=== PATIENT | female | born 2000 | race Caucasian/White ===

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

== ENCOUNTER → 2019-09-28 | Outpatient (CLI) | payer OTHER, MEDICAID ==
[~2019-09-28] MED LIST changes: +OMEP1CAP73 PO; -OMEP20CA4 PO
[2019-09-28 09:51] LABS: BASO % 0.6 % (0.0-1.0); EOS # 0.1 10^3/uL (0.0-0.5); EOS % 1.9 % (0.0-3.0); HEMATOCRIT 41.9 % (36.0-47.0); HEMOGLOBIN 13.5 g/dl (12.0-15.5); LYMPH # 2.2 10^3/uL (1.5-5.0); LYMPH % 29.8 % (24.0-44.0); MEAN CORPUSCULAR HEMOGLOBIN 28.1 pg (27.0-33.0); MEAN CORPUSCULAR HGB CONC 32.2 g/dl (32.0-36.5); MEAN CORPUSCULAR VOLUME 87.1 fl (80.0-96.0); MONO # 0.5 10^3/uL (0.0-0.8); MONO % 6.4 % (0.0-5.0); NEUTROPHILS # 4.4 10^3/uL (1.5-8.5); PLATELET COUNT, AUTOMATED 322 10^3/uL (150-450); RED BLOOD COUNT 4.81 10^6/uL (4.00-5.40); WHITE BLOOD COUNT 7.2 10^3/uL (4.0-10.0)
[2019-09-28 10:16] LABS: ALBUMIN 3.5 GM/DL (3.2-5.2); ALT/SGPT 28 U/L (12-78); BILIRUBIN,TOTAL 0.3 MG/DL (0.2-1.0); BLOOD UREA NITROGEN 11 MG/DL (7-18); CALCIUM LEVEL 9.2 MG/DL (8.5-10.1); CARBON DIOXIDE LEVEL 23 MEQ/L (21-32); CHLORIDE LEVEL 106 MEQ/L (98-107); GLUCOSE, FASTING 89 MG/DL (70-100); POTASSIUM SERUM 4.5 MEQ/L (3.5-5.1); SODIUM LEVEL 140 MEQ/L (136-145)
== END ==
LOC: M WUC 08:09
PROVIDERS: ATTEND Nurse Practitioner Adult Health
DX: R10.31 Right lower quadrant pain (principal); K58.0 Irritable bowel syndrome with diarrhea; R10.11 Right upper quadrant pain

== ENCOUNTER → 2020-01-15 | Outpatient (REF) | payer OTHER, MEDICAID | LOC: M WUC 16:42 | PROVIDERS: ATTEND Nurse Practitioner Family | DX: J02.9 Acute pharyngitis, unspecified (principal) ==

== ENCOUNTER 2020-04-05 19:03 | Emergency (ER) | payer OTHER, MEDICAID ==
[~2020-04-05] VITALS: Ht 157.5 cm; Wt 56.6 kg
[2020-04-05] MEDS ORDERED: ENSK1TAB3 (19:14)
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
--- OUTSIDE RECORDS SUMMARY | 2020-04-05 19:14 | CCD | Continuity of Care Document ---
Author Author Vicky DUNHAM Organization Unknown Address [address] [facility] [address] [place] [address] Phone [phone] Care Team Providers Care Portable Feed Mill Operator Name Role Phone Montez Kelly MD AUTM [phone] Montez Kelly MD AUTM [phone] Victorina Cardenas MD AUTM [phone] Problems Description No Information Available Social History Type Date Description Comments Sex Unknown ETOH Use Denies alcohol use Tobacco Use Start: Unknown Denies Smoking Allergies, Adverse Reactions, Alerts Description No Known Drug Allergies Medications Active Medications SIG Qnty Indications Ordering Provide r Date Sprintec 28 0.25-35mg-mcg Tablets Unknown Omeprazole 20mg Capsules DR 1 by mouth every day Unknown Immunizations Description No Information Available Vital Signs Date Vital Result Comment 02/28/2020 9:13am Body Temperature 97.1 F Height 62 inches 5'2" Weight 125.00 lb BMI (Body Mass Index) 22.9 kg/m2 01/13/2018 10:24am Body Temperature 98.7 F Height 63 inches 5'3" Weight 117.12 lb BMI (Body Mass Index) 20.7 kg/m2 Results Description No Information Available Procedures Date Code Description Status 02/28/2020 02247 X-Ray Shoulder Complete Complete d Medical Devices Description No Information Available Encounters Type Date Location Provider Dx Diagnosis Office Visit 03/28/2020 1:30p [facility] Brenda Dunham PA-C S4 6.112D Strain of musc/fasc/tend long head of biceps, left arm, subs S46.012D Strain of musc/tend the rota tor cuff of left shoulder, subs Office Visit 02/28/2020 9:00a [facility] Brenda Dunham PA-C S4 6.112A Strain of musc/fasc/tend long head of biceps, left arm, init S46.012A Strain of musc/tend the rota tor cuff of left shoulder, init Assessments Date Code Description Provider 03/28/2020 S46.112D Strain of muscle, fa scia and tendon of long head of biceps, left arm, subsequent encounter Brenda Dunham PA-C 03/28/2020 S46.012D Strain of muscle(s) and tendon(s) of the rotator cuff of left shoulder, subsequent encounter Brenda Dunham PA-C 02/28/2020 S46.112A Strain of muscle, fa scia and tendon of long head of biceps, left arm, initial encounter Brenda Dunham PA-C 02/28/2020 S46.012A Strain of muscle(s) and tendon(s) of the rotator cuff of left shoulder, initial encounter Brenda Dunham PA-C Plan of Treatment 03/28/2020 - Brenda Dunham PA-C* S46.112D Strain of muscle, fascia and tendon of long head of biceps, left arm, subsequent encounter* New Xrays:* MRI Arthrogram LT Shoulder, Ordered: 03/28/20 * Follow up:* after lt shoulder mri arthrogram for results with bms * S46.012D Strain of muscle(s) and tendon(s) of the rotator cuff of left shoulder, subsequent encounter Functional Status Description No Information Available Mental Status Description No Information Available Referrals Refer to Reason for Referral Status Appt Date Pauline Quezada PA-C AUTHORIZATION FOR PHYSICAL T HERAPY EVAL 02679, 07449, 80303. PATIENT GOING TO [facility]. PASSED TO CHART. HW Created 00 [address] [facility] [address] [place] [address] [phone]
--- OUTSIDE RECORDS SUMMARY | 2020-04-05 19:14 | CCD | Continuity of Care Document ---
Author Author Vicky MARINO Organization Unknown Address [address] [place] [address] Phone [phone] Care Team Providers Care Cupola Repairer Name Role Phone [facility] AUTM [phone] Problems Description No Information Available Social History Type Date Description Comments Sex Unknown ETOH Use Denies alcohol use Tobacco Use Start: Unknown Patient has never smoked Smoking Status Reviewed: 01/14/20 Patient has never smoked Allergies, Adverse Reactions, Alerts Description No Known Drug Allergies Medications Active Medications SIG Qnty Indications Ordering Provide r Date Prednisone 20mg Tablets 1 tab twice a day for 4 days 8tabs J02.9 Jack Teague JR., M.D. R21 [place] Unknown Immunizations Description No Information Available Vital Signs Date Vital Result Comment 01/14/2020 7:18pm BP Systolic 118 mmHg BP Diastolic 79 mmHg Heart Rate 91 /min Respiratory Rate 14 /min O2 % BldC Oximetry 100 % Body Temperature 98.6 F Weight 125.00 lb Height 62 inches 5'2" BMI (Body Mass Index) 22.9 kg/m2 Pain Level 7 01/13/2020 7:04pm BP Systolic 135 mmHg BP Diastolic 82 mmHg Heart Rate 102 /min Respiratory Rate 16 /min O2 % BldC Oximetry 98 % Body Temperature 99.1 F Weight 125.00 lb Height 62 inches 5'2" BMI (Body Mass Index) 22.9 kg/m2 Pain Level 8 Results Test Acquired Date Facility Test Result H/L Range Note Throat Culture 01/15/2020 [facility] [address] [place] [address] [phone] Throat Culture FULL REPORT IN L <SEE NOTE> Normal 1 1 FULL REPORT IN LAB NOTES (eC W and [facility]). NORMAL POONAM PRESENT Procedures Description No Information Available Medical Devices Description No Information Available Encounters Type Date Location Provider Dx Diagnosis Office Visit 01/14/2020 7:10p Main Office Mei Marino NP J02. 9 Acute pharyngitis, unspecified R21 Rash and other nonspecific s kin eruption Assessments Date Code Description Provider 01/14/2020 J02.9 Acute pharyngitis, unspecified S basilio Marino NP 01/14/2020 R21 Rash and other nonspecific skin eruption Mei Marino NP Plan of Treatment No Information Available Functional Status Description No Information Available Mental Status Description No Information Available Referrals Description No Information Available
--- OUTSIDE RECORDS SUMMARY | 2020-04-05 19:14 | CCD | Continuity of Care Document ---
Author Author Vicky DUNHAM Organization Unknown Address [address] [address] Phone [phone] Care Team Providers Care Imaging Center Manager Name Role Phone Montez Kelly MD AUTM [phone] Montez Kelly MD AUTM [phone] Victorina Cardenas MD AUTM [phone] Problems Description No Information Available Social History [...] Available Procedures Date Code Description Status 02/28/2020 43895 X-Ray Shoulder Complete Complete d Medical Devices Description No Information Available Encounters Description No Information Available Assessments Date Code Description Provider 02/28/2020 S46.112A Strain of muscle, fa scia and tendon of long head of biceps, left arm, initial encounter Brenda Dunham PA-C Plan of Treatment 02/28/2020 - Brenda Dunham PA-C* S46.112A Strain of muscle, fascia and tendon of long head of biceps, left arm, initial encounter* Follow up:* 3 weeks with BMS for left shoulder recheck Functional Status Description No Information Available Mental Status Description No Information Available Referrals Description No Information Available
--- OUTSIDE RECORDS SUMMARY | 2020-04-05 19:14 | CCD | Continuity of Care Document ---
Author Author Vicky MARINO Organization Unknown Address [address] [place] [address] [place] [address] Phone [phone] Care Team Providers Care Clinic Supervisor Name Role Phone [facility] Problems Description No Information Available Social History [...] Result H/L Range Note Throat Culture 01/15/2020 [facility] [address] [place] [address] [phone] Throat Culture FULL REPORT IN L <SEE NOTE> Normal 1 Laboratory test finding 01/14/2020 [facility] [address] [place] [address] [phone] Throat Culture <pending> 1 FULL REPORT IN LAB NOTES ([facility] and [facility]). NORMAL POONAM PRESENT Procedures Description No Information [...]
--- OUTSIDE RECORDS SUMMARY | 2020-04-05 19:14 | CCD | Continuity of Care Document ---
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 TERMINAL ILEU <SEE NOTE> 1 Pathologic Diagnosis - ILEAL MUCOSA W <SEE NOTE> 2 Pathologic Diagnosis - NO SPRUE-LIKE <SEE NOTE> 3 Pathologic Diagnosis B. RANDOM COLON <SEE NOTE> 4 Pathologic Diagnosis -COLONIC MUCOSA <SEE NOTE> 5 Pathologic Diagnosis GRANULOMAS NOR D <SEE NOTE> 6 Pathologic Diagnosis CODE/S: 7 Pathologic Diagnosis 05146 X2 8 Pathologic Diagnosis -NO INTESTINAL M <SEE NOTE> 9 Pathologic Diagnosis <SEE NOTE> 10 Pathologic Diagnosis . 11 Pathologic Diagnosis -DUODENAL MUCOSA <SEE NOTE> 12 Pathologic Diagnosis LYMPHOCYTES Pathologic Diagnosis -NO SPRUE-LIKE F <SEE NOTE> 13 Pathologic Diagnosis CODE/S: Pathologic Diagnosis 66287 X4 Pathologic Diagnosis <SEE NOTE> 14 Pathologic [...] NOTE> 42 Laboratory test finding 11/23/2019 [facility] [id number] Not Detected Normal Not Detected 43 CBC With Differential 09/28/2019 [facility] White Blood Count 7.2 10 Normal 4.0-10.0 [...] 36.0-66.0 Lymph % 29.8 % Normal 24.0-44.0 Prairie % 6.4 % High 0.0-5.0 Eos % 1.9 % Normal 0.0-3.0 Baso % 0.6 % Normal 0.0-1.0 Immature Granulocyte % 0.3 % Normal 0-3.0 Nucleated Red Blood Cell % 0.0 % Normal 0-0 Neutrophils # 4.4 10 Normal 1.5-8.5 Lymph # 2.2 10 Normal 1.5-5.0 Prairie # 0.5 10 Normal 0.0-0.8 Eos # 0.1 10 Normal 0.0-0.5 Baso # 0.0 10 Normal 0.0-0.2 Comprehensive Metabolic Profil 09/28/2019 [facility] Glucose, Fasting 89 mg/dL Normal 70-100 Blood [...] developed and its perfomance characteristics determined by [employer]. Nucleic acid amplification tests include PCR and [...] (RADHA) Procedures Date Code Description Status 09/02/2019 47210 Admin Patient Focused Health Ris k Assessment Instrument Completed 09/02/2019 23653 Brief Emotional/Beha v Assessment W/ Scoring Doc [...] Da ARTEMIO Martinez, PNP 09/27/2019 Z79.899 Other senior care (current) drug t herapy ARTEMIO Frias, PNP 09/16/2019 K58.0 Irritable bowel syndrome with di arrhea ARTEMIO Frias, PNP 09/16/2019 G47.00 Insomnia, unspecified ARTEMIO Frias, PNP 09/16/2019 F41.9 Anxiety disorder, unspecified Da ARTEMIO Martinez, PNP 09/16/2019 F33.0 Major depressive disorder, recur rent, mild ARTEMIO Frias, PNP 09/16/2019 F43.12 Post-traumatic stress disorder, chronic ARTEMIO Frias, PNP 09/16/2019 Z79.899 Other senior care (current) drug t herapy ARTEMIO Frias, PNP 09/02/2019 Z00.01 Encounter for [facility] adult medical examination with abnormal findings ARTEMIO Frias, PNP 09/02/2019 G47.00 Insomnia, unspecified ARTEMIO Frias, PNP 09/02/2019 F41.9 Anxiety disorder, unspecified ARTEMIO Petit, PNP 09/02/2019 F33.0 Major depressive disorder, recur rent, mild ARTEMIO Frias, PNP 09/02/2019 F43.12 Post-traumatic stress disorder, chronic ARTEMIO Frias, PNP Plan of Treatment Future Appointment(s):* 03/03/2020 5:00 pm - Yaya Serrato LCSW at [facility] * 02/15/2020 1:20 pm - ARTEMIO Frias PNP at [facility] 01/25/2020 - ARTEMIO Frias PNP* F33.0 Major [...] to Reason for Referral Status Appt Date [facility] Dr Becerra, Please see this 19 yo female who has has senior care problems with anxiety, social phobia, agoraphobia. She has lost 2 jobs over the past month and has been home since. She is requesting referral to psychiatry for assessment and treatment Sent 03/03/[address] [place] [address] [phone] Please see this 19 yo female who [...]
--- OUTSIDE RECORDS SUMMARY | 2020-04-05 19:14 | CCD | Continuity of Care Document ---
Author Author Vicky MARINO Organization Unknown Address [address] [place] [address] [place] [address] Phone [phone] Care Team Providers Care Insurance Licensing Supervisor Name Role Phone [facility] Problems Description No Information Available Social History [...] Date Facility Test Result H/L Range Note Laboratory test finding 01/14/2020 [facility] [address] [place] [address] [id number] [phone] Throat Culture <pending> Procedures Description No Information Available Medical Devices Description No Information Available Encounters Type Date Location Provider Dx Diagnosis Office Visit 01/14/2020 7:10p Main Office Mei Marino NP J02. 9 Acute pharyngitis, unspecified R21 Rash and other nonspecific s kin eruption Assessments Date Code Description Provider 01/14/2020 J02.9 Acute pharyngitis, unspecified S basilio Marino NP 01/14/2020 R21 Rash and other nonspecific skin eruption Mie Marino NP Plan of Treatment No Information Available Functional Status Description No Information Available Mental Status Description No Information Available Referrals Description No Information Available
--- OUTSIDE RECORDS SUMMARY | 2020-04-05 19:14 | CCD | Continuity of Care Document ---
Author Author Vicky DUNHAM Organization Unknown Address [address] [address] Phone [phone] Care Team Providers Care Punch Operator Name Role Phone Montez Kelly MD AUTM [phone] Montez Kelly MD AUTM [phone] Victorina Cardenas MD AUTM [phone] Problems Description No Information Available Social History [...] Available Procedures Date Code Description Status 02/28/2020 47735 X-Ray Shoulder Complete Complete d Medical Devices Description No Information Available Encounters Type Date Location Provider Dx Diagnosis Office Visit 02/28/2020 9:[place]a [place] S4 6.112A Strain of musc/fasc/tend long head of biceps, left arm, init S46.012A Strain of musc/tend the rota tor cuff of left shoulder, init Assessments Date Code Description Provider 02/28/2020 S46.112A Strain of muscle, fa scia and tendon of long head of biceps, left arm, initial encounter Brenda Dunham PA-C 02/28/2020 S46.012A Strain of muscle(s) and tendon(s) of the rotator cuff of left shoulder, initial encounter Brenda Dunham PA-C Plan of Treatment Future Appointment(s):* 03/28/2020 1:30 pm - Brenda Dunham PA-C at [place] 02/28/2020 - Brenda Dunham PA-C* S46.112A Strain of muscle, fascia and tendon of long head of biceps, left arm, initial encounter* Follow up:* 3 weeks with BMS for left shoulder recheck * S46.012A Strain of muscle(s) and tendon(s) of the rotator cuff of left shoulder, initial encounter Functional Status Description No Information Available Mental Status Description No Information Available Referrals Refer to Dr Reason for Referral Status Appt Date Pauline Quezada PA-C AUTHORIZATION FOR PHYSICAL T HERAPY EVAL 60060, [address], [address]. PATIENT GOING TO [facility]. PASSED TO CHART. HW Created 00 [address] [facility] [address] [place] [address] [phone]
--- OUTSIDE RECORDS SUMMARY | 2020-04-05 19:15 | CCD ---
Author Author [facility] Organization [facility] Address Unknown Phone Unavailable Care Team Providers Care Crew Car Driver Name Role Phone Sandra FARAH MD Unavailable Unavailable Sandra FARAH MD Unavailable Unavailable Sandra FARAH MD Unavailable Unavailable Sandra FARAH MD Unavailable Unavailable Sandra FARAH MD Unavailable Unavailable Sandra FARAH MD Unavailable Unavailable Sandra FARAH MD Unavailable Unavailable Sandra FARAH MD Unavailable Unavailable Sandra FARAH MD Unavailable Unavailable Sandra FARAH MD Unavailable Unavailable Sandra FARAH MD Unavailable Unavailable Sandra FARAH MD Unavailable Unavailable Sandra FARAH MD Unavailable Unavailable Sandra FARAH MD Unavailable Unavailable Sandra FARAH MD Unavailable Unavailable BRYANT FERNÁNDEZ MD Unavailable Unavailable BRYANT FERNÁNDEZ MD Unavailable Unavailable BRYANT FERNÁNDEZ MD Unavailable Unavailable FERNÁNDEZBRYANT Jurado MD Unavailable Unavailable FERNÁNDEZBRYANT Jurado MD Unavailable Unavailable FERNÁNDEZBRYANT Jurado MD Unavailable Unavailable BRYANT FERNÁNDEZ MD Unavailable Unavailable FERNÁNDEZBRYANT Jurado MD Unavailable Unavailable FERNNÁDEZBRYANT Jurado MD Unavailable Unavailable FERNÁNDEZBRYANT Jurado MD Unavailable Unavailable FERNÁNDEZBRYANT Jurado MD Unavailable Unavailable FERNÁNDEZBRYANT Jurado MD Unavailable Unavailable FERNÁNDEZBRYANT Jurado MD Unavailable Unavailable FERNÁNDEZBRYANT Jurado MD Unavailable Unavailable FERNÁNDEZBRYANT Jurado MD Unavailable Unavailable FERNÁNDEZBRYANT Jurado MD Unavailable Unavailable FERNÁNDEZBRYANT Jurado MD Unavailable Unavailable FERNÁNDEZBRYANT Jurado MD Unavailable Unavailable FERNÁNDEZBRYANT Jurado MD Unavailable Unavailable FERNÁNDEZBRYANT Jurado MD Unavailable Unavailable FERNÁNDEZBRYANT Jurado MD Unavailable Unavailable FERNÁNDEZBRYANT Jurado MD Unavailable Unavailable FERNÁNDEZBRYANT Jurado MD Unavailable Unavailable FERNÁNDEZBRYANT Jurado MD Unavailable Unavailable FERNÁNDEZBRYANT Jurado MD Unavailable Unavailable FERNÁNDEZBRYANT Jurado MD Unavailable Unavailable BRYANT FERNÁNDEZ MD Unavailable Unavailable FERNÁNDEZBRYANT Jurado MD Unavailable Unavailable FERNÁNDEZBRYANT Jurado MD Unavailable Unavailable BRYANT FERNÁNDEZ MD Unavailable Unavailable BRYANT FERNÁNDEZ MD Unavailable Unavailable BRYANT FERNÁNDEZ MD Unavailable Unavailable BRYANT FERNÁNDEZ MD Unavailable Unavailable BRYANT FERNÁNDEZ MD Unavailable Unavailable BRYANT FERNÁNDEZ MD Unavailable Unavailable BRYANT FERNÁNDEZ MD Unavailable Unavailable BRYANT FERNÁNDEZ MD Unavailable Unavailable BRYANT FERNÁNDEZ MD Unavailable Unavailable BRYANT FERNÁNDEZ MD Unavailable Unavailable BRYANT FERNÁNDEZ MD Unavailable Unavailable BRYANT FERNÁNDEZ MD Unavailable Unavailable BRYANT FERNÁNDEZ MD Unavailable Unavailable BRYANT FERNÁNDEZ MD Unavailable Unavailable BRYANT FERNÁNDEZ MD Unavailable Unavailable FERNÁNDEZBRYANT Jurado MD Unavailable Unavailable OKHMAN, DIXIE SEMICONDUCTOR WAFERS ETCHER STRIPPER Unavailable Unavailable OKHMAN, DIXIE SEMICONDUCTOR WAFERS ETCHER STRIPPER Unavailable Unavailable OKHMAN, DIXIE SEMICONDUCTOR WAFERS ETCHER STRIPPER Unavailable Unavailable OKHMAN, DIXIE SEMICONDUCTOR WAFERS ETCHER STRIPPER Unavailable Unavailable OKHMAN, DIXIE SEMICONDUCTOR WAFERS ETCHER STRIPPER Unavailable Unavailable OKHMAN, DIXIE SEMICONDUCTOR WAFERS ETCHER STRIPPER Unavailable Unavailable OKHMAN, DIXIE SEMICONDUCTOR WAFERS ETCHER STRIPPER Unavailable Unavailable OKHMAN, DIXIE SEMICONDUCTOR WAFERS ETCHER STRIPPER Unavailable Unavailable OKHMAN, DIXIE SEMICONDUCTOR WAFERS ETCHER STRIPPER Unavailable Unavailable OKHMAN, DIXIE SEMICONDUCTOR WAFERS ETCHER STRIPPER Unavailable Unavailable OKHMAN, DIXIE SEMICONDUCTOR WAFERS ETCHER STRIPPER Unavailable Unavailable OKHMAN, DIXIE SEMICONDUCTOR WAFERS ETCHER STRIPPER Unavailable Unavailable OKHMAN, DIXIE SEMICONDUCTOR WAFERS ETCHER STRIPPER Unavailable Unavailable OKHMAN, DIXIE SEMICONDUCTOR WAFERS ETCHER STRIPPER Unavailable Unavailable OKHMAN, DIXIE SEMICONDUCTOR WAFERS ETCHER STRIPPER Unavailable Unavailable OKHMAN, DIXIE SEMICONDUCTOR WAFERS ETCHER STRIPPER Unavailable Unavailable OKHMAN, DIXIE SEMICONDUCTOR WAFERS ETCHER STRIPPER Unavailable Unavailable OKHMAN, DIXIE SEMICONDUCTOR WAFERS ETCHER STRIPPER Unavailable Unavailable OKHMAN, DIXIE SEMICONDUCTOR WAFERS ETCHER STRIPPER Unavailable Unavailable OKHMAN, DIXIE SEMICONDUCTOR WAFERS ETCHER STRIPPER Unavailable Unavailable OKHMAN, DIXIE SEMICONDUCTOR WAFERS ETCHER STRIPPER Unavailable Unavailable OKHMAN, DIXIE SEMICONDUCTOR WAFERS ETCHER STRIPPER Unavailable Unavailable OKHMAN, DIXIE SEMICONDUCTOR WAFERS ETCHER STRIPPER Unavailable Unavailable OKHMAN, DIXIE SEMICONDUCTOR WAFERS ETCHER STRIPPER Unavailable Unavailable OKHMAN, DIXIE SEMICONDUCTOR WAFERS ETCHER STRIPPER Unavailable Unavailable OKHMAN, DIXIE SEMICONDUCTOR WAFERS ETCHER STRIPPER Unavailable Unavailable OKHMAN, DIXIE SEMICONDUCTOR WAFERS ETCHER STRIPPER Unavailable Unavailable OKHMAN, DIXIE SEMICONDUCTOR WAFERS ETCHER STRIPPER Unavailable Unavailable OKHMAN, DIXIE SEMICONDUCTOR WAFERS ETCHER STRIPPER Unavailable Unavailable OKHMAN, DIXIE SEMICONDUCTOR WAFERS ETCHER STRIPPER Unavailable Unavailable OKHMAN, DIXIE SEMICONDUCTOR WAFERS ETCHER STRIPPER Unavailable Unavailable OKHMAN, DIXIE SEMICONDUCTOR WAFERS ETCHER STRIPPER Unavailable Unavailable OKHMAN, DIXIE SEMICONDUCTOR WAFERS ETCHER STRIPPER Unavailable Unavailable OKHMAN, DIXIE SEMICONDUCTOR WAFERS ETCHER STRIPPER Unavailable Unavailable OKHMAN, DIXIE SEMICONDUCTOR WAFERS ETCHER STRIPPER Unavailable Unavailable OKHMAN, DIXIE SEMICONDUCTOR WAFERS ETCHER STRIPPER Unavailable Unavailable Dunham, M Barratt PA Unavailable Unavailable Dunham, M Barratt PA Unavailable Unavailable Dunham, M Barratt PA Unavailable Unavailable Dunham, M Barratt PA Unavailable Unavailable Dunham, M Barratt PA Unavailable Unavailable Dunham, M Barratt PA Unavailable Unavailable Dunham, M Barratt PA Unavailable Unavailable Dunham, M Barratt PA Unavailable Unavailable Dunham, M Barratt PA Unavailable Unavailable Dunham, M Barratt PA Unavailable Unavailable Dunham, M Barratt PA Unavailable Unavailable Dunham, M Barratt PA Unavailable Unavailable Dunham, M Barratt PA Unavailable Unavailable Dunham, M Barratt PA Unavailable Unavailable Dunham, M Barratt PA Unavailable Unavailable Dunham, M Barratt PA Unavailable Unavailable Dunham, M Barratt PA Unavailable Unavailable Dunham, M Barratt PA Unavailable Unavailable Dunham, M Barratt PA Unavailable Unavailable Dunham, M Barratt PA Unavailable Unavailable Dunham, M Barratt PA Unavailable Unavailable Dunham, M Barratt PA Unavailable Unavailable Dunham, M Barratt PA Unavailable Unavailable Dunham, M Barratt PA Unavailable Unavailable Dunham, M Barratt PA Unavailable Unavailable Dunham, M Barratt PA Unavailable Unavailable ANDREIA, JAYLA PA Unavailable Unavailable ANDREIA, JAYLA PA Unavailable Unavailable ANDREIA, JAYLA PA Unavailable Unavailable ANDREIA, JAYLA PA Unavailable Unavailable ANDREIA, JAYLA PA Unavailable Unavailable ANDREIA, JAYLA PA Unavailable Unavailable ANDREIA, JAYLA PA Unavailable Unavailable ANDREIA, JAYLA PA Unavailable Unavailable ANDREIA, JAYLA PA Unavailable Unavailable ANDREIA, JAYLA PA Unavailable Unavailable ANDREIA, JAYLA PA Unavailable Unavailable ANDREIA, JAYLA PA Unavailable Unavailable ANDREIA, JAYLA PA Unavailable Unavailable ANDREIA, JAYLA PA Unavailable Unavailable ANDREIA, JAYLA PA Unavailable Unavailable ANDREIA, JAYLA PA Unavailable Unavailable ANDREIA, JAYLA PA Unavailable Unavailable ANDREIA, JAYLA PA Unavailable Unavailable ANDREIA, JAYLA PA Unavailable Unavailable ANDREIA, JAYLA PA Unavailable Unavailable ANDREIA, JAYLA PA Unavailable Unavailable ANDREIA, JAYLA PA Unavailable Unavailable ANDREIA, JAYLA PA Unavailable Unavailable ANDREIA, JAYLA PA Unavailable Unavailable ANDREIA, JAYLA PA Unavailable Unavailable ANDREIA, JAYLA PA Unavailable Unavailable ANDREIA, JAYLA PA Unavailable Unavailable ANDREIA, JAYLA PA Unavailable Unavailable ANDREIA, JAYLA PA Unavailable Unavailable ANDREIA, JAYLA PA Unavailable Unavailable ANDREIA, JAYLA PA Unavailable Unavailable ANDREIA, JAYLA PA Unavailable Unavailable ANDREIA, JAYLA PA Unavailable Unavailable ANDREIA, JAYLA PA Unavailable Unavailable ANDREIA, JAYLA PA Unavailable Unavailable ANDREIA, JAYLA PA Unavailable Unavailable ANDREIA, JAYLA PA Unavailable Unavailable ANDREIA, JAYLA PA Unavailable Unavailable Dille, E Citlaly DDS Unavailable Unavailable Dille, E Citlaly DDS Unavailable Unavailable Dille, E Citlaly DDS Unavailable Unavailable Dille, E Citlaly DDS Unavailable Unavailable BRYANT FERNÁNDEZ MD Unavailable Unavailable BRYANT FERNÁNDEZ MD Unavailable Unavailable BRYANT FERNÁNDEZ MD Unavailable Unavailable BRYANT FERNÁNDEZ MD Unavailable Unavailable BRYANT FERNÁNDEZ MD Unavailable Unavailable BRYANT FERNÁNDEZ MD Unavailable Unavailable BRYANT FERNÁNDEZ MD Unavailable Unavailable BRYANT FERNÁNDEZ MD Unavailable Unavailable BRYANT FERNÁNDEZ MD Unavailable Unavailable BRYANT FERNÁNDEZ MD Unavailable Unavailable BRYANT FERNÁNDEZ MD Unavailable Unavailable BRYANT FERNÁNDEZ MD Unavailable Unavailable BRYANT FERNÁNDEZ MD Unavailable Unavailable BRYANT FERNÁNDEZ MD Unavailable Unavailable BRYANT FERNÁNDEZ MD Unavailable Unavailable BRYANT FERNÁNDEZ MD Unavailable Unavailable BRYANT FERNÁNDEZ MD Unavailable Unavailable BRYANT FERNÁNDEZ MD Unavailable Unavailable BRYANT FERNÁNDEZ MD Unavailable Unavailable BRYANT FERNÁNDEZ MD Unavailable Unavailable BRYANT FERNÁNDEZ MD Unavailable Unavailable BRYANT FERNÁNDEZ MD Unavailable Unavailable BRYANT FERNÁNDEZ MD Unavailable Unavailable BRYANT FERNÁNDEZ MD Unavailable Unavailable BRYANT FERNÁNDEZ MD Unavailable Unavailable BRYANT FERNÁNDEZ MD Unavailable Unavailable BRYANT FERNÁNDEZ MD Unavailable Unavailable BRYANT FERNÁNDEZ MD Unavailable Unavailable BRYANT FERNÁNDEZ MD Unavailable Unavailable BRYANT FERNÁNDEZ MD Unavailable Unavailable BRYANT FERNÁNDEZ MD Unavailable Unavailable BRYANT FERNÁNDEZ MD Unavailable Unavailable BRYANT FERNÁNDEZ MD Unavailable Unavailable BRYANT FERNÁNDEZ MD Unavailable Unavailable BRYANT FERNÁNDEZ MD Unavailable Unavailable BRYANT FERNÁNDEZ MD Unavailable Unavailable BRYANT FERNÁNDEZ MD Unavailable Unavailable BRYANT FERNÁNDEZ MD Unavailable Unavailable BRYANT FERNÁNDEZ MD Unavailable Unavailable BRYANT FERNÁNDEZ MD Unavailable Unavailable BRYANT FERNÁNDEZ MD Unavailable Unavailable BRYANT FERNÁNDEZ MD Unavailable Unavailable BRYANT FERNÁNDEZ MD Unavailable Unavailable BRYANT FERNÁNDEZ MD Unavailable Unavailable BRYANT FERNÁNDEZ MD Unavailable Unavailable Mandi, Katarina Kallie ANP-BC Unavailable Unavailable Mandi, Katarina Kallie ANP-BC Unavailable Unavailable Mandi, Katarina Kallie ANP-BC Unavailable Unavailable Mandi, Katarina Kallie ANP-BC Unavailable Unavailable Mandi, Katarina Kallie ANP-BC Unavailable Unavailable Mandi, Katarina Kallie ANP-BC Unavailable Unavailable Mandi, Katarina Kallie ANP-BC Unavailable Unavailable Mandi, Katarina Kallie ANP-BC Unavailable Unavailable Mandi, Katarina Kallie ANP-BC Unavailable Unavailable Mandi, Katarina Kallie ANP-BC Unavailable Unavailable Mandi, Katarina Kallie ANP-BC Unavailable Unavailable Mandi, Katarina Kallie ANP-BC Unavailable Unavailable Mandi, Katarina Kallie ANP-BC Unavailable Unavailable Mandi, Katarina Kallie ANP-BC Unavailable Unavailable Mandi, Katarina Kallie ANP-BC Unavailable Unavailable Mandi, Katarina Kallie ANP-BC Unavailable Unavailable Mandi, Katarina Kallie ANP-BC Unavailable Unavailable Mandi, Katarina Kallie ANP-BC Unavailable Unavailable Mandi, Katarina Kallie ANP-BC Unavailable Unavailable Mandi, Katarina Kallie ANP-BC Unavailable Unavailable Mandi, Katarina Kallie ANP-BC Unavailable Unavailable Mandi, Katarina Kallie ANP-BC Unavailable Unavailable Mandi, Katarina Kallie ANP-BC Unavailable Unavailable Mandi, Katarina Kallie ANP-BC Unavailable Unavailable Mandi, Katarina Kallie ANP-BC Unavailable Unavailable Mandi, Katarina Kallie ANP-BC Unavailable Unavailable Mandi, Katarina Kallie ANP-BC Unavailable Unavailable Mandi, Katarina Kallie ANP-BC Unavailable Unavailable Mandi, Katarina Kallie ANP-BC Unavailable Unavailable Mandi, Katarina Kallie ANP-BC Unavailable Unavailable Mandi, Katarina Kallie ANP-BC Unavailable Unavailable Mandi, Katarina Kallie ANP-BC Unavailable Unavailable Mandi, Katarina Kallie ANP-BC Unavailable Unavailable Mandi, Katarina Kallie ANP-BC Unavailable Unavailable Mandi, Katarina Kallie ANP-BC Unavailable Unavailable Mandi, Katarina Kallie ANP-BC Unavailable Unavailable Mandi, Katarina Kallie ANP-BC Unavailable Unavailable Mandi, Katarina Kallie ANP-BC Unavailable Unavailable Mandi, Katarina Kallie ANP-BC Unavailable Unavailable Mandi, Katarina Kallie ANP-BC Unavailable Unavailable Mandi, Katarina Kallie ANP-BC Unavailable Unavailable Mandi, Katarina Kallie ANP-BC Unavailable Unavailable Mandi, Katarina Kallie ANP-BC Unavailable Unavailable Mandi, Katarina Kallie ANP-BC Unavailable Unavailable Mandi, Katarina Kallie ANP-BC Unavailable Unavailable Mandi, Katarina Kallie ANP-BC Unavailable Unavailable Mandi, Katarina Kallie ANP-BC Unavailable Unavailable Mandi, Katarina Kallie ANP-BC Unavailable Unavailable Mandi, Katarina Kallie ANP-BC Unavailable Unavailable Mandi, Katarina Kallie ANP-BC Unavailable Unavailable Mandi, Katarina Kallie ANP-BC Unavailable Unavailable Mandi, Katarina Kallie ANP-BC Unavailable Unavailable Mandi, Katarina Kallie ANP-BC Unavailable Unavailable Mandi, Katarina Kallie ANP-BC Unavailable Unavailable Mandi, Katarina Kallie ANP-BC Unavailable Unavailable Mandi, Katarina Kallie ANP-BC Unavailable Unavailable Mandi, Katarina Kallie ANP-BC Unavailable Unavailable Mandi, Katarina Kallie ANP-BC Unavailable Unavailable Mandi, Katarina Kallie ANP-BC Unavailable Unavailable Mandi, Katarina Kallie ANP-BC Unavailable Unavailable Mandi, Katarina Kallie ANP-BC Unavailable Unavailable Mandi, Katarina Kallie ANP-BC Unavailable Unavailable Mandi, Katarina Kallie ANP-BC Unavailable Unavailable Mandi, Katarina Kallie ANP-BC Unavailable Unavailable Gore, Mei SEMICONDUCTOR WAFERS ETCHER STRIPPER Unavailable Unavailable Gore, Mei SEMICONDUCTOR WAFERS ETCHER STRIPPER Unavailable Unavailable Gore, Mei SEMICONDUCTOR WAFERS ETCHER STRIPPER Unavailable Unavailable Gore, Mei SEMICONDUCTOR WAFERS ETCHER STRIPPER Unavailable Unavailable Gore, Mei SEMICONDUCTOR WAFERS ETCHER STRIPPER Unavailable Unavailable Gore, Mei SEMICONDUCTOR WAFERS ETCHER STRIPPER Unavailable Unavailable Gore, Mei SEMICONDUCTOR WAFERS ETCHER STRIPPER Unavailable Unavailable Gore, Mei SEMICONDUCTOR WAFERS ETCHER STRIPPER Unavailable Unavailable Gore, Mei SEMICONDUCTOR WAFERS ETCHER STRIPPER Unavailable Unavailable Gore, Mei SEMICONDUCTOR WAFERS ETCHER STRIPPER Unavailable Unavailable Gore, Mei SEMICONDUCTOR WAFERS ETCHER STRIPPER Unavailable Unavailable Mandi, Katarina Kallie ANP-BC Unavailable Unavailable Mandi, Katarina Kallie ANP-BC Unavailable Unavailable Mandi, Katarina Kallie ANP-BC Unavailable Unavailable Mandi, Katarina Kallie ANP-BC Unavailable Unavailable Mandi, Katarina Kallie ANP-BC Unavailable Unavailable Mandi, Katarina Kallie ANP-BC Unavailable Unavailable Mandi, Katarina Kallie ANP-BC Unavailable Unavailable Mandi, Katarina Kallie ANP-BC Unavailable Unavailable Mandi, Katarina Kallie ANP-BC Unavailable Unavailable Mandi, Katarina Kallie ANP-BC Unavailable Unavailable Mandi, Katarina Kallie ANP-BC Unavailable Unavailable Mandi, Katarina Kallie ANP-BC Unavailable Unavailable Mandi, Katarina Kallie ANP-BC Unavailable Unavailable Mandi, Katarina Kallie ANP-BC Unavailable Unavailable Mandi, Katarina Kallie ANP-BC Unavailable Unavailable Mandi, Katarina Kallie ANP-BC Unavailable Unavailable Mandi, Katarina Kallie ANP-BC Unavailable Unavailable Mandi, Katarina Kallie ANP-BC Unavailable Unavailable Mandi, Katarina Kallie ANP-BC Unavailable Unavailable Mandi, Katarina Kallie ANP-BC Unavailable Unavailable Mandi, Katarina Kallie ANP-BC Unavailable Unavailable Mandi, Katarina Kallie ANP-BC Unavailable Unavailable Mandi, Katarina Kallie ANP-BC Unavailable Unavailable Mandi, Katarina Kallie ANP-BC Unavailable Unavailable Mandi, Katarina Kallie ANP-BC Unavailable Unavailable Mandi, Katarina Kallie ANP-BC Unavailable Unavailable Mandi, Katarina Kallie ANP-BC Unavailable Unavailable Mandi, Katarina Kallie ANP-BC Unavailable Unavailable Mandi, Katarina Kallie ANP-BC Unavailable Unavailable Mandi, Katarina Kallie ANP-BC Unavailable Unavailable Mandi, Katarina Kallie ANP-BC Unavailable Unavailable Mandi, Katarina Kallie ANP-BC Unavailable Unavailable Mandi, Katarina Kallie ANP-BC Unavailable Unavailable Mandi, Katarina Kallie ANP-BC Unavailable Unavailable Mandi, Katarina Kallie ANP-BC Unavailable Unavailable Mandi, Katarina Kallie ANP-BC Unavailable Unavailable Mandi, Katarina Kallie ANP-BC Unavailable Unavailable Mandi, Katarina Kallie ANP-BC Unavailable Unavailable Mandi, Katarina Kallie ANP-BC Unavailable Unavailable Mandi, Katarina Kallie ANP-BC Unavailable Unavailable Mandi, Katarina Kallie ANP-BC Unavailable Unavailable Mandi, Katarina Kallie ANP-BC Unavailable Unavailable Mandi, Katarina Kallie ANP-BC Unavailable Unavailable Mandi, Katarina Kallie ANP-BC Unavailable Unavailable Mandi, Katarina Kallie ANP-BC Unavailable Unavailable Mandi, Katarina Kallie ANP-BC Unavailable Unavailable Mandi, Katarina Kallie ANP-BC Unavailable Unavailable Mandi, Katarina Kallie ANP-BC Unavailable Unavailable Mandi, Katarina Kallie ANP-BC Unavailable Unavailable Mandi, Katarina Kallie ANP-BC Unavailable Unavailable Mandi, Katarina Kallie ANP-BC Unavailable Unavailable Mandi, Katarina Kallie ANP-BC Unavailable Unavailable Mandi, Katarina Kallie ANP-BC Unavailable Unavailable Mandi, Katarina Kallie ANP-BC Unavailable Unavailable Mandi, Katarina Kallie ANP-BC Unavailable Unavailable Mandi, Katarina Kallie ANP-BC Unavailable Unavailable Mandi, Katarina Kallie ANP-BC Unavailable Unavailable Mandi, Katarina Kallie ANP-BC Unavailable Unavailable Mandi, Katarina Kallie ANP-BC Unavailable Unavailable Mandi, Katarina Kallie ANP-BC Unavailable Unavailable Mandi, Katarina Kallie ANP-BC Unavailable Unavailable Mandi, Katarina Kallie ANP-BC Unavailable Unavailable Mandi, Katarina Kallie ANP-BC Unavailable Unavailable Mandi, Katarina Kallie ANP-BC Unavailable Unavailable Re-disclosure Warning The records that you are about to access may contain information from federally-assisted alcohol or drug abuse programs. If such information is present, then the following federally mandated warning applies: This information has been disclosed to you from records protected by federal confidentiality rules (42 CFR part 2). The federal rules prohibit you from making any further disclosure of this information unless further disclosure is expressly permitted by the written consent of the person to whom it pertains or as otherwise permitted by 42 CFR part 2. A general authorization for the release of medical or other information is NOT sufficient for this purpose. The Federal rules restrict any use of the information to criminally investigate or prosecute any alcohol or drug abuse patient.The records that you are about to access may contain highly sensitive health information, the redisclosure of which is protected by Article 27-F of the [facility] Public Health law. If you continue you may have access to information: Regarding HIV / AIDS; Provided by facilities licensed or operated by the [facility] Office of Mental Health; or Provided by the [facility] Office for People With Developmental Disabilities. If such information is present, then the following [facility] mandated warning applies: This information has been disclosed to you from confidential records which are protected by state law. State law prohibits you from making any further disclosure of this information without the specific written consent of the person to whom it pertains, or as otherwise permitted by law. Any unauthorized further disclosure in violation of state law may result in a fine or senior care sentence or both. A general authorization for the release of medical or other information is NOT sufficient authorization for further disc losure. Allergies and Adverse Reactions Type Description Substance Reaction Status Data Source(s ) Drug allergy No Known Drug Allergies No Known Drug Allergies [facility] Drug allergy No Known Allergies No Known Allergies [facility] Drug Class NO KNOWN ALLERGIES NO KNOWN ALLERGIES [facility] Family History Family Member Name Family Member Gender Family Member Status Date o f Status Description Data Source(s) Unknown Male Problem [facility] ([facility]) Unknown Unknown Problem [facility] [place] [place] Unknown Problem [facility] Unknown Female Problem [facility] ([facility]) Encounters Encounter Providers Location Date Indications Data Source(s ) Outpatient Attender: Kallie OVALLEBCConsultant: BRYANT FERNÁNDEZ MD 03/31/2020 02:08:35 PM [facility] Outpatient Attender: Brenda [facility] 12:30:00 PM EST [facility] ([facility]) Outpatient Attender: Brenda [facility] 08:00:00 AM EST [facility] ([facility]) Outpatient Attender: Kallie WILLISonsultant: BRYANT FERNÁNDEZ MD 01/25/2020 03:16:00 PM EST - 01/25/2020 03:16:00 PM [facility] Outpatient Attender: Mei agudelo 01/14/2020 07:10:00 PM EDT [facility] ([facility] [address] [id number] 12/06/2019 12:00:00 AM EDT eCW1 ([facility]) Outpatient Attender: LEIDY FARAH MD ER-ASUR 11/26/2019 09:36:00 AM EDT [facility] Admission cancelled. Disregard status an d admitted date. Outpatient Attender: LEIDY FARAH MD [facility] 11/23/2019 07:08:00 AM EDT [facility] Outpatient Attender: Kallie OVALLEBCConsultant: BRYANT FERNÁNDEZ MD 09/30/2019 08:08:00 AM EDT - 09/30/2019 09:08:00 AM EDT [facility] Patient discharged. Outpatient Attender: [facility] 08/2019 02:20:00 PM EDT [facility] Attender: Kallie OVALLEBCConsultant: BRYANT FERNÁNDEZ MD 09/27/2019 02:16:00 PM EDT - 09/27/2019 02:16:00 PM EDT [facility] Outpatient Attender: [facility]ie [facility] 08/22 08:20:00 AM EDT [facility] ([facility]) Outpatient Attender: Kallie OVALLEBCConsultant: BRYANT FERNÁNDEZ MD 09/02/2019 08:18:00 AM EDT - 09/02/2019 08:18:00 AM EDT [facility] Outpatient Attender: Citlaly BLACK 08/31/2019 07:26:19 P M EDT [facility] Outpatient Attender: DIXIE BAGLEY NPReferrer: BRYANT FERNÁNDEZ MD 08/09/2019 12:00:00 AM [facility] Outpatient Attender: Citlaly BLACK 06/03/2019 09:01:00 P M EDT [facility] Outpatient Attender: JAYLA burns 03/09/2019 04:10:00 PM EST [facility] ([facility]) Medications Medication Brand Name Start Date Product Form Dose Route Admi nistrative Instructions Pharmacy Instructions Status Indications Reaction Description Data Source(s) Paroxetine HCL Paroxetine HCL 01/25/2020 12:00:00 AM EST ORAL active MED[facility] ([facility]) Prednisone 20 MG Oral Tablet Prednisone 01/15/2020 12:00:00 AM EDT completed [facility] ([facility]) Prednisone 20 MG Oral Tablet Prednisone 01/14/2020 12:00:00 AM EDT active [facility] ([facility]) Metronidazole 500 MG Oral Tablet Metronidazole 12/01/2019 12:00:00 AM EDT completed [facility] ([facility]) Mirtazapine 7.5 MG Oral Tablet Mirtazapine 09/02/2019 12:00:00 AM EDT ORAL completed [facility] ([facility]) Amoxicillin 875 MG Oral Tablet Amoxicillin 03/09/2019 12:00:00 AM EST ORAL active MED[facility] ([facility]) Naproxen 375 MG Oral Tablet Naproxen 10/07/2018 12:00:00 AM EDT ORAL completed MED[facility] ([facility]) Insurance Providers Payer name Policy type / Coverage type Policy ID Covered democrat ID Covered democrat's relationship to mcbride Policy Mcbride Plan Information [facility] COMMUNITY PLAN [facility] [id number] EMEDNY [id number] SP [id number] MEDICAID -RECURRING [id number] [facility] COMMUNTY PLAN [id number] 18 [id number] [facility] [id number] S [id number] [facility] COMMUNITY PLAN [facility] [id number] [facility] AMERICHOICE XIX [facility] [place] [id number] 18 [id number] FORMERLY [facility] COMMUNITY PLAN XIX [id number] 18 [id number] Managed Care - MVP P UNAVAILABLE S UNAVAILABLE Medicaid S UNAVAILABLE [place]LE [place] B [id number] Self [id number] [facility] I [id number] Self [id number] MVP H [id number] Self [id number] [facility] Health Maintenance Organization (HMO) [id number] Self [id number] [facility] Communty Plan Medicaid [id number] Self [id number] ANSI-Medicaid [id number] [facility] COMMUNTY PLAN [id number] 18 [id number] [facility] Health Maintenance Organization (HMO) [id number] Self [id number] [facility] Communty Plan Medicaid [id number] Self [id number] [facility]LY [facility] COMMUNITY PLAN XIX [id number] 18 [id number] [facility] Communty Plan Medicaid [id number] Self [id number] [facility] [id number] ANSI-Medicaid [id number] MVP MCDHMO [id number] SP [id number] MVP MCDHMO [id number] SP [id number] MVP MCDHMO [id number] SP [id number] [facility] HEALTH CARE O [id number] S [id number] MVP/Hmo Health Maintenance Organization (HMO) [id number] Self [id number] P/Hmo Health Maintenance Organization (HMO) [id number] Self [id number] [facility] Community Plan Medigap Part B [id number] Self [id number] Guard Ins (WC) Workers Compensation TAW [id number] Self [id number] Pupil Benefits (pr) Commercial [id number] Family Dependent [id number] [place] Medig[place] Part B [id number] Family Dependent [id number] Medicaid-Pcap Medicaid [id number] Family Dependent [id number] Hmo Blue Option Health Maintenance Organization (HMO) [id number] Family Dependent [id number] Medicaid-Pcap Medicaid [id number] Self [id number] [facility] Managed Care Health Maintenance Organization (HMO) [id number] Self [id number] MVP Chip Health Maintenance Organization (HMO) [id number] Self [id number] [facility] Community Plan Health Maintenance Organization (HMO) [id number] Self [id number] ANSI-Not a Secondary Insurance [id number] [facility] Community Plan Medigap Part B [id number] Self [id number] Guard Ins (WC) Workers Compensation TAW [id number] Self [id number] MVP MCDHMO [id number] SP [id number] MVP/Hmo Health Maintenance Organization (HMO) [id number] Self [id number] MVP I [id number] Self [id number] MVP HEALTHCARE [place] [id number] S [id number] NORGU[employer] INSURANCE [id number] S [id number] [facility] [id number] S [id number] ANSI-Not a Secondary Insurance [id number] ANSI-Not a Secondary Insurance [id number] Medicaid-Pcap Medicaid [id number] Family Dependent [id number] Hmo Blue Option Health Maintenance Organization (HMO) [id number] Family Dependent [id number] Medicaid-Pcap Medicaid [id number] Self [id number] [facility] Managed Care Health Maintenance Organization (HMO) [id number] Self [id number] Medicaid-Pcap Medicaid [id number] Family Dependent [id number] Hmo Blue Option Health Maintenance Organization (HMO) [id number] Family Dependent [id number] Medicaid-Pcap Medicaid [id number] Self [id number] MVP Managed Care Health Maintenance Organization (HMO) [id number] Self [id number] MVP HEALTH CARE O [id number] S [id number] Self Pay P [id number] S [id number] MVP H [id number] Self [id number] [facility] I [id number] Self [id number] MVP MEDICAID HMO -O/P [id number] 18 [id number] Medicaid-Pcap Medicaid [id number] Family Dependent [id number] Blue Option Health Maintenance Organization (HMO) [id number] Family Dependent [id number] Medicaid-Pcap Medicaid [id number] Self [id number] MVP Managed Care Health Maintenance Organization (HMO) [id number] Self [id number] [facility] Community Plan Health Maintenance Organization (HMO) [id number] Self [id number] MEDICAID [place] [id number] S [id number] [facility] [place] O [id number] S [id number] Medicaid-Pcap Medicaid [id number] Family Dependent [id number] Blue Option Health Maintenance Organization (HMO) [id number] Family Dependent [id number] Medicaid-Pcap Medicaid [id number] Self [id number] MVP Managed Care Health Maintenance Organization (HMO) [id number] Self [id number] MVP MCDO [id number] SP [id number] Medicaid-Pcap Medicaid [id number] Family Dependent [id number] Hmo Blue Option Health Maintenance Organization (HMO) [id number] Family Dependent [id number] Medicaid-Pcap Medicaid [id number] Self [id number] MEDICAID M [id number] S [id number] Medicaid-Pcap Medicaid [id number] Family Dependent [id number] Hmo Blue Option Health Maintenance Organization (HMO) [id number] Family Dependent [id number] Medicaid-Pcap Medicaid [id number] Self [id number] MEDICAID [id number] SP [id number] MEDICAID [id number] SP [id number] [facility] [place] O [id number] S [id number] [facility] [place] O [id number] S [id number] [facility] [place] O [id number] S [id number] [facility] [place] O [id number] S [id number] [facility] [place] O [id number] S [id number] [id number] SP [id number] Medicaid-Pcap Medicaid Family Dependent Hmo Blue Option Health Maintenance Organization (HMO) Family Dependent [facility] Community [facility] Health Maintenance Organization (HMO) Family Dependent [facility] Community Plan Medigap Part B [id number] Family Dependen t [id number] Pupil Benefits (pr) [place] Self UHC I [id number] Self [id number] [facility](MCAID) O [id number] S [id number] D Managed Care [facility] O [id number] S [id number] Medicaid Dental S [id number] S [id number] Managed Care [facility] P [id number] S [id number] HMO BLUE [id number] SP [id number] Problems, Conditions, and Diagnoses Code Display Name Description Problem Type Effective Dates Data Source(s) 56884020 Diarrhea Diarrhea Problem 09/27/2019 12:00:00 AM ED T MEDENT ([facility]) [id number] Right lower quadrant pain Right lower quadrant pain Pr oblem 09/27/2019 12:00:00 AM EDT MED[facility] ([facility]) [id number] Irritable bowel syndrome with diarrhea I rritable bowel syndrome with diarrhea Problem 09/02/2019 12:00:00 AM EDT MED[facility] ([facility]) [id number] Posttraumatic stress disorder Posttraumatic stress dis order Problem 09/02/2019 12:00:00 AM EDT MED[facility] ([facility]) [id number] Mild recurrent major depression Mild recurrent m ajor depression Problem 09/02/2019 12:00:00 AM EDT MED[facility] ([facility]) [id number] Anxiety state Anxiety state Problem 09/02/2019 12:00:00 AM EDT MED[facility] ([facility]) 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 01/25/2020 03:16:00 PM [facility] F419 Anxiety disorder, unspecified Anxiety disorder, unspec ified Diagnosis 01/25/2020 03:16:00 PM [facility] F330 Major depressive disorder, recurrent, mi ld Major depressive disorder, recurrent, mild Diagnosis 01/25/2020 03:16:00 PM [facility] K20.9 Esophagitis, unspecified ESOPHAGITIS, UNSPECIFIED Diag nosis [facility]ED IRRITABLE BOWEL SYNDROME MIXED IRRITABLE BOWEL S YNDROME Diagnosis 11/26/2019 09:36:00 AM [facility] Z32.00 Encounter for test, result unk nown ENCOUNTER FOR TEST, RESULT UNK Diagnosis 11/26/2019 09:36:00 AM EDT [facility] R10.9 Unspecified abdominal pain UNSPECIFIED ABDOMINAL PAIN Diagnosis [facility] Right lower quadrant pain RIGHT LOWER QUADRANT PAIN Di agnosis 11/26/2019 09:36:00 AM [facility] Z20.828 Contact with and (suspected) exposure to other viral communicable diseases CONTACT W AND EXPOSURE TO OTH VIRAL COMMUNICABLE D Diagnosis 11/23/2019 07:08:00 AM [facility] Z01.812 Encounter for preprocedural laboratory e xamination ENCOUNTER FOR PREPROCEDURAL LABORATORY EXAMINATION Diagnosis 11/23/2019 07:08:00 AM [facility] R102 Pelvic and perineal pain Pelvic and perineal pain Diag nosis 09/30/2019 08:08:00 AM [facility] R1031 Right lower quadrant pain Right lower quadrant pain Di agnosis 09/30/2019 08:08:00 AM [facility] K580 Irritable bowel syndrome with diarrhea I rritable bowel syndrome with diarrhea Diagnosis 09/27/2019 02:16:00 PM [facility] F4312 Post-traumatic stress disorder, chronic Post-traumatic stress disorder, chronic Diagnosis 09/02/2019 08:18:00 AM [facility] G4700 Insomnia, unspecified Insomnia, unspecified Diagnosis 09/02/2019 08:18:00 AM [facility] Z0001 Encounter for general adult medical exam ination with abnormal findings Encounter for general adult medical examination with abnormal findings Diagnosis 09/02/2019 08:18:00 AM [facility] Surgeries/Procedures Procedure Description Date Indications Data Source(s) RADEX SHOULDER COMPLETE MINIMUM 2 VIEWS 02/28/2020 12: 00:00 AM EST MEDENT ([facility] ) Brief Emotional/Behav Assessment W/ Scoring Doc Per Standard Inst 09/02/2019 12:00:00 AM EDT MEDENT ([facility]) Admin Patient Focused Health Risk Assessment Instrument 09/02/2019 12:00:00 AM EDT MED[facility] ([facility]) Results ID Date Data Source [id number] 01/15/2020 04:43:00 PM EDT MED[facility] ([facility]) Name Value Range Interpretation Code Description Data Melina rce(s) Supporting Document(s) Throat Culture Laboratory test result MED[facility] ([facility]) FULL REPORT IN LAB NOTES (eCW and Medent ). NORMAL POONAM PRESENT ID Date Data Source [id number] 01/14/2020 07:31:00 PM EDT [facility] ([facility]) Name Value Range Interpretation Code Description Data Melina rce(s) Supporting Document(s) Bacteria identified in Throat by Culture Laboratory test result [facility] ([facility]) ID Date Data Source [id number] 11/26/2019 11:00:00 AM EDT MED[facility] ([facility]) Name Value Range Interpretation Code Description Data Melina rce(s) Supporting Document(s) Laboratory test finding (navigational concept) Laboratory test result MED[facility] ([facility]) A. TERMINAL ILEUM, BIOPSY: Laboratory test finding (navigational concept) Laboratory test result [facility] ([facility]) - NO SPRUE-LIKE FEATURES PRESENT Laboratory test finding (navigational concept) Laboratory test result [facility] ([facility]) - ILEAL MUCOSA WITH ADEQUATE VILLOUS ARC HITECTURE AND NO INFLAMMATION Laboratory test finding (navigational concept) Laboratory test result [facility] ([facility]) B. RANDOM COLON BIOPSIES: Laboratory test finding (navigational concept) Laboratory test result [facility] ([facility]) GRANULOMAS NOR DYSPLASIA Laboratory test finding (navigational concept) Laboratory test result [facility] ([facility]) -COLONIC MUCOSA WITH NO LYMPHOCYTIC/AYESHA AGENOUS COLITIS, ACUTE INFLAMMATORY ACTIVITY, Laboratory test finding (navigational concept) Laboratory test result [facility] ([facility]) C. BIOPSY OF DISTAL ESOPHAGUS: Laboratory test finding (navigational concept) Laboratory test result [facility] ([facility]) -SQUAMOUS MUCOSA AND GASTRIC MUCOSA OF C ARDIAC TYPE WITH MILD CHRONIC GASTRITIS Laboratory test finding (navigational concept) Laboratory test result [facility] ([facility]) D. DUODENAL BIOPSY: Laboratory test finding (navigational concept) Laboratory test result [facility] ([facility]) Laboratory test finding (navigational concept) Laboratory test result [facility] ([facility]) -NO INTESTINAL METAPLASIA NOR DYSPLASIA IS SEEN Laboratory test finding (navigational concept) Laboratory test result [facility] ([facility]) -NO SPRUE-LIKE FEATURES PRESENT Laboratory test finding (navigational concept) Laboratory test result [facility] ([facility]) -DUODENAL MUCOSA WITH ADEQUATE VILLOUS A RCHITECTURE AND NO INCREASED INTRAEPITHELIAL Laboratory test finding (navigational concept) Laboratory test result [facility] ([facility]) Laboratory test finding (navigational concept) Laboratory test result [facility] ([facility]) Laboratory test finding (navigational concept) Laboratory test result [facility] ([facility]) Laboratory test finding (navigational concept) Laboratory test result [facility] ([facility]) Laboratory test finding (navigational concept) Laboratory test result [facility] ([facility]) Laboratory test finding (navigational concept) Laboratory test result [facility] ([facility]) is the following biopsy specimen: Laboratory test finding (navigational concept) Laboratory test result [facility] ([facility]) A. Received in formalin, labeled with p marcus patient identification and biopsy antrum Laboratory test finding (navigational concept) Laboratory test result [facility] ([facility]) Number of pieces/color/size: 1, pedroza, 0.5 cm Laboratory test finding (navigational concept) Laboratory test result [facility] ([facility]) All processed in one cassette. Laboratory test finding (navigational concept) Laboratory test result [facility] ([facility]) is the following biopsy specimen: Laboratory test finding (navigational concept) Laboratory test result [facility] ([facility]) B. Received in formalin, labeled with p marcus patient identification and biopsy body Laboratory test finding (navigational concept) Laboratory test result [facility] ([facility]) Number of pieces/color/size: 1, pedroza, 0.6 cm Laboratory test finding (navigational concept) Laboratory test result [facility] ([facility]) esophagus is the following biopsy speci men: Laboratory test finding (navigational concept) Laboratory test result [facility] ([facility]) C. Received in formalin, labeled with p marcus patient identification and biopsy distal Laboratory test finding (navigational concept) Laboratory test result [facility] ([facility]) All processed in one cassette. Laboratory test finding (navigational concept) Laboratory test result [facility] ([facility]) All processed in one cassette. Laboratory test finding (navigational concept) Laboratory test result [facility] ([facility]) D. Received in formalin, labeled with p marcus patient identification and biopsy duodenum Laboratory test finding (navigational concept) Laboratory test result [facility] ([facility]) Number of pieces/color/size: 1, pedroza, 0.2 cm Laboratory test finding (navigational concept) Laboratory test result [facility] ([facility]) All processed in one cassette. Laboratory test finding (navigational concept) Laboratory test result [facility] ([facility]) is the following biopsy specimen: Laboratory test finding (navigational concept) Laboratory test result [facility] ([facility]) <content>Number of pieces/color/size: 2, pedroza, 0.4cm & 0.5cm</content>
<content></content> Laboratory test finding (navigational concept) Laboratory test result [facility] ([facility]) Laboratory test finding (navigational concept) Laboratory test result [facility] ([facility]) REPORT SIGNED: Pauline Neville 11/10 Laboratory test finding (navigational concept) Laboratory test result [facility] ([facility]) Slides reviewed. Diagnosis supported by microscopic examination. Laboratory test finding (navigational concept) Laboratory test result [facility] ([facility]) A. Received in formalin, labeled with pr oper patient identification and biopsy terminal Laboratory test finding (navigational concept) Laboratory test result [facility] ([facility]) ileum is the following biopsy specimen: Laboratory test finding (navigational concept) Laboratory test result [facility] ([facility]) Number of pieces/color/size: 4, pedroza, 0.1 -0.9cm Laboratory test finding (navigational concept) Laboratory test result [facility] ([facility]) All processed in one cassette. Laboratory test finding (navigational concept) Laboratory test result [facility] ([facility]) B. Received in formalin, labeled with pr oper patient identification and random colon Laboratory test finding (navigational concept) Laboratory test result [facility] ([facility]) Number of pieces/color/size: multiple, t an, 0.1-0.4cm Laboratory test finding (navigational concept) Laboratory test result [facility] ([facility]) All processed in one cassette. Laboratory test finding (navigational concept) Laboratory test result [facility] ([facility]) biopsies is the following biopsy specim en: Laboratory test finding (navigational concept) Laboratory test result [facility] ([facility]) REPORT SIGNED: KelinPauline 11/22 Laboratory test finding (navigational concept) Laboratory test result [facility] ([facility]) Laboratory test finding (navigational concept) Laboratory test result [facility] ([facility]) Slides reviewed. Diagnosis supported by microscopic examination. ID Date Data Source [id number] 12/02/2019 12:38:00 PM EDT [facility]c: Kallie Arana () A. TERMINAL ILEUM, BIOPSY: - ILEAL MUCOSA WITH ADEQUATE VILLOUS ARCHITECTURE AND NO INFLAMMATION - NO SPRUE-LIKE FEATURES PRESENT B. RANDOM COLON BIOPSIES: -COLONIC MUCOSA WITH NO LYMPHOCYTIC/COLLAGENOUS COLITIS, ACUTE INFLAMMATORY ACTIVITY,GRANULOMAS NOR DYSPLASIA CODE/S:97962 X2 .A. Received in formalin, labeled with proper patient identification and "biopsy terminalileum" is the following biopsy specimen:Number of pieces/color/size: 4, pedroza, 0.1-0.9cmAll processed in one cassette. B. Received in formalin, labeled with proper patient identification and "random colonbiopsies" is the following biopsy specimen:Number of pieces/color/size: multiple, pedroza, 0.1-0.4cmAll processed in one cassette. Abdominal pain. Slides reviewed. Diagnosis supported by microscopic examination. REPORT SIGNED: Pauline Neville DO 12/02/19 Name Value Range Interpretation Code Description Data Melina rce(s) Supporting Document(s) ID Date Data Source [id number] 11/30/2019 04:11:00 PM EDT [facility]: Kallie Arana () A. BIOPSY OF ANTRUM: - ANTRAL MUCOSA WITH NO SIGNIFICANT PATHOLOGIC ABNORMALITIES - NO H. PYLORI SEEN ON H & E STAIN B. BIOPSY OF FUNDUS/BODY: - FUNDIC MUCOSA WITH NO SIGNIFICANT PATHOLOGIC ABNORMALITIES - NO H. PYLORI SEEN ON H & E STAIN C. BIOPSY OF DISTAL ESOPHAGUS: -SQUAMOUS MUCOSA AND GASTRIC MUCOSA OF CARDIAC TYPE WITH MILD CHRONIC GASTRITIS -NO INTESTINAL METAPLASIA NOR DYSPLASIA IS SEEN D. DUODENAL BIOPSY: -DUODENAL MUCOSA WITH ADEQUATE VILLOUS ARCHITECTURE AND NO INCREASED INTRAEPITHELIALLYMPHOCYTES -NO SPRUE-LIKE FEATURES PRESENT CODE/S:35443 X4 .A. Received in formalin, labeled with proper patient identification and "biopsy antrum"is the following biopsy specimen:Number of pieces/color/size: 1, pedroza, 0.5cmAll processed in one cassette. B. Received in formalin, labeled with proper patient identification and "biopsy body"is the following biopsy specimen:Number of pieces/color/size: 1, pedroza, 0.6cmAll processed in one cassette. C. Received in formalin, labeled with proper patient identification and "biopsy distalesophagus" is the following biopsy specimen:Number of pieces/color/size: 1, pedroza, 0.2cmAll processed in one cassette. D. Received in formalin, labeled with proper patient identification and "biopsy duodenum"is the following biopsy specimen:Number of pieces/color/size: 2, pedroza, 0.4cm & 0.5cmAll processed in one cassette. Abdominal pain. Slides reviewed. Diagnosis supported by microscopic examination. REPORT SIGNED: Pauline Neville DO 11/30/19 Name Value Range Interpretation Code Description Data Melina rce(s) Supporting Document(s) ID Date Data Source [id number] 11/26/2019 09:59:00 AM EDT [facility] Name Value Range Interpretation Code Description Data Melina rce(s) Supporting Document(s) HCG QUAL URINE Negative Negative N [facility] ID Date Data Source [id number] 11/23/2019 07:00:00 AM EDT [facility] ([facility]) Name Value Range Interpretation Code Description Data Melina rce(s) Supporting Document(s) Laboratory test finding (navigational concept) Laboratory test r esult Normal (applies to non-numeric results) [facility] This nucleic acid amplification test was developed and its perfomance characteristics determined by [employer]. Nucleic acid amplification tests include PCR and [...] this assay. Methodology: Nucleic Acid Amplification (RADHA) ID Date Data Source [id number] 11/23/2019 07:00:00 AM EDT [facility] Name Value Range Interpretation Code Description Data Melina rce(s) Supporting Document(s) SARS coronavirus 2 RNA [facility] This lab was ordered by [facility] and reported by [facility]. ID Date Data Source [id number] 11/24/2019 03:10:00 PM EDT [facility]ney Performed at: - [facility] [place] [id number] Director: Savannah Meneses MD, Phone: [phone] Name Value Range Interpretation Code Description Data Melina rce(s) Supporting Document(s) SARS-CoV-2, RADHA Not Detected Not Detected N [facility] This nucleic acid amplification test was developed and itsperfomance characteristics [facility] by [facility]. Nucleic acid amplification tests include PCRand TMA. This test has not been FDA cleared or approved.This test has been authorized by FDA under an Emergency UseAuthorization (EUA). This test is only authorized forthe duration of time the declaration that circumstancesexist justifying the authorization of the emergency use ofin vitro diagnostic tests for detection of SARS-CoV-2 virusand/or diagnosis of COVID-19 infection under sitgrfd058(b)(1) of the Act, 21 U.S.C. 360bbb-3(b) (1), unless theauthorization is terminated or revoked sooner.When diagnostic testing is negative, the possibility of afalse negative result should be considered in the contextof a patient's recent exposures and the presence ofclinical signs and symptoms consistent with COVID-19. Anindividual without symptoms of COVID-19 and who is notshedding SARS-CoV-2 virus would expect to have a negative(not detected) result in this assay.Methodology: Nucleic Acid Amplification (RADHA) ID Date Data Source [id number] 10/01/2019 10:06:00 AM EDT [facility] [address] [place] [address] PHONE: [phone] FAX: [phone] Name .................. : [place] Acct Number.................. : [id number] ROOM. ................. : Number ................... : [id number] Stay type ............. : O/P Discharge Date......... ... : 09/30/19 Admit Date ....... .. : 09/30/19 Admit Phys .................... : MANDI REEVES Date of ....... : 2000 Family Phys ................... : PRADEEP CHAMBERS Phone .................. : [phone] Age ................................ : 19 Film# .................. .:[id number] Sex ................................. : F Unsigned transcriptions are preliminary reports and do not represent a medical or legal document [facility] [id number] COMPLETE:09/30/19 09:25 [facility] [id number] (REASON FOR PELVIS: RLQ PAIN, PELVIC AND PERINEAL PAIN TRANSABDOMINAL PELVIC ULTRASOUND: INDICATION: Right lower quadrant pain and pelvic and perineal pain. FINDINGS: The uterus measures 4.5 x 7.7 x 3.1 cm on this examination. The endometrial stripe measures 4 mm in thickness on this examination. The right ovary is sonographically normal. The left ovary is not visualized. IMPRESSION: The left ovary is not visualized. Please see separate transvaginal pelvic ultrasound for further evaluation. This examination is otherwise normal. Electronically Reviewed and Signed By Chad Garvin M.D. , 10/01/19 10:06, JOS[facility]UEL Transcribe Initials: LUC , Transcribe Date: 10/01/19 01:46, Dictation Date: Copy for: [address] [place] [address] Page 1 of 1 Name Value Range Interpretation Code Description Data Melina rce(s) Supporting Document(s) ID Date Data Source [id number] 10/01/2019 10:05:00 [place] [address] PHONE: [phone] FAX: [phone] Name .................. : LOUIS Jurado Acct Number.................. : [id number] ROOM. ................. : MR Number ................... : [id number] Stay type ............. : O/P Discharge Date......... ... : 09/30/19 Admit Date ....... .. : 09/30/19 Admit Phys .................... : MANDI REEVES Date of ....... : 2000 Family Phys ................... : PRADEEP CHAMBERS Phone .................. : [phone] Age ................................ : 19 Film# .................. .:[id number] Sex ................................. : F Unsigned transcriptions are preliminary reports and do not represent a medical or legal document [facility](NON OB) [id number] COMPLETE:09/30/19 09:25 [facility] [id number] (REASON FOR OBS: Pelvic pain TRANSVAGINAL PELVIC ULTRASOUND: INDICATION: Pelvic pain. FINDINGS: The uterus measures 6.0 x 2.2 x 3.5 cm. The endometrial stripe measures 2 mm in thickness. The bilateral ovaries are sonographically normal. IMPRESSION: Normal transvaginal pelvic ultrasound. Electronically Reviewed and Signed By Chad Garvin M.D. , 10/01/19 10:05, [facility] Transcribe In itials: DZ , Transcribe Date: 10/01/19 01:44, Dictation Date: Copy for: [address] [place] [address] REC Page 1 of 1 Name Value Range Interpretation Code Description Data Melina rce(s) Supporting Document(s) ID Date Data Source [id number] 10/01/2019 10:05:00 AM EDT [facility] [address] [place] [address] PHONE: [phone] FAX: [phone] Name .................. : LOUIS Jurado Acct Number.................. : [id number] ROOM. ................. : Number ................... : [id number] Stay type ............. : O/P Discharge Date......... ... : 09/30/19 Admit Date ....... .. : 09/30/19 Admit Phys .................... : MANDI REEVES Date of ....... : 2000 Family Phys ................... : PRADEEP STEP Phone .................. : [phone] Age ................................ : 19 Film# .................. .:[id number] Sex ................................. : F Unsigned transcriptions are preliminary reports and do not represent a medical or legal document [facility] ABD COMPLETE [id number] COMPLETE:09/30/19 09:25 [place] [id number] (REASON FOR ABDOMEN: Abdominal pain,R/O appendicitis, GB COMPLETE ABDOMINAL ULTRASOUND: INDICATION: Abdominal pain. Rule out appendicitis rule out gallbladder. FINDINGS: There is normal sonographic evidence of the liver, spleen, pancreas and bilateral kidneys. No gallbladder wall thickening or gallstones. The common bile duct measures 3 mm in diameter. The appendix is not visualized and this examination should be considered nondiagnostic for the evaluation of appendicitis. The aorta is normal in caliber. IMPRESSION: Normal complete abdominal ultrasound. This examination is nondiagnostic for the evaluation of appendicitis. Electronically Reviewed and Signed By Chad Garvin M.D. , 10/01/19 10:05, JOS[facility] MAN[facility]EL Transcribe Initials: LUC , Transcribe Date: 10/01/19 01:33, Dictation Date: Copy for: 710 MED REC Page 1 of 1 Name Value Range Interpretation Code Description Data Melina rce(s) Supporting Document(s) ID Date Data Source [id number] 09/28/2019 08:11:00 AM EDT [facility] ([facility]) Name Value Range Interpretation Code Description Data Melina rce(s) Supporting Document(s) Blood Urea Nitrogen 11 mg/dL 7-18 Normal (applies to non-nume arben results) [facility] ([facility]) Glucose, Fasting 89 mg/dL 70-100 Normal (applies to non-numeric results) [facility] ([facility]) Sodium Level 140 meq/L 136-145 Normal (applies to non-numeric res ults) [facility] ([facility]) Potassium Serum 4.5 meq/L 3.5-5.1 Normal (applies to non-numeric results) [facility] ([facility]) Creatinine For GFR 0.80 mg/dL 0.55-1.30 Normal (applies to non -numeric results) [facility] ([facility]) Chloride Level 106 meq/L 98-107 Normal (applies to non-numeric r esults) [facility] ([facility]) Carbon Dioxide Level 23 meq/L 21-32 Normal (applies to non-num tawanda results) [facility] ([facility]) Anion Gap 11 meq/L 8-16 Normal (applies to non-numeric resul ts) [facility] ([facility]) Calcium Level 9.2 mg/dL 8.5-10.1 Normal (applies to non-numeric re sults) [facility] ([facility]) Alt/SGPT 28 U/L 12-78 Normal (applies to non-numeric resul ts) [facility] ([facility]) Ast/Sgot 17 U/L 7-37 Normal (applies to non-numeric resul ts) [facility] Total Protein 7.0 GM/DL 6.4-8.2 Normal (applies to non-numeric re sults) [facility] ([facility]) Bilirubin,Total 0.3 mg/dL 0.2-1.0 Normal (applies to non-numeric results) [facility] ([facility]) Alkaline Phosphatase 67 U/L 45-117 Normal (applies to non-num tawanda results) [facility] ([facility]) Albumin 3.5 GM/DL 3.2-5.2 Normal (applies to non-numeric resul ts) [facility] ([facility]) Albumin/Globulin Ratio 1.0 1.2-2.2 Below low normal [facility] ([facility]) ID Date Data Source [id number] 09/28/2019 08:11:00 AM EDT [facility] ([facility]) Name Value Range Interpretation Code Description Data Melina rce(s) Supporting Document(s) Red Blood Count 4.81 10 4.00-5.40 Normal (applies to non-numeric results) [facility] ([facility]) White Blood Count 7.2 10 4.0-10.0 Normal (applies to non-numeri c results) [facility] ([facility]) Hematocrit 41.9 % 36.0-47.0 Normal (applies to non-numeric resul ts) [facility] ([facility]) Hemoglobin 13.5 g/dL 12.0-15.5 Normal (applies to non-numeric resul ts) [facility] Mean Corpuscular Volume 87.1 fl 80.0-96.0 Normal ( applies to non-numeric results) [facility] ([facility]) Mean Corpuscular Hemoglobin 28.1 pg 27.0-33.0 Norm al (applies to non-numeric results) [facility] ([facility]) Mean Corpuscular HGB Conc 32.2 g/dL 32.0-36.5 Normal (applies to non-numeric results) [facility] ([facility]) Red Cell Distribution Width 12.7 % 11.5-14.5 Norm al (applies to non-numeric results) [facility] ([facility]) Neutrophils % 61.0 % 36.0-66.0 Normal (applies to non-numeric re sults) [facility] ([facility]) Lymph % 29.8 % 24.0-44.0 Normal (applies to non-numeric resul ts) [facility] ([facility]) Platelet Count, Automated 322 10 150-450 Normal (applies to non-numeric results) [facility] ([facility]) Baso % 0.6 % 0.0-1.0 Normal (applies to non-numeric resul ts) [facility] ([facility]) Eos % 1.9 % 0.0-3.0 Normal (applies to non-numeric resul ts) [facility] ([facility]) [place] % 6.4 % 0.0-5.0 Above high normal [facility] ([facility]) Neutrophils # 4.4 10 1.5-8.5 Normal (applies to non-numeric re sults) [facility] ([facility]) Nucleated Red Blood Cell % 0.0 % 0-0 Normal (applies to n on-numeric results) [facility] ([facility]) Immature Granulocyte % 0.3 % 0-3.0 Normal (applies to non-n umeric results) [facility] ([facility]) Lymph # 2.2 10 1.5-5.0 Normal (applies to non-numeric resul ts) [facility] ([facility]) Eos # 0.1 10 0.0-0.5 Normal (applies to non-numeric resul ts) [facility] ([facility]) [place] # 0.5 10 0.0-0.8 Normal (applies to non-numeric resul ts) [facility] ([facility]) Baso # 0.0 10 0.0-0.2 Normal (applies to non-numeric resul ts) [facility] ([facility]) ID Date Data Source [id number] 09/27/2019 02:49:00 PM EDT [facility] ([facility]) Name Value Range Interpretation Code Description Data Melina rce(s) Supporting Document(s) Laboratory test finding (navigational concept) Laboratory test result [facility] ([facility]) US Abd Complete Laboratory test result [facility] ([facility]) US Gallbladder Laboratory test result [facility] ([facility]) Procedure Social History Code Duration Value Status Description Data Source(s ) Smoking 01/14/2020 12:00:00 AM EDT Patient has never smoked co mpleted Patient has never smoked [facility] Vital Signs ID Date Data Source UNK Name Value Range Interpretation Code Description Data Source(s) Body mass index (BMI) [Ratio] 22.9 kg/m2 22.9 k g/m2 [facility] ([facility] ) Body weight 125.00 [lb_av] 125.00 [lb_av] [facility] ([facility] ) Body height 62 [in_i] 62 [in_i] [facility] ([facility] ) 5'2" Body temperature 97.1 [degF] 97.1 [degF] [facility] ([facility]) Body surface area Derived from formula 1.56 m2 1.56 m2 [facility] ([facility]) Body mass index (BMI) [Ratio] 22.6 kg/m2 22.6 k g/m2 [facility] ([facility]) Body height 62 [in_i] 62 [in_i] [facility] ([facility]) 5'2" Body weight 55.963 kg 55.963 kg [facility] ([facility]) Body weight 123.38 [lb_av] 123.38 [lb_av] [facility] ([facility]) Oxygen saturation in Arterial blood by Pulse oximetry 97 % 97 % [facility] ([facility]) Respiratory rate 16 /min 16 /min [facility] ( [facility]) Body temperature 98.0 [degF] 98.0 [degF] [facility] ([facility]) Heart rate 86 /min 86 /min [facility] ([facility]) Diastolic blood pressure 68 mm[Hg] 68 mm[Hg] [facility] ([facility]) Systolic blood pressure 104 mm[Hg] 104 mm[Hg] M [facility] ([facility]) Body mass index (BMI) [Ratio] 22.9 kg/m2 22.9 k g/m2 [facility] ([facility]) Body height 62 [in_i] 62 [in_i] [facility] ([facility]) 5'2" Body weight 125.00 [lb_av] 125.00 [lb_av] [facility] ([facility], [facility]) Body temperature 98.6 [degF] 98.6 [degF] [facility] ([facility], [facility]) Oxygen saturation in Arterial blood by Pulse oximetry 100 % 100 % [facility] ([facility], [facility]) Respiratory rate 14 /min 14 /min [facility] ( [facility], [facility]) Heart rate 91 /min 91 /min [facility] ([facility], [facility]) Diastolic blood pressure 79 mm[Hg] 79 mm[Hg] [facility] ([facility], [facility]) Systolic blood pressure 118 mm[Hg] 118 mm[Hg] M [facility] ([facility], [facility]) Systolic blood pressure 135 mm[Hg] 135 mm[Hg] M [facility] ([facility], [facility]) Body mass index (BMI) [Ratio] 22.9 kg/m2 22.9 k g/m2 [facility] ([facility], [facility]) Body height 62 [in_i] 62 [in_i] [facility] ([facility], [facility]) 5'2" Body weight 125.00 [lb_av] 125.00 [lb_av] [facility] T ([facility], [facility]) Body temperature 99.1 [degF] 99.1 [degF] [facility] ([facility], [facility]) Oxygen saturation in Arterial blood by Pulse oximetry 98 % 98 % [facility] ([facility], [facility]) Respiratory rate 16 /min 16 /min [facility] ( [facility], [facility]) Heart rate 102 /min 102 /min [facility] ([facility], [facility]) Diastolic blood pressure 82 mm[Hg] 82 mm[Hg] [facility] ([facility], [facility]) Body surface area Derived from formula 1.60 m2 1.60 m2 [facility] ([facility]) Body mass index (BMI) [Ratio] 24.1 kg/m2 24.1 k g/m2 [facility] ([facility]) Body height 62 [in_i] 62 [in_i] [facility] ([facility]) 5'2" Body weight 59.875 kg 59.875 kg [facility] ([facility]) Body weight 132.00 [lb_av] 132.00 [lb_av] [facility] ([facility]) Oxygen saturation in Arterial blood by Pulse oximetry 99 % 99 % [facility] ([facility]) Respiratory rate 18 /min 18 /min [facility] ( [facility]) Body surface area 1.60 m2 1.60 m2 [facility] ([facility]) Body temperature 98.4 [degF] 98.4 [degF] [facility] ([facility]) Heart rate 90 /min 90 /min [facility] ([facility]) Diastolic blood pressure 82 mm[Hg] 82 mm[Hg] [facility] ([facility]) Systolic blood pressure 128 mm[Hg] 128 mm[Hg] M [facility] ([facility]) Body surface area Derived from formula 1.60 m2 1.60 m2 [facility] ([facility]) Body mass index (BMI) [Ratio] 24.1 kg/m2 24.1 k g/m2 [facility] ([facility]) Body height 62 [in_i] 62 [in_i] [facility] ([facility]) 5'2" Body weight 59.875 kg 59.875 kg [facility] ([facility]) Body weight 132.00 [lb_av] 132.00 [lb_av] [facility] ([facility]) Oxygen saturation in Arterial blood by Pulse oximetry 98 % 98 % [facility] ([facility]) Respiratory rate 18 /min 18 /min [facility] ( [facility]) Body temperature 98.2 [degF] 98.2 [degF] [facility] ([facility]) Heart rate 90 /min 90 /min [facility] ([facility]) Diastolic blood pressure 70 mm[Hg] 70 mm[Hg] [facility] ([facility]) Systolic blood pressure 126 mm[Hg] 126 mm[Hg] M [facility] ([facility]) Body surface area 1.60 m2 1.60 m2 [facility] ([facility]) Body mass index (BMI) [Ratio] 21.0 kg/m2 21.0 k g/m2 [facility] ([facility], [facility]) Body height 62 [in_i] 62 [in_i] [facility] ([facility], [facility]) 5'2" Body weight 115.00 [lb_av] 115.00 [lb_av] [facility] ([facility], [facility]) Body temperature 97.8 [degF] 97.8 [degF] [facility] ([facility], [facility]) Oxygen saturation in Arterial blood by Pulse oximetry 100 % 100 % [facility] ([facility], [facility]) Respiratory rate 16 /min 16 /min [facility] ( [facility], [facility]) Heart rate 89 /min 89 /min [facility] ([facility]) Diastolic blood pressure 72 mm[Hg] 72 mm[Hg] [facility] ([facility], [facility]) Systolic blood pressure 111 mm[Hg] 111 mm[Hg] [facility] ([facility], [facility])
--- OUTSIDE RECORDS SUMMARY | 2020-04-05 21:08 | CCD ---
Author Author [facility] Organization [facility] Address Unknown Phone Unavailable Care Team Providers Care Computer Systems Administrator Name Role Phone Sandra FARAH MD Unavailable [...] Unavailable Unavailable Sandra FARAH MD Unavailable Unavailable Sandar FARAH MD Unavailable Unavailable Sandra FARAH MD Unavailable Unavailable BRAYNT FERNÁNDEZ MD Unavailable Unavailable BRYANT FERNÁNDEZ MD [...] FERNÁNDEZBRYANT Jurado MD Unavailable Unavailable OKHMAN, DIXIE [employer] Unavailable Unavailable OKHMAN, DIXIE [employer] Unavailable Unavailable OKHMAN, DIXIE [employer] Unavailable Unavailable OKHMAN, DIXIE [employer] Unavailable Unavailable OKHMAN, DIXIE [employer] Unavailable Unavailable OKHMAN, DIXIE [employer] Unavailable Unavailable OKHMAN, DIXIE [employer] Unavailable Unavailable OKHMAN, DIXIE [employer] Unavailable Unavailable OKHMAN, DIXIE [employer] Unavailable Unavailable OKHMAN, DIXIE [employer] Unavailable Unavailable OKHMAN, DIXIE [employer] Unavailable Unavailable OKHMAN, DIXIE [employer] Unavailable Unavailable OKHMAN, DIXIE [employer] Unavailable Unavailable OKHMAN, DIXIE [employer] Unavailable Unavailable OKHMAN, DIXIE [employer] Unavailable Unavailable OKHMAN, DIXIE [employer] Unavailable Unavailable OKHMAN, DIXIE [employer] Unavailable Unavailable OKHMAN, DIXIE [employer] Unavailable Unavailable OKHMAN, DIXIE [employer] Unavailable Unavailable OKHMAN, DIXIE [employer] Unavailable Unavailable OKHMAN, DIXIE [employer] Unavailable Unavailable OKHMAN, DIXIE [employer] Unavailable Unavailable OKHMAN, DIXIE [employer] Unavailable Unavailable OKHMAN, DIXIE [employer] Unavailable Unavailable OKHMAN, DIXIE [employer] Unavailable Unavailable OKHMAN, DIXIE [employer] Unavailable Unavailable OKHMAN, DIXIE [employer] Unavailable Unavailable OKHMAN, DIXIE [employer] Unavailable Unavailable OKHMAN, DIXIE [employer] Unavailable Unavailable OKHMAN, DIXIE [employer] Unavailable Unavailable OKHMAN, DIXIE [employer] Unavailable Unavailable OKHMAN, DIXIE [employer] Unavailable Unavailable OKHMAN, DIXIE [employer] Unavailable Unavailable OKHMAN, DIXIE [employer] Unavailable Unavailable OKHMAN, D[employer] Unavailable Unavailable OKHMAN, [employer] Unavailable Unavailable Dunham, M Barratt PA Unavailable [...] Unavailable Mandi, Katarina Kallie ANP-BC Unavailable Unavailable Manid, Katarina Kallie ANP-BC Unavailable Unavailable Mandi, Katarina Kallie ANP-BC Unavailable Unavailable Mandi, Katarina Kallie ANP-BC Unavailable Unavailable Mandi, Katarina Kallie ANP-BC Unavailable Unavailable Mandi, Katarina Kallie ANP-BC Unavailable Unavailable Mandi, Katarina Kallie ANP-BC Unavailable Unavailable Mandi, Katarina Kallie ANP-BC Unavailable Unavailable Mandi, Katarina Klalie ANP-BC Unavailable Unavailable Mandi, Katarina Kallie ANP-BC [...] Katarina Kallie ANP-BC Unavailable Unavailable Gore, Mei [employer] Unavailable Unavailable Gore, Mei [employer] Unavailable Unavailable Gore, Mei [employer] Unavailable Unavailable Gore, Mei [employer] Unavailable Unavailable Gore, Mei [employer] Unavailable Unavailable Gore, Mei [employer] Unavailable Unavailable Gore, Mei [employer] Unavailable Unavailable Gore, Mei [employer] Unavailable Unavailable Gore, Mei [employer] Unavailable Unavailable Gore, Mei [employer] Unavailable Unavailable Gore, Mei [employer] Unavailable Unavailable Mandi, Katarina Kallie ANP-BC Unavailable [...] is protected by Article 27-F of the [facility] Public Health law. If you continue you may have access to information: Regarding HIV / AIDS; Provided by facilities licensed or operated by the [facility] Office of Mental Health; or Provided by the [facility] Office for People With Developmental Disabilities. If such information is present, then the following [facility] mandated warning applies: This information has [...] law may result in a fine or fdc sentence or both. A general authorization for the release of medical or other information is NOT sufficient authorization for further disc losure. Allergies and Adverse Reactions Type Description Substance Reaction Status Data Source(s ) Drug allergy No Known Drug Allergies No Known Drug Allergies [facility] Drug allergy No Known Allergies No Known Allergies [facility] Drug Class NO KNOWN ALLERGIES NO KNOWN ALLERGIES [facility] Family History Family Member Name Family Member Gender Family Member Status Date o f Status Description Data Source(s) Unknown Male Problem [facility] ([facility]) Unknown Unknown Problem [facility] ([facility] Unknown Unknown Problem [facility] ([facility] Unknown Female Problem [facility] ([facility]) Encounters Encounter Providers Location Date Indications Data Source(s ) Outpatient Attender: Kallie OVALLEBCConsultant: BRYANT FERNÁNDEZ MD 03/31/2020 02:08:35 PM [facility] Outpatient Attender: Brenda NEGRETE Physical Therapy 12:30:00 PM EST MED[facility] ([facility]) Outpatient Attender: Brenda NEGRETE [facility] 08:00:00 AM EST [facility] ([facility]) Outpatient Attender: Kallie WILLISonsultant: BRYANT FERNÁNDEZ MD 01/25/2020 03:16:00 PM EST - 01/25/2020 03:16:00 PM [facility] Outpatient Attender: Mei aguedlo 01/14/2020 07:10:00 PM EDT [facility] ([facility] [address] [address] 12/06/2019 12:00:00 AM EDT eCW1 ([facility]) Outpatient Attender: LEIDY FARAH MD ER-ASUR 11/26/2019 09:36:00 AM EDT [facility] Admission cancelled. Disregard status an d admitted date. Outpatient Attender: LEIDY FARAH MD ER-LAB 11/23/2019 07:08:00 AM EDT [facility] Outpatient Attender: Kallie OVALLEBCConsultant: BRYANT FERNÁNDEZ MD 09/30/2019 08:08:00 AM EDT - 09/30/2019 09:08:00 AM EDT [facility] Patient discharged. Outpatient Attender: Kallie ULLOA [facility] 08/2019 02:20:00 PM EDT [facility] Outpatient Attender: Kallie OVALLEBCConsultant: BRYANT FERNÁNDEZ MD 09/27/2019 02:16:00 PM EDT - 09/27/2019 02:16:00 PM EDT [facility] Outpatient Attender: Kallie [facility] 08/22 08:20:00 AM EDT [facility] ([facility]) Outpatient Attender: Kallie OVALLEBCConsultant: BRYANT FERNÁNDEZ MD 09/02/2019 08:18:00 AM EDT - 09/02/2019 08:18:00 AM EDT [facility] Outpatient Attender: Citlaly BLACK 08/31/2019 07:26:19 P M EDT [facility] Outpatient Attender: DIXIE BAGLEY NPReferrer: BRYANT FERNÁNDEZ MD 08/09/2019 12:00:00 AM [facility] Outpatient Attender: Citlaly BLACK 06/03/2019 09:01:00 P M EDT [facility] Outpatient Attender: JAYLA burns 03/09/2019 04:10:00 PM EST MED[facility] ([facility]) Medications Medication Brand Name Start Date Product Form Dose Route Admi nistrative Instructions Pharmacy Instructions Status Indications Reaction Description Data Source(s) Paroxetine HCL Paroxetine HCL 01/25/2020 12:00:00 AM EST ORAL active MED[facility] ([facility]) Prednisone 20 MG Oral Tablet Prednisone 01/15/2020 12:00:00 AM EDT completed [facility] ([facility]) Prednisone 20 MG Oral Tablet Prednisone 01/14/2020 12:00:00 AM EDT active [facility] ([facility]) Metronidazole 500 MG Oral Tablet Metronidazole 12/01/2019 12:00:00 AM EDT completed [facility] ([facility]) Mirtazapine 7.5 MG Oral Tablet Mirtazapine 09/02/2019 12:00:00 AM EDT ORAL completed [facility] ([facility]) Amoxicillin 875 MG Oral Tablet Amoxicillin 03/09/2019 12:00:00 AM EST ORAL active [facility] ([facility]) Naproxen 375 MG Oral Tablet Naproxen 10/07/2018 12:00:00 AM EDT ORAL completed [facility] ([facility] Insurance Providers Payer name Policy type / Coverage type Policy ID Covered libertarian ID Covered libertarian's relationship to mcbride Policy Mcbride Plan Information EMEDNY [id number] SP [id number] [facility]AN [facility] [id number] SP [id number] [facility] COMMUNITY PLAN [facility] [id number] SP [id number] MEDICAID -RECURRING [id number] [facility] COMMUNTY PLAN [id number] 18 [id number] [facility] [id number] S [id number] [facility] COMMUNITY [facility] [id number] SP [id number] [facility] AMERICHOICE XIX -[facility] [id number] 18 [id number] [facility] COMMUNITY PLAN XIX [id number] 18 [id number] Managed Care - MVP P UNAVAILABLE S UNAVAILABLE Medicaid S UNAVAILABLE [place] BLE [place] B [id number] Self [id number] [facility] I [id number] Self [id number] MVP H [id number] Self [id number] [facility] Health Maintenance Organization (HMO) [id number] Self [id number] [facility] Communty Plan Medicaid [id number] Self [id number] ANSI-Medicaid [id number] [facility] COMMUNTY PLAN [id number] 18 [id number] [facility] Health Maintenance Organization (HMO) [id number] Self [id number] [facility] Communty Plan Medicaid [id number] Self [id number] [facility] COMMUNITY PLAN XIX [id number] 18 [id number] [facility] Communty Plan Medicaid [id number] Self [id number] ANSI-Medicaid [id number] ANSI-Medicaid [id number] MVP MCDHMO [id number] SP [id number] MVP MCDHMO [id number] SP [id number] MVP MCDHMO [id number] SP [id number] [facility] O [id number] S [id number] MVP/Hmo Health Maintenance Organization (HMO) [id number] Self [id number] MVP/Hmo Health Maintenance Organization (HMO) [id number] Self [id number] [facility] Community Plan Medigap Part B [id number] Self [id number] Guard Ins (WC) Workers Compensation W [id number] Self [id number] Pupil Benefits (pr) Commercial [id number] Family Dependent [id number] Medicaid [place] Medigap Part B [id number] Family Dependent [id number] Medicaid-Pcap Medicaid [id number] Family Dependent [id number] Hmo Blue Option Health Maintenance Organization (HMO) [id number] Family Dependent [id number] Medicaid-Pcap Medicaid [id number] Self [id number]aged [employer] Health Maintenance Organization (HMO) [id number] Self [id number] [employer] Health Maintenance Organization (HMO) [id number] Self [id number] [facility] Community Plan Health Maintenance Organization (HMO) [id number] Self [id number] ANSI-Not a Secondary Insurance [id number] [facility] Plan Medigap Part B [id number] Self [id number] Guard Ins (WC) Workers Compensation TAW [id number] Self [id number] MVP MCDHMO [id number] SP [id number] MVP/Hmo Health Maintenance Organization (HMO) [id number] Self [id number] MVP I [id number] Self [id number] [facility] HEALTHCARE [place] [id number] S [id number] [employer]ARD INSURANCE [id number] S [id number] [facility] [id number] S [id number] ANSI-Not a Secondary Insurance [id number] ANSI-Not a Secondary Insurance [id number] Medicaid-Pcap Medicaid [id number] Family Dependent [id number] H[employer] Option Health Maintenance Organization (HMO) [id number] Family Dependent [id number] Medicaid-Pcap Medicaid [id number] Self [id number] [employer]aged [employer] Health Maintenance Organization (HMO) [id number] Self [id number] Medicaid-Pcap Medicaid [id number] Family Dependent [id number] Hmo Blue Option Health Maintenance Organization (HMO) [id number] Family Dependent [id number] Medicaid-Pcap Medicaid [id number] Self [id number] MVP Managed Care Health Maintenance Organization (HMO) [id number] Self [id number] [facility] HEALTH CARE O [id number] S [id number] Self Pay P [id number] S [id number] MVP H [id number] Self [id number] [facility] I [id number] Self [id number] MVP MEDICAID HMO -O/P [id number] 18 [id number] Medicaid-Pcap Medicaid [id number] Family Dependent [id number] Hmo Blue Option Health Maintenance Organization (HMO) [id number] Family Dependent [id number] Medicaid-Pcap Medicaid [id number] Self [id number] Managed Care Health Maintenance Organization (HMO) [id number] Self [id number] [facility] Community Plan Health Maintenance Organization (HMO) [id number] Self [id number] MEDICAID [place] [id number] S [id number] [facility] O [id number] S [id number] Medicaid-Pcap Medicaid [id number] Family Dependent [id number] Hmo Blue Option Health Maintenance Organization (HMO) [id number] Family Dependent [id number] Medicaid-Pcap Medicaid [id number] Self [id number] [employer]aged [employer] Health Maintenance Organization (HMO) [id number] Self [id number] MVP [id number] [id number] SP [id number] Medicaid-Pcap Medicaid [id number] Family Dependent [id number] H[employer] Health Maintenance Organization (HMO) [id number] Family Dependent [id number] Medicaid-Pcap Medicaid [id number] Self [id number] MEDICAID M [id number] S [id number] Medicaid-Pcap Medicaid [id number] Family Dependent [id number] H[employer] Option Health Maintenance Organization (HMO) [id number] Family Dependent [id number] Medicaid-Pcap Medicaid [id number] Self [id number] MEDICAID [id number] SP [id number] MEDICAID [id number] SP [id number] [facility] O [id number] S [id number] [facility] O [id number] S [id number] [facility] O [id number] S [id number] [facility] O [id number] S [id number] [facility] O [id number] S [id number] Medicaid-Pcap Medicaid Family Dependent Hmo Blue Option Health Maintenance Organization (HMO) Family Dependent [facility] Health Maintenance Organization (HMO) Family Dependent [facility] Community Plan Medigap Part B [id number] Family Dependen t [id number] Pupil Benefits (pr) [place] Self [place] Self UHC I [id number] Self [id number] [facility](MCAID) O [id number] S [id number] D Managed Care [facility] O [id number] S [id number] Medicaid Dental S [id number] S [id number] Managed Care [facility] P [id number] S [id number] HMO BLUE [id number] SP [id number] Problems, Conditions, and Diagnoses Code Display Name Description Problem Type Effective Dates Data Source(s) 15686640 Diarrhea Diarrhea Problem 09/27/2019 12:00:00 AM ED T MEDENT ([facility]) [id number] Right lower quadrant pain Right lower quadrant pain Pr oblem 09/27/2019 12:00:00 AM EDT MED[facility] ([facility]) [id number] Irritable bowel syndrome with diarrhea I rritable bowel syndrome with diarrhea Problem 09/02/2019 12:00:00 AM EDT MED[facility] ([facility]) [id number] Posttraumatic stress disorder Posttraumatic stress dis order Problem 09/02/2019 12:00:00 AM EDT MED[facility] ([facility]) [id number] Mild recurrent major depression Mild recurrent m ajor depression Problem 09/02/2019 12:00:00 AM EDT [facility] ([facility]) [id number] Anxiety state Anxiety state Problem 09/02/2019 12:00:00 AM EDT MED[facility] ([facility]) 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 01/25/2020 03:16:00 PM [facility] F419 Anxiety disorder, unspecified Anxiety disorder, unspec ified Diagnosis 01/25/2020 03:16:00 PM [facility] F330 Major depressive disorder, recurrent, mi ld Major depressive disorder, recurrent, mild Diagnosis 01/25/2020 03:16:00 PM [facility] K20.9 Esophagitis, unspecified ESOPHAGITIS, UNSPECIFIED Diag nosis [facility] MIXED IRRITABLE BOWEL SYNDROME MIXED IRRITABLE BOWEL S YNDROME Diagnosis 11/26/2019 09:36:00 AM [facility] Z32.00 Encounter for test, result unk nown ENCOUNTER FOR TEST, RESULT UNK Diagnosis 11/26/2019 09[facility] Unspecified abdominal pain UNSPECIFIED ABDOMINAL PAIN Diagnosis [facility] R[facility].31 Right lower quadrant pain RIGHT LOWER QUADRANT PAIN Di agnosis 11/26/2019 09:36:00 AM [facility] Z20.828 Contact with and (suspected) exposure to other viral communicable diseases CONTACT W AND EXPOSURE TO OTH VIRAL COMMUNICABLE D Diagnosis 11/23/2019 07:08:00 AM [facility] Z01.812 Encounter for preprocedural laboratory e xamination ENCOUNTER FOR PREPROCEDURAL LABORATORY EXAMINATION Diagnosis 11/23/2019 07:08:00 AM [facility] R102 Pelvic and perineal pain Pelvic and perineal pain Diag nosis 09/30/2019 08:08:[address] [facility] R1031 Right lower quadrant pain Right lower quadrant pain Di agnosis 09/30/2019 08:08:[address] [facility] K580 Irritable bowel syndrome with diarrhea I rritable bowel syndrome with diarrhea Diagnosis 09/27/2019 02:16:[address] [facility] F4312 Post-traumatic stress disorder, chronic Post-traumatic stress disorder, chronic Diagnosis 09/02/2019 08:18:[address] [facility] G4700 Insomnia, unspecified Insomnia, unspecified Diagnosis 09/02/2019 08:18:[address] [facility] Z0001 Encounter for general adult medical exam ination with abnormal findings Encounter for general adult medical examination with abnormal findings Diagnosis 09/02/2019 08:18:[address] [facility] Surgeries/Procedures Procedure Description Date Indications Data Source(s) RADEX SHOULDER COMPLETE MINIMUM 2 VIEWS 02/28/2020 12: 00:00 AM EST MED[facility] ([facility] ) Brief Emotional/Behav Assessment W/ Scoring Doc Per Standard Inst 09/02/2019 12:00:00 AM EDT MED[facility] ([facility]) Admin Patient Focused Health Risk Assessment Instrument 09/02/2019 12:00:00 AM EDT [facility] ([facility]) Results ID Date Data Source [id number] 01/15/2020 04:43:00 PM EDT [facility] ([facility]) Name Value Range Interpretation Code Description Data Melina rce(s) Supporting Document(s) Throat Culture Laboratory test result MED[facility] ([facility]) FULL REPORT IN LAB NOTES (eCW and Medent ). NORMAL POONAM PRESENT ID Date Data Source [id number] 01/14/2020 07:31:00 PM EDT [facility] ([facility]) Name Value Range Interpretation Code Description Data Melina rce(s) Supporting Document(s) Bacteria identified in Throat by Culture Laboratory test result [facility] ([facility]) ID Date Data Source [id number] 11/26/2019 11:00:00 AM EDT [facility] ([facility]) Name Value Range Interpretation Code Description Data Melina rce(s) Supporting Document(s) Laboratory test finding (navigational concept) Laboratory test result [facility] ([facility]) A. TERMINAL ILEUM, BIOPSY: Laboratory test finding (navigational concept) Laboratory test result [facility] ([facility]) - NO SPRUE-LIKE FEATURES PRESENT Laboratory test finding (navigational concept) Laboratory test result [facility] ([facility]) - ILEAL MUCOSA WITH ADEQUATE VILLOUS ARC HITECTURE AND NO INFLAMMATION Laboratory test finding (navigational concept) Laboratory test result [facility] ([facility]) B. RANDOM COLON BIOPSIES: Laboratory test finding (navigational concept) Laboratory test result [facility] ([facility]) GRANULOMAS NOR DYSPLASIA Laboratory test finding (navigational concept) Laboratory test result [facility] ([facility]) -COLONIC MUCOSA WITH NO LYMPHOCYTIC/AYESHA AGENOUS COLITIS, ACUTE INFLAMMATORY ACTIVITY, Laboratory test finding (navigational concept) Laboratory test result [facility] ([facility]) C. BIOPSY OF DISTAL ESOPHAGUS: Laboratory test finding (navigational concept) Laboratory test result [facility] ([facility]) -SQUAMOUS MUCOSA AND GASTRIC MUCOSA OF C ARDIAC TYPE WITH MILD CHRONIC GASTRITIS Laboratory test finding (navigational concept) Laboratory test result [facility] ([facility]) D. DUODENAL BIOPSY: Laboratory test finding (navigational concept) Laboratory test result [facility] ([facility]) Laboratory test finding (navigational concept) Laboratory test result [facility] ([facility]) -NO INTESTINAL METAPLASIA NOR DYSPLASIA IS SEEN Laboratory test finding (navigational concept) Laboratory test result [facility] ([facility]) -NO SPRUE-LIKE FEATURES PRESENT Laboratory test finding (navigational concept) Laboratory test result [facility] ([facility]) -DUODENAL MUCOSA WITH ADEQUATE VILLOUS A RCHITECTURE AND NO INCREASED INTRAEPITHELIAL Laboratory test finding (navigational concept) Laboratory test result [facility] ([facility]) Laboratory test finding (navigational concept) Laboratory test result [facility] ([facility]) Laboratory test finding (navigational concept) Laboratory test result [facility] ([facility]) Laboratory test finding (navigational concept) Laboratory test result [facility] ([facility]) Laboratory test finding (navigational concept) Laboratory test result [facility] ([facility]) Laboratory test finding (navigational concept) Laboratory test result [facility] ([facility]) is the following biopsy specimen: Laboratory test finding (navigational concept) Laboratory test result [facility] ([facility]) A. Received in formalin, labeled with p marcus patient identification and biopsy antrum Laboratory test finding (navigational concept) Laboratory test result [facility] ([facility]) Number of pieces/color/size: 1, pedroza, 0.5 cm Laboratory test finding (navigational concept) Laboratory test result [facility] ([facility]) All processed in one cassette. Laboratory test finding (navigational concept) Laboratory test result [facility] ([facility]) is the following biopsy specimen: Laboratory test finding (navigational concept) Laboratory test result [facility] ([facility]) B. Received in formalin, labeled with p marcus patient identification and biopsy body Laboratory test finding (navigational concept) Laboratory test result [facility] ([facility]) Number of pieces/color/size: 1, pedroza, 0.6 cm Laboratory test finding (navigational concept) Laboratory test result [facility] ([facility]) esophagus is the following biopsy speci men: Laboratory test finding (navigational concept) Laboratory test result [facility] ([facility]) C. Received in formalin, labeled with p marcus patient identification and biopsy distal Laboratory test finding (navigational concept) Laboratory test result [facility] ([facility] [facility]) All processed in one cassette. Laboratory test finding (navigational concept) Laboratory test result [facility] ([facility]) All processed in one cassette. Laboratory test finding (navigational concept) Laboratory test result [facility] ([facility]) D. Received in formalin, labeled with p marcus patient identification and biopsy duodenum Laboratory test finding (navigational concept) Laboratory test result [facility] ([facility]) Number of pieces/color/size: 1, pedroza, 0.2 cm Laboratory test finding (navigational concept) Laboratory test result [facility] ([facility]) All processed in one cassette. Laboratory test finding (navigational concept) Laboratory test result [facility] ([facility]) is the following biopsy specimen: Laboratory test finding (navigational concept) Laboratory test result [facility] ([facility]) <content>Number of pieces/color/size: 2, pedroza, 0.4cm & 0.5cm</content>
<content></content> Laboratory test finding (navigational concept) Laboratory test result [facility] ([facility]) Laboratory test finding (navigational concept) Laboratory test result [facility] ([facility]) REPORT SIGNED: Pauline Neville 11/10 Laboratory test finding (navigational concept) Laboratory test result [facility] ([facility]) Slides reviewed. Diagnosis supported by microscopic examination. Laboratory test finding (navigational concept) Laboratory test result [facility] ([facility]) A. Received in formalin, labeled with pr oper patient identification and biopsy terminal Laboratory test finding (navigational concept) Laboratory test result [facility] ([facility]) ileum is the following biopsy specimen: Laboratory test finding (navigational concept) Laboratory test result [facility] ([facility]) Number of pieces/color/size: 4, pedroza, 0.1 -0.9cm Laboratory test finding (navigational concept) Laboratory test result [facility] ([facility]) All processed in one cassette. Laboratory test finding (navigational concept) Laboratory test result [facility] ([facility]) B. Received in formalin, labeled with pr oper patient identification and random colon Laboratory test finding (navigational concept) Laboratory test result [facility] ([facility]) Number of pieces/color/size: multiple, t an, 0.1-0.4cm Laboratory test finding (navigational concept) Laboratory test result [facility] ([facility]) All processed in one cassette. Laboratory test finding (navigational concept) Laboratory test result [facility] ([facility]) biopsies is the following biopsy specim en: Laboratory test finding (navigational concept) Laboratory test result [facility] ([facility]) REPORT SIGNED: KelinPauline 11/22 Laboratory test finding (navigational concept) Laboratory test result [facility] ([facility]) Laboratory test finding (navigational concept) Laboratory test result [facility] ([facility]) Slides reviewed. Diagnosis supported by microscopic examination. ID Date Data Source [id number] 12/02/2019 12:38:00 PM EDT [facility] Cc: Kallie Arana () A. TERMINAL ILEUM, BIOPSY: - ILEAL MUCOSA WITH ADEQUATE VILLOUS ARCHITECTURE AND NO INFLAMMATION - NO SPRUE-LIKE FEATURES PRESENT B. RANDOM COLON BIOPSIES: -COLONIC MUCOSA WITH NO LYMPHOCYTIC/COLLAGENOUS COLITIS, ACUTE INFLAMMATORY ACTIVITY,GRANULOMAS NOR DYSPLASIA CODE/S:37032 X2 .A. Received in formalin, labeled with [...] rce(s) Supporting Document(s) ID Date Data Source [id number] 11/30/2019 04:11:00 PM EDT [facility] barr Cc: [...] NO INCREASED INTRAEPITHELIALLYMPHOCYTES -NO SPRUE-LIKE FEATURES PRESENT CODE/S:99147 X4 .A. Received in formalin, labeled with [...] rce(s) Supporting Document(s) ID Date Data Source [id number] 11/26/2019 09:59:00 AM EDT [facility] Name Value Range Interpretation Code Description Data Melina rce(s) Supporting Document(s) HCG QUAL URINE Negative Negative [facility] ID Date Data Source [id number] 11/23/2019 07:00:00 AM EDT [facility] ([facility]) Name Value Range Interpretation Code Description Data Melina rce(s) Supporting Document(s) Laboratory test finding (navigational concept) Laboratory test r esult Normal (applies to non-numeric results) [facility] ([facility]) This nucleic acid amplification test was developed and its perfomance characteristics determined by [facility]. Nucleic acid amplification tests include PCR and [...] Acid Amplification (RADHA) ID Date Data Source [id number] 11/23/2019 07:00:00 AM EDT [facility] Name Value Range Interpretation Code Description Data Melina rce(s) Supporting Document(s) SARS coronavirus 2 RNA [facility] This lab was ordered by [facility] and reported by [facility]. ID Date Data Source [id number] 11/24/2019 03:10:00 PM EDT [facility] Performed at: - [facility] [place] [id number] Director: Savannah Meneses MD, Phone: [phone] Name Value Range Interpretation Code Description Data Melina rce(s) Supporting Document(s) SARS-CoV-2, RADHA Not Detected Not Detected N [facility] This nucleic acid amplification test was [...] SARS-CoV-2 virusand/or diagnosis of COVID-19 infection under [id number](b)(1) of the Act, 21 U.S.C. 360bbb-3(b) (1), [...] Acid Amplification (RADHA) ID Date Data Source [id number] 10/01/2019 10:06:00 AM EDT [facility] [address] [place] [address] PHONE: [phone] FAX: [phone] Name .................. : LOUIS Jurado Acct Number.................. : [id number] ROOM. ................. : Number ................... : [id number] Stay type ............. : O/P Discharge Date......... ... : 09/30/19 Admit Date ....... .. : 09/30/19 Admit Phys .................... : MANDI REEVES Date of ....... : 2000 Family Phys ................... : PRADEEP CHAMBERS Phone .................. : [phone] Age ................................ : 19 Film# .................. .:[id number] Sex ................................. : F Unsigned transcriptions are preliminary reports and do not represent a medical or legal document [facility] [id number] COMPLETE:09/30/19 09:25 [facility] [address] (REASON FOR PELVIS: RLQ PAIN, PELVIC AND [...] Date: 10/01/19 01:46, Dictation Date: Copy for: [address] [place] [address] Page 1 of 1 Name Value Range Interpretation Code Description Data Melina rce(s) Supporting Document(s) ID Date Data Source [id number] 10/01/2019 10:05:00 [place] [address] PHONE: [phone] FAX: [phone] Name .................. : LOUIS Jurado Acct Number.................. : [id number] ROOM. ................. : MR Number ................... : [id number] Stay type ............. : O/P Discharge Date......... ... : 09/30/19 Admit Date ....... .. : 09/30/19 Admit Phys .................... : MANDI REEVES Date of ....... : 2000 Family Phys ................... : PRADEEP CHAMBERS Phone .................. : [phone] Age ................................ : 19 Film# .................. .:[id number] Sex ................................. : F Unsigned transcriptions are preliminary reports and do not represent a medical or legal document TRANSVAGINAL(NON OB) [id number] COMPLETE:09/30/19 09:25 [facility] 29472 (REASON FOR OBS: Pelvic pain TRANSVAGINAL PELVIC ULTRASOUND: INDICATION: Pelvic pain. FINDINGS: The uterus measures 6.0 x 2.2 x 3.5 cm. The endometrial stripe measures 2 mm in thickness. The bilateral ovaries are sonographically normal. IMPRESSION: Normal transvaginal pelvic ultrasound. Electronically Reviewed and Signed By Chad Garvin M.D. , 10/01/19 10:05, [facility] Transcribe In itials: DZ , Transcribe Date: 10/01/19 01:44, Dictation Date: Copy for: [address] [place] [address] REC Page 1 of 1 Name Value Range Interpretation Code Description Data Melina rce(s) Supporting Document(s) ID Date Data Source [id number] 10/01/2019 10:05:00 AM EDT [facility] [address] [place] [address] PHONE: [phone] FAX: [phone] Name .................. : LOUIS Jurado Acct Number.................. : [id number] ROOM. ................. : Number ................... : [id number] Stay type ............. : O/P Discharge Date......... ... : 09/30/19 Admit Date ....... .. : 09/30/19 Admit Phys .................... : MANDI REEVES Date of ....... : 2000 Family Phys ................... : PRADEEP STEP Phone .................. : [phone] Age ................................ : 19 Film# .................. .:[id number] Sex ................................. : F Unsigned transcriptions are preliminary reports and do not represent a medical or legal document US ABD COMPLETE [id number] COMPLETE:09/30/19 09:25 [place] [id number] (REASON FOR ABDOMEN: Abdominal pain,R/O appendicitis, GB [...] rce(s) Supporting Document(s) ID Date Data Source [id number] 09/28/2019 08:11:00 AM EDT [facility] ([facility]) Name Value Range Interpretation Code Description Data Melina rce(s) Supporting Document(s) Blood Urea Nitrogen 11 mg/dL 7-18 Normal (applies to non-nume arben results) [facility] ([facility]) Glucose, Fasting 89 mg/dL 70-100 Normal (applies to non-numeric results) [facility] ([facility]) Sodium Level 140 meq/L 136-145 Normal (applies to non-numeric res ults) [facility] ([facility]) Potassium Serum 4.5 meq/L 3.5-5.1 Normal (applies to non-numeric results) [facility] ([facility]) Creatinine For GFR 0.80 mg/dL 0.55-1.30 Normal (applies to non -numeric results) [facility] ([facility]) Chloride Level 106 meq/L 98-107 Normal (applies to non-numeric r esults) [facility] ([facility]) Carbon Dioxide Level 23 meq/L 21-32 Normal (applies to non-num tawanda results) [facility] ([facility]) Anion Gap 11 meq/L 8-16 Normal (applies to non-numeric resul ts) [facility] ([facility]) Calcium Level 9.2 mg/dL 8.5-10.1 Normal (applies to non-numeric re sults) [facility] ([facility]) Alt/SGPT 28 U/L 12-78 Normal (applies to non-numeric resul ts) [facility] ([facility]) Ast/Sgot 17 U/L 7-37 Normal (applies to non-numeric resul ts) [facility] Total Protein 7.0 GM/DL 6.4-8.2 Normal (applies to non-numeric re sults) [facility] ([facility]) Bilirubin,Total 0.3 mg/dL 0.2-1.0 Normal (applies to non-numeric results) [facility] ([facility]) Alkaline Phosphatase 67 U/L 45-117 Normal (applies to non-num tawanda results) [facility] ([facility]) Albumin 3.5 GM/DL 3.2-5.2 Normal (applies to non-numeric resul ts) [facility] ([facility]) Albumin/Globulin Ratio 1.0 1.2-2.2 Below low normal [facility] ([facility]) ID Date Data Source [id number] 09/28/2019 08:11:00 AM EDT [facility] ([facility]) Name Value Range Interpretation Code Description Data Melina rce(s) Supporting Document(s) Red Blood Count 4.81 10 4.00-5.40 Normal (applies to non-numeric results) [facility] ([facility]) White Blood Count 7.2 10 4.0-10.0 Normal (applies to non-numeri c results) [facility] ([facility]) Hematocrit 41.9 % 36.0-47.0 Normal (applies to non-numeric resul ts) [facility] ([facility]) Hemoglobin 13.5 g/dL 12.0-15.5 Normal (applies to non-numeric resul ts) [facility] Mean Corpuscular Volume 87.1 fl 80.0-96.0 Normal ( applies to non-numeric results) [facility] ([facility]) Mean Corpuscular Hemoglobin 28.1 pg 27.0-33.0 Norm al (applies to non-numeric results) [facility] ([facility]) Mean Corpuscular HGB Conc 32.2 g/dL 32.0-36.5 Normal (applies to non-numeric results) [facility] ([facility]) Red Cell Distribution Width 12.7 % 11.5-14.5 Norm al (applies to non-numeric results) [facility] ([facility]) Neutrophils % 61.0 % 36.0-66.0 Normal (applies to non-numeric re sults) [facility] ([facility]) Lymph % 29.8 % 24.0-44.0 Normal (applies to non-numeric resul ts) [facility] ([facility]) Platelet Count, Automated 322 10 150-450 Normal (applies to non-numeric results) [facility] ([facility]) Baso % 0.6 % 0.0-1.0 Normal (applies to non-numeric resul ts) [facility] ([facility]) Eos % 1.9 % 0.0-3.0 Normal (applies to non-numeric resul ts) [facility] ([facility]) [place] % 6.4 % 0.0-5.0 Above high normal [facility] ([facility]) Neutrophils # 4.4 10 1.5-8.5 Normal (applies to non-numeric re sults) [facility] ([facility]) Nucleated Red Blood Cell % 0.0 % 0-0 Normal (applies to n on-numeric results) [facility] ([facility]) Immature Granulocyte % 0.3 % 0-3.0 Normal (applies to non-n umeric results) [facility] ([facility]) Lymph # 2.2 10 1.5-5.0 Normal (applies to non-numeric resul ts) [facility] ([facility]) Eos # 0.1 10 0.0-0.5 Normal (applies to non-numeric resul ts) [facility] ([facility]) [place] # 0.5 10 0.0-0.8 Normal (applies to non-numeric resul ts) [facility] ([facility]) Baso # 0.0 10 0.0-0.2 Normal (applies to non-numeric resul ts) [facility] ([facility]) ID Date Data Source [id number] 09/27/2019 02:49:00 PM EDT [facility] ([facility]) Name Value Range Interpretation Code Description Data Melina rce(s) Supporting Document(s) Laboratory test finding (navigational concept) Laboratory test result [facility] ([facility]) US Abd Complete Laboratory test result [facility] ([facility]) US Gallbladder Laboratory test result [facility] ([facility]) Procedure Social History Code Duration Value Status Description Data Source(s ) Smoking 01/14/2020 12:00:00 AM EDT Patient has never smoked co mpleted Patient has never smoked [facility] Vital Signs ID Date Data Source UNK Name Value Range Interpretation Code Description Data Source(s) Body mass index (BMI) [Ratio] 22.9 kg/m2 22.9 k g/m2 [facility] ([facility] ) Body weight 125.00 [lb_av] 125.00 [lb_av] [facility] T ([facility] ) Body height 62 [in_i] 62 [in_i] [facility] ([facility] ) 5'2" Body temperature 97.1 [degF] 97.1 [degF] [facility] ([facility]) Body surface area Derived from formula 1.56 m2 1.56 m2 [facility] ([facility]) Body mass index (BMI) [Ratio] 22.6 kg/m2 22.6 k g/m2 [facility] ([facility]) Body height 62 [in_i] 62 [in_i] [facility] ([facility]) 5'2" Body weight 55.963 kg 55.963 kg [facility] ([facility]) Body weight 123.38 [lb_av] 123.38 [lb_av] [facility] T ([facility]) Oxygen saturation in Arterial blood by Pulse oximetry 97 % 97 % [facility] ([facility]) Respiratory rate 16 /min 16 /min [facility] ( [facility]) Body temperature 98.0 [degF] 98.0 [degF] [facility] ([facility]) Heart rate 86 /min 86 /min [facility] ([facility]) Diastolic blood pressure 68 mm[Hg] 68 mm[Hg] [facility] ([facility]) Systolic blood pressure 104 mm[Hg] 104 mm[Hg] M [facility] ([facility]) Body mass index (BMI) [Ratio] 22.9 kg/m2 22.9 k g/m2 [facility] ([facility]) Body height 62 [in_i] 62 [in_i] [facility] ([facility]) 5'2" Body weight 125.00 [lb_av] 125.00 [lb_av] [facility] T ([facility]) Body temperature 98.6 [degF] 98.6 [degF] [facility] ([facility]) Oxygen saturation in Arterial blood by Pulse oximetry 100 % 100 % [facility] ([facility]) Respiratory rate 14 /min 14 /min [facility] ( [facility]) Heart rate 91 /min 91 /min [facility] ([facility]) Diastolic blood pressure 79 mm[Hg] 79 mm[Hg] [facility] ([facility]) Systolic blood pressure 118 mm[Hg] 118 mm[Hg] M [facility] ([facility]) Systolic blood pressure 135 mm[Hg] 135 mm[Hg] M [facility] ([facility]) Body mass index (BMI) [Ratio] 22.9 kg/m2 22.9 k g/m2 [facility] ([facility]) Body height 62 [in_i] 62 [in_i] [facility] ([facility]) 5'2" Body weight 125.00 [lb_av] 125.00 [lb_av] [facility] T ([facility]) Body temperature 99.1 [degF] 99.1 [degF] [facility] ([facility]) Oxygen saturation in Arterial blood by Pulse oximetry 98 % 98 % [facility] ([facility]) Respiratory rate 16 /min 16 /min [facility] ( [facility]) Heart rate 102 /min 102 /min [facility] ([facility]) Diastolic blood pressure 82 mm[Hg] 82 mm[Hg] [facility] ([facility]) Body surface area Derived from formula 1.60 m2 1.60 m2 [facility] ([facility]) Body mass index (BMI) [Ratio] 24.1 kg/m2 24.1 k g/m2 [facility] ([facility]) Body height 62 [in_i] 62 [in_i] [facility] ([facility]) 5'2" Body weight 59.875 kg 59.875 kg [facility] ([facility]) Body weight 132.00 [lb_av] 132.00 [lb_av] [facility] T ([facility]) Oxygen saturation in Arterial blood by Pulse oximetry 99 % 99 % [facility] ([facility]) Respiratory rate 18 /min 18 /min [facility] ( [facility]) Body surface area 1.60 m2 1.60 m2 [facility] ([facility]) Body temperature 98.4 [degF] 98.4 [degF] [facility] ([facility]) Heart rate 90 /min 90 /min [facility] ([facility]) Diastolic blood pressure 82 mm[Hg] 82 mm[Hg] [facility] ([facility]) Systolic blood pressure 128 mm[Hg] 128 mm[Hg] M [facility] ([facility]) Body surface area Derived from formula 1.60 m2 1.60 m2 [facility] ([facility]) Body mass index (BMI) [Ratio] 24.1 kg/m2 24.1 k g/m2 [facility] ([facility]) Body height 62 [in_i] 62 [in_i] [facility] ([facility]) 5'2" Body weight 59.875 kg 59.875 kg [facility] ([facility]) Body weight 132.00 [lb_av] 132.00 [lb_av] [facility] T ([facility]) Oxygen saturation in Arterial blood by Pulse oximetry 98 % 98 % [facility] ([facility]) Respiratory rate 18 /min 18 /min [facility] ( [facility]) Body temperature 98.2 [degF] 98.2 [degF] [facility] ([facility]) Heart rate 90 /min 90 /min [facility] ([facility]) Diastolic blood pressure 70 mm[Hg] 70 mm[Hg] [facility] ([facility]) Systolic blood pressure 126 mm[Hg] 126 mm[Hg] M [facility] ([facility]) Body surface area 1.60 m2 1.60 m2 [facility] ([facility]) Body mass index (BMI) [Ratio] 21.0 kg/m2 21.0 k g/m2 [facility] ([facility]) Body height 62 [in_i] 62 [in_i] [facility] ([facility]) 5'2" Body weight 115.00 [lb_av] 115.00 [lb_av] [facility] T ([facility]) Body temperature 97.8 [degF] 97.8 [degF] [facility] ([facility]) Oxygen saturation in Arterial blood by Pulse oximetry 100 % 100 % [facility] ([facility]) Respiratory rate 16 /min 16 /min [facility] ( [facility]) Heart rate 89 /min 89 /min [facility] ([facility]) Diastolic blood pressure 72 mm[Hg] 72 mm[Hg] [facility] ([facility]) Systolic blood pressure 111 mm[Hg] 111 mm[Hg] [facility] ([facility])
[2020-04-05] MEDS ORDERED: NS 1,000 ML IV ONE (21:15)
[2020-04-05] MEDS ORDERED: ASPIRIN 81 MG CHEW TABLET PO ONE (21:15)
[2020-04-05 21:51] LABS: BASO # 0.1 10^3/uL (0.0-0.2); BASO % 0.9 % (0.0-1.0); EOS # 0.1 10^3/uL (0.0-0.5); EOS % 1.2 % (0.0-3.0); HEMATOCRIT 45.4 % (36.0-47.0); HEMOGLOBIN 14.7 g/dl (12.0-15.5); LYMPH # 2.7 10^3/uL (1.5-5.0); MEAN CORPUSCULAR HEMOGLOBIN 28.3 pg (27.0-33.0); MEAN CORPUSCULAR HGB CONC 32.4 g/dl (32.0-36.5); MEAN CORPUSCULAR VOLUME 87.3 fl (80.0-96.0); MONO # 0.4 10^3/uL (0.0-0.8); MONO % 6.6 % (0.0-5.0); NEUTROPHILS # 3.3 10^3/uL (1.5-8.5); NEUTROPHILS % 50.1 % (36.0-66.0); PLATELET COUNT, AUTOMATED 384 10^3/uL (150-450); WHITE BLOOD COUNT 6.5 10^3/uL (4.0-10.0)
--- NOTE | 2020-04-05 22:04 | REPVR ---
PROCEDURE INFORMATION: Exam: XR Chest, 2 Views Exam date and time: 04/05/2020 9:33 PM Age: 19 years old Clinical indication: Other: Chest pain TECHNIQUE: Imaging protocol: XR of the chest Views: 2 views. COMPARISON: CR Abdomen,Flat Upright,PA CHEST 01/13/2017 4:36 PM FINDINGS: Lungs: Unremarkable. No consolidation. Pleural space: Unremarkable. No pleural effusion. No pneumothorax. Heart/Mediastinum: Unremarkable. No cardiomegaly. Bones/joints: Unremarkable. IMPRESSION: No acute findings. Electronically signed by: Jaime Jack On 04/05/2020 22:04:08 PM
[2020-04-05 22:19] LABS: BLOOD UREA NITROGEN 10 MG/DL (7-18); CALCIUM LEVEL 9.6 MG/DL (8.5-10.1); CARBON DIOXIDE LEVEL 25 MEQ/L (21-32); CHLORIDE LEVEL 104 MEQ/L (98-107); CK-MB VALUE MASS < 1.0 NG/ML (<3.6); CPK CREATINE PHOSPHOKINASE 80 U/L (26-192); FREE T4 0.95 NG/DL (0.78-1.33); GLUCOSE, FASTING 92 MG/DL (70-100); MB/CK RELATIVE INDEX 1.25 (< OR =4); SODIUM LEVEL 138 MEQ/L (136-145); TROPONIN I < 0.02 NG/ML (< 0.10)
[2020-04-05 22:32] VITALS: BP 138/93
--- NOTE | 2020-04-06 00:52 | ECGEPIP ---
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
== END 2020-04-05 22:44 | disposition home or self-care (01) ==
LOC: M ED 19:03
DX: R07.9 Chest pain, unspecified (principal); K58.9 Irritable bowel syndrome, unspecified; K55.1 Chronic vascular disorders of intestine; Z79.3 Long term (current) use of hormonal contraceptives

== ENCOUNTER → 2020-06-26 | Outpatient (CLI) | payer OTHER ==
[~2020-06-26] MED LIST changes: +ENSK1TAB3
== END ==
LOC: M LABSMTC 14:04
PROVIDERS: ATTEND Pediatrics
DX: Z20.822 Contact with and (suspected) exposure to COVID-19 (principal)

== ENCOUNTER → 2020-07-10 | Outpatient (CLI) | payer OTHER | LOC: M LABSMTC 14:01 | PROVIDERS: ATTEND Pediatrics | DX: Z11.52 Encounter for screening for COVID-19 (principal) ==

== ENCOUNTER 2020-08-03 12:42 | Emergency (ER) | payer OTHER ==
[~2020-08-03] VITALS: Ht 157.5 cm; Wt 54.5 kg
--- NOTE | 2020-08-03 13:17 | REP ---
INDICATION: TRAUMA COMPARISON: None. TECHNIQUE: AP, lateral, bilateral oblique views left hand. FINDINGS: The osseous structures and joint spaces are intact and normal. There is no evidence for acute fracture or dislocation. Surrounding soft tissues are unremarkable. No subcutaneous emphysema or radiodense foreign body. IMPRESSION: . No acute fracture or dislocation. <Electronically signed by Mark Caputo > 08/03/20 [id number]
--- NOTE | 2020-08-03 13:18 | REP ---
INDICATION: TRAUMA COMPARISON: None. TECHNIQUE: AP, and lateral views of the left forearm. FINDINGS: The osseous structures and joint spaces are intact and normal. There is no evidence for acute fracture or dislocation. Surrounding soft tissues are unremarkable. No subcutaneous emphysema or radiodense foreign body. IMPRESSION: . No acute fracture or dislocation. <Electronically signed by Mark Caputo > 08/03/20 [id number]
[2020-08-03 14:15] VITALS: BP 118/59
== END 2020-08-03 14:34 | disposition home or self-care (01) ==
LOC: M ED 12:42
DX: S67.32XA Crushing injury of left wrist, initial encounter (principal); W23.0XXA Caught, crushed, jammed, or pinched between moving objects, initial encounter; Y92.89 Other specified places as the place of occurrence of the external cause; Y99.0 Civilian activity done for income or pay

== ENCOUNTER 2020-12-13 09:19 | Emergency (ER) | payer OTHER ==
[~2020-12-13] VITALS: Ht 157.5 cm; Wt 58.2 kg
[2020-12-13 09:19] VITALS: BP 136/79
[2020-12-13] MEDS ORDERED: BENZ-18 (09:26)
[2020-12-13] MEDS ORDERED: PRED20TA (09:26)
[2020-12-13] MEDS ORDERED: AZIT500T5 (09:26)
== END 2020-12-13 12:04 | disposition left against medical advice (07) ==
LOC: M ED 09:19
DX: Z53.29 Procedure and treatment not carried out because of patient's decision for other reasons (principal)

== ENCOUNTER 2021-02-26 07:17 | Emergency (ER) | payer OTHER ==
[~2021-02-26] VITALS: Ht 157.5 cm; Wt 59.7 kg
[~2021-02-26 07:17] MED LIST changes: +AZIT500T5; +BENZ-18; +PRED20TA
--- OUTSIDE RECORDS SUMMARY | 2021-02-26 07:23 | CCD | Continuity of Care Document ---
Author Author [facility] Organization [facility] Address [address] [place] [address] Phone Care Team Providers Care Flotation Tender Helper Name Role Phone Cindy Srinivasan Unavailable Unavailable Allergies, Adverse Reactions, Alerts Substance Reaction Status Criticality No Known Allergies Active No Information Medications Medication Instructions Dosage Effective Dates (start - stop) Sta tus Comments Sprintec (28) 0.25 mg-35 mcg tablet take 1 tablet by oral ro [place] every day 1.00 tablet - Active Problems Condition Effective Dates (start - stop) Clinical Status C omments Other sex counseling Human immunodeficiency virus [HIV] counseling Encounter for oth general cnsl and advice on contraception Pelvic and perineal pain Encounter for test, result negative Encntr screen for infections w sexl mode of transmiss Encounter for screening for malignant neoplasm of cervix Acute vaginitis Atypical squamous cells of undetermined significance on cervical Papanicolaou smear - Active Procedures Procedure Date No Information Results Test Name Date and Time Measure Units Reference Range Abnormal Flag St atus Comments No Information Advance Directives Directive Yes / No Effective Date File Name No Information Encounters Encounter Description Practice Location Reason(s) For Visit Diagnose s Date Provider Providers Copied on Encounter [facility], [address] [place] [address], [id number], [place] tel:[phone] KHANH Lewis No Information Clive White. [address] [place] [address], [id number], [place]. tel:[phone] [facility], [address] [place], [place], [id number], tel:[phone] PPNCMELVIN Lewis Other sex counselin Dasia immunodeficiency virus [HIV] counselingEncounter for oth general cnsl and advice on contraceptionPelvic and perineal painEncounter for test, result negativeEncntr screen for infections w sexl mode of transmissEncounter for screening for malignant neoplasm of cervixAcute vaginitis Nikki White. [address] [place] [address], [id number], . tel:[phone] Referring Provider: Cindy Jordan, [address] [place] [address], [id number]. tel:[phone] Family History Family Member Diagnosis Age At Onset No Information Immunizations Vaccine Date Status Comments No Information Payers Payer name Insurance type Covered alliance party ID Authorization(s ) [facility] CI [id number] Social History Type Description Quantity Date Captured Comments Alcohol Use Details Unknown Caffeine Use Details Unknown Tobacco Use Status No Information Smoking Status Never smoker Sex Female Vital Signs Date / Time: Height Weight BMI Pulse Rate Blood Pressure Temperatu re Respiratory Rate Body Surface Area Head Circumference BMI percentile Pulse Ox In haled Ox No Information Chief Complaint And Reason For Visit No Information Reason For Referral Reason For Referral No Information Plan Of Treatment Date Type Action Status No Information History Of Present Illness Encounter Date Complaint History Of Present I llness No Information Functional Status Date Functional Assessment No Information Medications Administered Medication Instructions Dosage Effective Dates (start - stop) Sta tus Comments No Information Instructions Date Instruction Additional Informati on No Information Assessments Type Assessment Date No Information Goals Health Concern Goal Type Priority Status Date No Information Medical Equipment Description Device Tate Device Identifier Effective Mihai es (start - stop) Status No Information Mental Status Date Cognitive Assessment No Information Health Concerns Observation Date No Information Concern Status Date No Information Physical Examination Exam Findings Details No Information
--- OUTSIDE RECORDS SUMMARY | 2021-02-26 07:23 | CCD | Continuity of Care Document ---
Author Vicky Foster PA-C Organization Unknown Address [address] [place] [address] [address] [place] [address] Phone [phone] Care Team Providers Care Demurrage Clerk Name Role Phone Kallie Arana SEA FOAM KISS MAKER AUTM [phone] Problems Description No Information Available Social History Type Date Description Comments Sex Unknown ETOH Use Occasionally consumes alcohol Tobacco Use Start: Unknown Denies Smoking Allergies and adverse reactions Description No Known Drug Allergies Medications Active Medications SIG Qnty Indications Ordering Provide r Date Sprintec 28 0.25-35mg-mcg Tablets Unknown Aleve 220mg Tablets 1 by mouth twice a day w/ food as needed Unknown Immunizations Description No Information Available Vital Signs Date Vital Result Comment 08/04/2020 2:44pm Body Temperature 97.1 F Height 62.5 inches 5'2.50" Weight 119.25 lb BMI (Body Mass Index) 21.5 kg/m2 02/28/2020 9:13am Body Temperature 97.1 F Height 62 inches 5'2" Weight 125.00 lb BMI (Body Mass Index) 22.9 kg/m2 Results Description No Information Available Procedures Date Code Description Status 01/15/2021 60101 Office/Outpatient Established Mo d MDM 30-39 Min Completed 01/04/2021 70308 Consultation Outpatient Level 4 Completed 01/04/2021 29879 Nerve Conduction 9-10 Studies Co mpleted 01/04/2021 20752 Needle Electromyography,Complete Five Or More Muscles Studied Completed 11/23/2020 61182 Office/Outpatient Established Mo d MDM 30-39 Min Completed 10/19/2020 03985 Office/Outpatient Established Lo w MDM 20-29 Min Completed 09/28/2020 14058 MRI Upper Extremity Any Joint Co mpleted 09/05/2020 75273 Office/Outpatient Established Mo d MDM 30-39 Min Completed 08/04/2020 49785 Office/Outpatient Established Mo d MDM 30-39 Min Completed Medical Devices Description No Information Available Encounters Type Date Location Provider Dx Diagnosis Office Visit 01/15/2021 1:15p Graham Dunham PA-C R2 0.2 Paresthesia of skin M54.2 Cervicalgia M79.642 Pain in left hand Office Visit 01/04/2021 2:30p [place] MD R20.2 Paresthesia of skin M54.2 Cervicalgia M79.642 Pain in left hand Office Visit 11/23/2020 8:45a [place] PA-C S6 6.812D Strain of musc/fasc/tend at s/hnd lv, left hand, subs Office Visit 10/19/2020 9:15a Graham Dunham PA-C S6 6.812D Strain of musc/fasc/tend at s/hnd lv, left hand, subs Office Visit 09/05/2020 8:45a [place] PA-C S6 7.42xD Crushing injury of left wrist and hand, subsequent encounter S56.512D [facility], subs Office Visit 08/04/2020 2:00p Graham Dunham PA-C S6 7.42xA Crushing injury of left wrist and hand, initial encounter S56.512A [facility], init Assessments Date Code Description Provider 01/15/2021 R20.2 Paresthesia of skin Brenda coleman PA-C 01/15/2021 M54.2 Cervicalgia Brenda horta PA-C 01/15/2021 M79.642 Pain in left hand Brenda hill PA-C 01/04/2021 R20.2 Paresthesia of skin Darek monaco MD 01/04/2021 M54.2 Cervicalgia Darek Gomez MD 01/04/2021 M79.642 Pain in left hand Darek guzman MD 11/23/2020 S66.812D Strain of other spec ified muscles, fascia and tendons at wrist and hand level, left hand, subsequent encounter Brenda Dunham PA-C 10/19/2020 S66.812D Strain of other spec ified muscles, fascia and tendons at wrist and hand level, left hand, subsequent encounter Brenda Dunham PA-C 09/28/2020 S67.42xD Crushing injury of l eft wrist and hand, subsequent encounter Brenda Dunham PA-C 09/28/2020 S67.42xD Crushing injury of l eft wrist and hand, subsequent encounter MRI 09/28/2020 S66.812D Strain of other spec ified muscles, fascia and tendons at wrist and hand level, left hand, subsequent encounter Brenda Dunham PA-C 09/28/2020 S66.812D Strain of other spec ified muscles, fascia and tendons at wrist and hand level, left hand, subsequent encounter MRI 09/05/2020 S67.42xD Crushing injury of l eft wrist and hand, subsequent encounter Brenda Dunham PA-C 09/05/2020 S56.512D Strain of other exte nsor muscle, fascia and tendon at forearm level, left arm, subsequent encounter Brenda Dunham PA-C 08/04/2020 S67.42xA Crushing injury of left wrist an d hand, initial encounter Brenda Dunham PA-C 08/04/2020 S67.42xA Crushing injury of left wrist an d hand, initial encounter Brenda Dunham PA-C 08/04/2020 S56.512A Strain of other exte nsor muscle, fascia and tendon at forearm level, left arm, initial encounter Brenda Dunham PA-C 08/04/2020 S56.512A Strain of other exte nsor muscle, fascia and tendon at forearm level, left arm, initial encounter Brenda Dunham PA-C Plan of Treatment Future Appointment(s):* 02/13/2021 3:45 pm - Brenda Dunham PA-C at [place] 01/15/2021 - Brenda Dunham PA-C* R20.2 Paresthesia of skin * M54.2 Cervicalgia* Follow up:* after cervical spine MRI results with BMS * M79.642 Pain in left hand Functional Status Description No Information Available Mental Status Description No Information Available Referrals Refer to Dr Reason for Referral Status Appt Date Brenda Dunham PA-C MRI PER [facility] APPROVAL FOR MRI OF C-SPINE TO BE DONE AT [place] [facility] NT Created [address] [facility] [place] [address] [phone] Meron Nelson MD EMG LUE EMG OK TO QUOC HERE P ER VICKY VS ONECALL PASSED TO [place]. LS Created [address] [phone] Judah Quezada MD MRI LT WRIST WRITTEN AUTH PASSED TO XRAY. LS Created [facility] [address] [id number] [phone] Judah Quezada MD PT LT WRIST WRITTEN AUTH PAS SED TO CHART GOING TO MVAIS LAMB. CASSIA Created [address] [phone] Pauline Quezada PA-C DME LT WRIST [employer]. OK TO SUP PLY HERE. LS Created [address] [address] [phone]
--- OUTSIDE RECORDS SUMMARY | 2021-02-26 07:23 | CCD | Continuity of Care Document ---
Author Author Vicky BULLOCK MD Organization Unknown Address [address] [place] [address], [facility] [address] [place] [address] Phone [phone] Care Team Providers Care Chief Wheelage Clerk Name Role Phone SumitStonemounika Caruso GASOLINE TRACTOR OPERATOR AUTM [phone] Problems Description No Information Available Social History [...] Available Procedures Date Code Description Status 01/15/2021 69360 Office/Outpatient Established Mo d MDM 30-39 Min Completed 01/04/2021 02925 Consultation Outpatient Level 4 Completed 01/04/2021 24215 Nerve Conduction 9-10 Studies Co mpleted 01/04/2021 66658 Needle Electromyography,Complete Five Or More Muscles Studied Completed 11/23/2020 10825 Office/Outpatient Established Mo d MDM 30-39 Min Completed 10/19/2020 25278 Office/Outpatient Established Lo w MDM 20-29 Min Completed 09/28/2020 49941 MRI Upper Extremity Any Joint Co mpleted 09/05/2020 24941 Office/Outpatient Established Mo d MDM 30-39 Min Completed 08/04/2020 32314 Office/Outpatient Established Mo d MDM 30-39 Min Completed Medical Devices Description No Information Available Encounters Type Date Location Provider Dx Diagnosis Office Visit 01/15/2021 1:15p Graham Dunham PA-C R2 0.2 Paresthesia of skin M54.2 Cervicalgia M79.642 Pain in left hand Office Visit 01/04/2021 2:30p [place] R20.2 Paresthesia of skin M54.2 Cervicalgia M79.642 Pain in left hand Office Visit 11/23/2020 8:45a [place] PA-C S6 6.812D Strain of musc/fasc/tend at s/hnd lv, left hand, subs Office Visit 10/19/2020 9:15a Graham Dunham PA-C S6 6.812D Strain of musc/fasc/tend at s/hnd lv, left hand, subs Office Visit 09/05/2020 8:45a [place] PA-C S6 7.42xD Crushing injury of left wrist and hand, subsequent encounter S56.512D [facility] ext[facility] mus[facility], left [facility], subs Office Visit 08/04/2020 2:00p Graham Dunham PA-C S6 7.42xA Crushing injury of left wrist and hand, initial encounter S56.512A Strain of extn musc/fasc/ten d at [facility], left arm, init Assessments Date Code Description Provider 01/15/2021 R20.2 Paresthesia of skin Brenda coleman PA-C 01/15/2021 M54.2 Cervicalgia Brenda horta PA-C 01/15/2021 M79.642 Pain in left hand Brenda hill PA-C 01/04/2021 R20.2 Paresthesia of skin Darek monaco MD 01/04/2021 M54.2 Cervicalgia Darek Bullock MD 01/04/2021 M79.642 Pain in left hand [...] encounter Brenda Dunham PA-C Plan of Treatment 01/15/2021 - Brenda Dunham PA-C* R20.2 Paresthesia of skin * M54.2 Cervicalgia* New Xrays:* MRI Cervical Spine, Ordered: 01/15/21 * Follow up:* after cervical spine MRI results with BMS * M79.642 Pain in left hand Functional Status Description No Information Available Mental Status Description No Information Available Referrals Refer to Reason for Referral Status Appt Date Meron Nelson MD EMG LUE EMG OK TO QUOC HERE P ER VICKY VS ONECALL PASSED TO [place]. CASSIA Created [facility], [place] [address] [phone] Judah Quezada MD MRI LT WRIST WRITTEN AUTH PASSED TO XRAY. CASSIA Created [facility], [address] [address] [phone] Judah Quezada MD PT LT WRIST WRITTEN AUTH PAS SED TO CHART GOING TO [place]. CASSIA Created [facility], [address] [address] [phone] Pauline Quezada PA-C DME LT WRIST [employer]. OK TO SUP PLY HERE. CASSIA Created [facility] [place] [address] [phone]
--- OUTSIDE RECORDS SUMMARY | 2021-02-26 07:23 | CCD | Continuity of Care Document ---
Author Author [facility] Organization [facility] Address Unknown Phone Unavailable Care Team Providers Care Density Control Puncher Name Role Phone Pauline Lion MD Unavailable Unavailable Allergies, Adverse Reactions, Alerts Substance Reaction Status Criticality No Known Allergies Active No Information Medications Medication Instructions Dosage Effective Dates (start - stop) Sta tus Comments Sprintec (28) 0.25 mg-35 mcg tablet take 1 tablet by oral ro shania every day 1.00 tablet - Active Problems [...] Provider Providers Copied on Encounter [facility], [address] [place] [address], [id number], tel:[phone] [employer] [place] No Information Bubba Carpenter. [address] [place], [place], [id number], . tel:[phone] [facility], [address] [place] [address], [id number], tel:[phone] PPNCMELVIN Leiws Other sex counselin Dasia immunodeficiency virus [HIV] counselingEncounter for oth general cnsl and advice on contraceptionPelvic and perineal painEncounter for test, result negativeEncntr screen for infections w sexl mode of transmissEncounter for screening for malignant neoplasm of cervixAcute vaginitis Nikki White. [address] [place] [address], [id number], [place]. tel:[phone] Referring Provider: Cindy Jordan, [address] [place] [address], [id number]. tel:[phone] Family History Family Member Diagnosis Age At Onset No Information Immunizations Vaccine Date Status Comments No Information Payers Payer name Insurance type Covered green party ID Authorization(s ) [facility] CI [id number] Social History Type Description Quantity Date Captured [...] Date No Information Medical Equipment Description Device Tsaile Device Identifier Effective Mihai es (start - stop) Status No Information Mental Status Date Cognitive Assessment No Information Health Concerns Observation Date No Information Concern Status Date No Information Physical Examination Exam Findings Details No Information
--- OUTSIDE RECORDS SUMMARY | 2021-02-26 07:23 | CCD | Continuity of Care Document ---
Author Author [facility] Organization [facility] Address Unknown Phone Unavailable Care Team Providers Care Solids Control Technician Name Role Phone Pauline Lion MD Unavailable [...] Provider Providers Copied on Encounter [facility], [address] [place] [address], [id number], tel:[phone] [email or web address] [place] No Information Bubba Carpenter. [address] [place], [place], [id number], . tel:[phone] [facility], [address] [place] [address], [id number], tel:[phone] PPNCMELVIN Lewis Other sex counselin Dasia immunodeficiency virus [HIV] counselingEncounter for oth general cnsl and advice on contraceptionPelvic and perineal painEncounter for test, result negativeEncntr screen for infections w sexl mode of transmissEncounter for screening for malignant neoplasm of cervixAcute vaginitis Nikki White. [address] [place] [address], [id number], [place]. tel:[phone] Referring Provider: Cindy Jordan, [address] [place] [address], [id number]. tel:[phone] Family History Family Member Diagnosis Age At Onset No Information Immunizations Vaccine Date Status Comments No Information Payers Payer name Insurance type Covered republican ID Authorization(s ) [facility] CI [id number] Social History Type Description Quantity Date Captured [...] Date No Information Medical Equipment Description Device [place] Device Identifier Effective Mihai es (start - stop) Status No Information Mental Status Date Cognitive Assessment No Information Health Concerns Observation Date No Information Concern Status Date No Information Physical Examination Exam Findings Details No Information
--- OUTSIDE RECORDS SUMMARY | 2021-02-26 07:23 | CCD | Continuity of Care Document ---
Author Author Vicky SONG [place] Organization Unknown Address [address] [place] [address] [place] [address] Phone [phone] Care Team Providers Care Clinical Trials Nurse Name Role Phone [facility] AUTM [phone] Problems Description No Information Available Social History Type Date Description Comments Sex Unknown ETOH Use Denies alcohol use Tobacco Use Start: Unknown Patient has never smoked Tobacco Use Start: Unknown The Patient Has Never Vaped Smoking Status Reviewed: 01/23/21 The Patient Has Never Vaped Allergies and adverse reactions Description No Known Drug Allergies Medications Active Medications SIG Qnty Indications Ordering Provide r Date Tobramycin 0.3% Solution instill 1-2 drops to affected eye three times a day x 7 days. 1units H10.31 Jack Teague JR., M.D. 01/23/2021 Ketorolac Tromethamine 0.5% Soluti on instill one drop twice a day for allergy symptoms/redness to eyes 3ml H10.31 Jack Teague JR., M.D. 01/23/2021 Tylenol Cold & Head Severe Congestion prn Unknown Control Pill Unknown History Medications Proair HFA 108(90Base) mcg/Act Aer osol 2 puff every 4 hours as needed sob/wheezing 17gm J20.9 Jack Teague JR., M.D. 12/13/2020 - 01/22/2021 Amoxicillin 875mg Tablets take one tablet every 12 hrs.x 10 days. 20tabs J20.9 Jack Teague JR., M.D. 09/20/2020 - 12/13/2020 Prednisone 20mg Tablets take one tablet twice a day x 5 days 10tabs J20.9 Aurora Ghosh JR. 09/20/2020 - 11/16/2019 Immunizations Description No Information Available Vital Signs Date Vital Result Comment 01/23/2021 10:15am BP Systolic 118 mmHg BP Diastolic 81 mmHg Heart Rate 71 /min Respiratory Rate 16 /min O2 % BldC Oximetry 100 % Body Temperature 98.5 F Weight 125.00 lb Height 62 inches 5'2" BMI (Body Mass Index) 22.9 kg/m2 Pain Level 6 12/13/2020 12:55pm BP Systolic 122 mmHg BP Diastolic 84 mmHg Heart Rate 74 /min Respiratory Rate 18 /min O2 % BldC Oximetry 99 % Body Temperature 98.6 F Weight 114.00 lb Height 62 inches 5'2" BMI (Body Mass Index) 20.8 kg/m2 Pain Level 7 Results Description No Information Available Procedures Date Code Description Status 01/23/2021 65106 Office/Outpatient Established Lo w MDM 20-29 Min Completed 12/13/2020 26169 Office/Outpatient Established Lo w MDM 20-29 Min Completed 09/20/2020 67393 Office/Outpatient Established Lo w MDM 20-29 Min Completed Medical Devices Description No Information Available Encounters Type Date Location Provider Dx Diagnosis Office Visit 01/23/2021 8:35a Main Office CADEN Osorio H10 .31 Unspecified acute conjunctivitis, right eye Office Visit 12/13/2020 10:25a Main Office CADEN Osorio J01 .10 Acute frontal sinusitis, unspecified J20.9 Acute bronchitis, unspecifie d Z20.828 Contact w and exposure to ot h viral communicable diseases Office Visit 09/20/2020 12:00p Main Office CADEN Osorio J06 .9 Acute upper respiratory infection, unspecified J20.9 Acute bronchitis, unspecifie d Z20.828 Contact w and exposure to ot h viral communicable diseases Assessments Date Code Description Provider 01/23/2021 H10.31 Unspecified acute conjunctivitis , right eye CADEN Osorio 12/13/2020 J01.10 Acute frontal sinusitis, unspeci fied CADEN Osorio 12/13/2020 J20.9 Acute bronchitis, unspecified Mi CADEN Vo 12/13/2020 Z20.828 Contact with and (shin spected) exposure to other viral communicable diseases CADEN Osorio 09/20/2020 J06.9 Acute upper respiratory infectio n, unspecified CADEN Osorio 09/20/2020 J20.9 Acute bronchitis, unspecified Mi CADEN Vo 09/20/2020 Z20.828 Contact with and (shin spected) exposure to other viral communicable diseases CADEN Osorio Plan of Treatment 01/23/2021 - CADEN Osorio* H10.31 Unspecified acute conjunctivitis, right eye* New Medication:* Tobramycin 0.3 % - instill 1-2 drops to affected eye three times a day x 7 days. * Ketorolac Tromethamine 0.5 % - instill one drop twice a day for allergy symptoms/redness to eyes * Comments:* Good Hand washing. Use of Drops reviewed.cool compress to eye. Use of Diphenhydramine reviewed. Functional Status Description No Information Available Mental Status Description No Information Available Referrals Description No Information Available
--- OUTSIDE RECORDS SUMMARY | 2021-02-26 07:23 | CCD | Continuity of Care Document ---
Author Author Vicky BULLOCK MD Organization Unknown Address [address] [place] [address], [facility] [address] [place] [address] Phone [phone] Care Team Providers Care Transmission Systems Operator Name Role Phone SumitStonemounika Caruso [employer] AUTM [phone] Problems Description No Information Available Social History [...] Information Available Procedures Date Code Description Status 01/04/2021 19939 Consultation Outpatient Level 4 Completed 01/04/2021 74012 Nerve Conduction 9-10 Studies Co mpleted 01/04/2021 99371 Needle Electromyography,Complete Five Or More Muscles Studied Completed 11/23/2020 85299 Office/Outpatient Established Mo d MDM 30-39 Min Completed 10/19/2020 34733 Office/Outpatient Established Lo w MDM 20-29 Min Completed 09/28/2020 01399 MRI Upper Extremity Any Joint Co mpleted 09/05/2020 26358 Office/Outpatient Established Mo d MDM 30-39 Min Completed 08/04/2020 57664 Office/Outpatient Established Mo d MDM 30-39 Min Completed Medical Devices Description No Information Available Encounters Type Date Location Provider Dx Diagnosis Office Visit 01/04/2021 2:30p Graham Bullock MD R20.2 Paresthesia of skin M54.2 Cervicalgia M79.642 Pain in left hand Office Visit 11/23/2020 8:45a [place] PA-C S6 6.812D Strain of musc/fasc/tend at wrs/hnd lv, left hand, subs Office Visit 10/19/2020 9:15a [place] Brenda Dunham PA-C S6 6.812D Strain of musc/fasc/tend at wrs/hnd lv, left hand, subs Office Visit 09/05/2020 8:45a [place] Brenda Dunham PA-C S6 7.42xD Crushing injury of left wrist and hand, subsequent encounter S56.512D Strain of extn musc/fasc/ten d at forarm lv, left arm, subs Office Visit 08/04/2020 2:00p [place] Dun[place] PA-C S6 7.42xA Crushing injury of left wrist and hand, initial encounter S56.512A Strain of extn musc/fasc/ten d at forarm lv, left arm, init Assessments Date Code Description Provider 01/04/2021 R20.2 Paresthesia of skin Darek monaco [...] Dunham PA-C Plan of Treatment Future Appointment(s):* 01/15/2021 1:15 pm - Brenda Dunham PA-C at [place] 01/04/2021 - Darek Bullock MD* R20.2 Paresthesia of skin * M54.2 Cervicalgia* Follow up:* EMG results with BMS * M79.642 Pain in left hand Functional Status Description No Information Available Mental Status Description No Information Available Referrals Refer to Reason for Referral Status Appt Date Meron Nelson MD EMG LUE EMG OK TO [facility] P CHRISTINA TUCKER VS ONECALL PASSED TO [place]. LS Created [facility], [address] [place] [address] [phone] Judah Quezada MD MRI LT WRIST WRITTEN AUTH PASSED TO XRAY. C[facility]IA Created [address] [facility], [address] [place] [address] [phone] Judah Quezada MD PT LT WRIST WRITTEN AUTH PAS SED TO CHART GOING TO [place]. C[facility]IA Created [address] [facility], [address] [place] [address] [phone] Pauline Quezada PA-C DME LT WRIST [employer]. OK TO SUP PLY HERE. CASSIA Created [address] [facility] [address] [place] [address] [phone]
--- OUTSIDE RECORDS SUMMARY | 2021-02-26 07:23 | CCD | Continuity of Care Document ---
Author Vicky Foster PA-C Organization Unknown Address [address] [place] [address] Phone [phone] Care Team Providers Care Single End Sewer Name Role Phone Kallie Arana INSULATION SPRAYER AUTM [phone] Problems Description No Information Available Social History Type Date Description Comments Sex Unknown ETOH Use Occasionally consumes alcohol Tobacco Use Start: Unknown Denies Smoking Allergies and adverse reactions Description No Known Drug Allergies Medications Active Medications SIG Qnty Indications Ordering Provide r Date Tizanidine HCL 4mg Tablets 1 by mouth three times a day 30tabs Danay Nelson MD 02/13 Sprintec 28 0.25-35mg-mcg Tablets Unknown Aleve 220mg Tablets 1 by mouth twice a day w/ food as needed Unknown Ketorolac Tromethamine 0.5% Solution Ryan Schmitz PA Tobramycin 0.3% Solution Instill 1-2 Drops Into Affected Eye Three Times A Day For 7 Days U nknown Metronidazole 500mg Tablets Cindy Jordan PA-C Albuterol Sulfate HFA 108(90Base) mcg/Act Aerosol Ryan Schmitz PA Prednisone 20mg Tablets Abhishek Tran RPA Benzonatate 100mg Capsules Abhishek Tran RPA Enskyce 0.15-30mg-mcg Tablets Melody Turk Arnp Fluticasone Propionate 50mcg/Act Suspension Mj Garcia RPA-C Sinus 12 Hour 120mg Tablets ER 12HR Mj Garcia RPA-C Immunizations Description No Information Available Vital Signs Date Vital Result Comment 08/04/2020 2:44pm Body Temperature 97.1 F Height 62.5 inches 5'2.50" Weight 119.25 lb BMI (Body Mass Index) 21.5 kg/m2 02/28/2020 9:13am Body Temperature 97.1 F Height 62 inches 5'2" Weight 125.00 lb BMI (Body Mass Index) 22.9 kg/m2 Results Description No Information Available Procedures Date Code Description Status 02/13/2021 02454 Office/Outpatient Established Mo d MDM 30-39 Min Completed 01/15/2021 03543 Office/Outpatient Established Mo d MDM 30-39 Min Completed 01/04/2021 01875 Consultation Outpatient Level 4 Completed 01/04/2021 70816 Nerve Conduction 9-10 Studies Co mpleted 01/04/2021 15440 Needle Electromyography,Complete Five Or More Muscles Studied Completed 11/23/2020 80261 Office/Outpatient Established Mo d MDM 30-39 Min Completed 10/19/2020 30559 Office/Outpatient Established Lo w MDM 20-29 Min Completed 09/28/2020 02756 MRI Upper Extremity Any Joint Co mpleted 09/05/2020 53667 Office/Outpatient Established Mo d MDM 30-39 Min Completed Medical Devices Description No Information Available Encounters Type Date Location Provider Dx Diagnosis Office Visit 02/13/2021 3:45p Graham Dunham PA-C M5 0.30 Other cervical disc degeneration, unsp cervical region S46.812A Strain of musc/fasc/tend at shldr/up arm, left arm, init Office Visit 01/15/2021 1:15p Graham Dunham PA-C R2 0.2 Paresthesia of skin M54.2 Cervicalgia M79.642 Pain in left hand Office Visit 01/04/2021 2:30p [place] Gomez MD R20.2 Paresthesia of skin M54.2 Cervicalgia M79.642 Pain in left hand Office Visit 11/23/2020 8:45a Graham Dunham PA-C S6 6.812D Strain of musc/fasc/tend at wrs/hnd lv, left hand, subs Office Visit 10/19/2020 9:15a [place] Brenda Dunham PA-C S6 6.812D Strain of musc/fasc/tend at wrs/hnd lv, left hand, subs Office Visit 09/05/2020 8:45a [place] Brenda Dunham PA-C S6 7.42xD Crushing injury of left wrist and hand, subsequent encounter S56.512D Strain of extn musc/fasc/ten d at forarm lv, left arm, subs Assessments Date Code Description Provider 02/13/2021 M50.30 Other cervical disc degeneration , unspecified cervical region Brenda Dunham PA-C 02/13/2021 S46.812A Strain of other musc les, fascia and tendons at shoulder and upper arm level, left arm, initial encounter Brenda Dunham PA-C 01/15/2021 R20.2 Paresthesia of skin Brenda coleman [...] left arm, subsequent encounter Brenda Dunham PA-C Plan of Treatment Future Appointment(s):* 03/29/2021 1:00 pm - Brenda Dunham PA-C at [place] 02/13/2021 - Brenda Dunham PA-C* M50.30 Other cervical disc degeneration, unspecified cervical region* Follow up:* 4 week neck recheck with BMS * S46.812A Strain of other muscles, fascia and tendons at shoulder and upper arm level, left arm, initial encounter * All * New Medication:* Tizanidine HCL 4 mg - 1 by mouth three times a day Functional Status Description No Information Available Mental Status Description No Information Available Referrals Refer to Dr Reason for Referral Status Appt Date Kan Moreno MD PT LT WRIST WRITTEN AUTH FOR LT WRIST ONLY. PASSED TO PT DEPT. Created [address] [place] [address] [phone] Brenda Dunham PA-C MRI PER [place] APPROVAL FOR MRI OF C-SPINE TO BE DONE AT [facility] [facility] NT Created [address] [place], [place] [address] [place] [address] [phone] Meron Nelson MD EMG LUE EMG OK TO [facility] P CHRISTINA TUCKER VS ONECALL PASSED TO [place]. Created [facility] [address] [id number] [phone] Judah Quezada MD MRI LT WRIST WRITTEN AUTH PASSED TO [place]. Created [address] [place] [address] [phone] Judah Quezada MD PT LT WRIST WRITTEN AUTH PAS SED TO CHART GOING TO [place] [facility]. LS Created [address] [place] [address], [address] [address] [phone]
--- OUTSIDE RECORDS SUMMARY | 2021-02-26 07:23 | CCD | Continuity of Care Document ---
Author Author Vicky SONG [place] Organization Unknown Address [address] [place] [address] [place] [address] Phone [phone] Care Team Providers Care Body Bumper Name Role Phone [facility] AUTM [phone] Problems Description No Information Available Social History [...] Available Procedures Date Code Description Status 01/23/2021 72283 Office/Outpatient Established Lo w MDM 20-29 Min Completed 12/13/2020 96871 Office/Outpatient Established Lo w MDM 20-29 Min Completed 09/20/2020 10471 Office/Outpatient Established Lo w MDM 20-29 Min [...]
--- OUTSIDE RECORDS SUMMARY | 2021-02-26 07:23 | CCD | Continuity of Care Document ---
Author Author Vicky BULLOCK MD Organization Unknown Address [address] [place] [address], [facility] [address] [place] [address] Phone [phone] Care Team Providers Care Chandelier Maker Name Role Phone SumitStonemounika Caruso FILM EDITOR AUTM [phone] Problems Description No Information Available Social History [...] Available Procedures Date Code Description Status 01/04/2021 97577 Consultation Outpatient Level 4 Completed 01/04/2021 71124 Nerve Conduction 9-10 Studies Co mpleted 01/04/2021 15197 Needle Electromyography,Complete Five Or More Muscles Studied Completed 11/23/2020 40003 Office/Outpatient Established Mo d MDM 30-39 Min Completed 10/19/2020 98146 Office/Outpatient Established Lo w MDM 20-29 Min Completed 09/28/2020 15009 MRI Upper Extremity Any Joint Co mpleted 09/05/2020 57971 Office/Outpatient Established Mo d MDM 30-39 Min Completed 08/04/2020 20910 Office/Outpatient Established Mo d MDM 30-39 Min Completed Medical Devices Description No Information Available Encounters Type Date Location Provider Dx Diagnosis Office Visit 01/04/2021 2:30p Graham Bullock MD R20.2 Paresthesia of skin M54.2 Cervicalgia M79.642 Pain in left hand Office Visit 11/23/2020 8:45a [place] PA-C S6 6.812D Strain of musc/fasc/tend at wrs/hnd lv, left hand, subs Office Visit 10/19/2020 9:15a [place] Brenda Dunham PA-C S6 6.812D Strain of musc/fasc/tend at wrs/hnd lv, left hand, subs Office Visit 09/05/2020 8:45a [place] Brenda Dunham PA-C S6 7.42xD Crushing injury of left wrist and hand, subsequent encounter S56.512D Strain of extn musc/fasc/ten d at forarm lv, left arm, subs Office Visit 08/04/2020 2:00p [place] PA-C S6 7.42xA Crushing injury of [...] 1:15 pm - Brenda Dunham PA-C at [place] 01/04/2021 - Darek Bullock MD* R20.2 Paresthesia of skin * M54.2 Cervicalgia* Follow up:* EMG results with BMS * M79.642 Pain in left hand Functional Status Description No Information Available Mental Status Description No Information Available Referrals Refer to Reason for Referral Status Appt Date Meron Nelson MD EMG LUE [facility] P CHRISTINA TUCKER VS ONECALL PASSED TO [place]. LS Created [facility], [address] [place] [address] [phone] Judah Quezada MD MRI LT WRIST WRITTEN AUTH PASSED TO XRAY. C[facility]IA Created [address] [facility], [address] [place] [address] [phone] Judah Quezada MD PT LT WRIST WRITTEN AUTH PAS SED TO CHART GOING TO [place]. [facility]IA Created [address] [facility], [address] [place] [address] [phone] Pauline Quezada PA-C DME LT WRIST [employer]. OK TO SUP PLY HERE. CASSIA Created [address] [facility] [address] [place] [address] [phone]
--- OUTSIDE RECORDS SUMMARY | 2021-02-26 07:23 | CCD | Continuity of Care Document ---
Author Vicky Foster PA-C Organization Unknown Address [address] [place] [address] [address] [place] [address] Phone [phone] Care Team Providers Care Income Tax Investigator Name Role Phone Kallie Arana [employer] AUTM [phone] Problems Description No Information Available Social History [...] Available Procedures Date Code Description Status 01/15/2021 51085 Office/Outpatient Established Mo d MDM 30-39 Min Completed 01/04/2021 52464 Consultation Outpatient Level 4 Completed 01/04/2021 58028 Nerve Conduction 9-10 Studies Co mpleted 01/04/2021 28012 Needle Electromyography,Complete Five Or More Muscles Studied Completed 11/23/2020 13212 Office/Outpatient Established Mo d MDM 30-39 Min Completed 10/19/2020 42260 Office/Outpatient Established Lo w MDM 20-29 Min Completed 09/28/2020 45834 MRI Upper Extremity Any Joint Co mpleted 09/05/2020 34606 Office/Outpatient Established Mo d MDM 30-39 Min Completed 08/04/2020 82954 Office/Outpatient Established Mo d MDM 30-39 Min Completed Medical Devices Description No Information Available Encounters Type Date Location Provider Dx Diagnosis Office Visit 01/15/2021 1:15p Graham Dunham PA-C R2 0.2 Paresthesia of skin M54.2 Cervicalgia M79.642 Pain in left hand Office Visit 01/04/2021 2:30p [place] Gomez MD R20.2 Paresthesia of skin M54.2 Cervicalgia M79.642 Pain in left hand Office Visit 11/23/2020 8:45a [place] Dun[place] PA-C S6 6.812D Strain of musc/fasc/tend at s/hnd lv, left hand, subs Office Visit 10/19/2020 9:15a Graham Dunham PA-C S6 6.812D Strain of musc/fasc/tend at s/hnd lv, left hand, subs Office Visit 09/05/2020 8:45a [place] Dun[place] PA-C S6 7.42xD Crushing injury of left wrist and hand, subsequent encounter S56.512D [facility], subs Office Visit 08/04/2020 2:00p Graham Dunham PA-C S6 7.42xA Crushing injury of left wrist and hand, initial encounter S56.512A Strain of extn musc[facility]fasc[facility], [facility], init Assessments Date Code Description [...] Xrays:* MRI Cervical Spine, Ordered: 01/15/21 * M79.642 Pain in left hand Functional Status Description No Information Available Mental Status Description No Information Available Referrals Refer to Reason for Referral Status Appt Date Meron Nelson MD EMG LUE EMG OK TO [facility] HERE P ER VICKY VS ONECALL PASSED TO [place]. [facility] Created [address] [facility], [address] [place] [address] [phone] Judah Quezada MD MRI LT WRIST WRITTEN AUTH PASSED TO XRAY. C[facility]IA Created [address] [facility], [address] [address] [phone] Judah Quezada MD PT LT WRIST WRITTEN AUTH PAS SED TO CHART GOING TO [place]. [facility] Created [address] [facility], [address] [address] [phone] Pauline Quezada PA-C DME LT WRIST [employer]. OK TO SUP PLY HERE. CASSIA Created [facility] [place] [address] [phone]
[2021-02-26 07:24] VITALS: BP 134/85
--- OUTSIDE RECORDS SUMMARY | 2021-02-26 07:24 | CCD | Continuity of Care Document ---
Author Author Vicky SONG [place] Organization Unknown Address [address] [place] [address] [place] [address] Phone [phone] Care Team Providers Care Grease Renderer Name Role Phone [facility] AUTM [phone] Problems Description No Information Available Social History Type Date Description Comments Sex Unknown ETOH Use Denies alcohol use Tobacco Use Start: Unknown Patient has never smoked Smoking Status Reviewed: 12/13/20 Patient has never smoked Allergies, Adverse Reactions, Alerts Description No Known Drug Allergies Medications Active Medications SIG Qnty Indications Ordering Provide r Date Proair HFA 108(90Base) mcg/Act Aer osol 2 puff every 4 hours as needed sob/wheezing 17gm J20.9 Jack Teague JR., M.D. 12/13/2020 Nasal Decongestant Unknown Tylenol Cold & Head Severe Congestion 9am today Unknown Zithromax Z-Jeremy 250mg Tablets as directed Unknown Prednisone Unknown History Medications Amoxicillin 875mg Tablets take one tablet every 12 hrs.x 10 days. 20tabs J20.9 Jack Teague JR., M.D. 09/20/2020 - 12/13/2020 Prednisone 20mg Tablets take one tablet twice a day x 5 days 10tabs J20.9 Aurora Ghosh JR. 09/20/2020 - 11/16/2019 No Active Medications Unknown - 09/20/2020 Immunizations Description No Information Available Vital Signs Date Vital Result Comment 12/13/2020 12:55pm BP Systolic 122 mmHg BP Diastolic 84 mmHg Heart Rate 74 /min Respiratory Rate 18 /min O2 % BldC Oximetry 99 % Body Temperature 98.6 F Weight 114.00 lb Height 62 inches 5'2" BMI (Body Mass Index) 20.8 kg/m2 Pain Level 7 09/20/2020 11:49am BP Systolic 106 mmHg BP Diastolic 70 mmHg Heart Rate 69 /min Respiratory Rate 15 /min O2 % BldC Oximetry 99 % Body Temperature 97.5 F Weight 114.00 lb Height 62 inches 5'2" BMI (Body Mass Index) 20.8 kg/m2 Pain Level 3 Results Description No Information Available Procedures Date Code Description Status 12/13/2020 62093 Office/Outpatient Established Lo w MDM 20-29 Min Completed 09/20/2020 11109 Office/Outpatient Established Lo w MDM 20-29 Min Completed Medical Devices Description No Information Available Encounters Type Date Location Provider Dx Diagnosis Office Visit 12/13/2020 10:25a Main Office CADEN [...] communicable diseases Assessments Date Code Description Provider 12/13/2020 J01.10 Acute frontal sinusitis, unspeci fied CADEN Osorio 12/13/2020 J20.9 Acute bronchitis, unspecified CADEN Duggan 12/13/2020 Z20.828 Contact with and (shin spected) exposure to other viral communicable diseases CADEN Osorio 09/20/2020 J06.9 Acute upper respiratory infectio n, unspecified CADEN Osorio 09/20/2020 J20.9 Acute bronchitis, unspecified [place] CADEN Vo 09/20/2020 Z20.828 Contact with and (shin spected) exposure to other viral communicable diseases CADEN Osorio Plan of Treatment No Information Available Functional Status Description No Information Available Mental Status Description No Information Available Referrals Description No Information Available
--- OUTSIDE RECORDS SUMMARY | 2021-02-26 07:24 | CCD | Continuity of Care Document ---
Author Author [facility] Organization [facility] Address Unknown Phone Unavailable Care Team Providers Care Automation Control Integrator Name Role Phone Cindy Srinivasan Unavailable Unavailable Allergies, Adverse Reactions, Alerts Substance Reaction Status Criticality No Known Allergies Active No Information Medications Medication Instructions Dosage Effective Dates (start - stop) Sta tus Comments metronidazole 500 mg tablet 1 tab po bid x 7d (#14) Oc - Active Sprintec (28) 0.25 mg-35 mcg tablet take [...] for malignant neoplasm of cervix Acute vaginitis Procedures Procedure Date OFFICE/OUTPATIENT VISIT, NEW URINE TEST CHYLMD TRACH, SWAB N.GONORRHOEAE, SWAB CYTOPATH, C/V, THIN LAYER CYTOPATH, C/V, INTERPRET HCS Without Test SMEAR, WET MOUNT, SALINE/INK CVR Blood Pressure CVR Med.Svc. Height/Weight CVR Photo Technician.Svc. STI / H CVR Photo Technician.Svc. Contraceptive Results Test Name Date and Time Measure Units Reference Range Abnormal Flag St atus Comments Panel Description: Wet Prep Final Wet Prep 10:52:38 Hyphae/Mansi: no; Budding yeast: no; Trich: no; Clue cells: yes (>=20%); WBCs: yes (few); Amine/Whiff test: positive A Final Panel Description: Chlamydia trachomatis rRNA [Presence] in Specimen by RADHA with probe detection Final [place] Amplified CT/GC Combo - CT 00:00:00 Negative N Final Performed by:
CDD ([id number])

Panel Description: Neisseria gonorrhoeae rRNA [Presence] in Specimen by RADHA with probe detection Final [place] Amplified CT/GC Combo - GC 00:00:00 Negative N Final : NoThis information has been disclosed to you from confidential records which are protected by law. Privacy laws prohibityou from making any further disclosure of this information without the specific written consent of the person to whom itpertains, or otherwise permitted by law. Any unauthorized further disclosure in violation of the law may result in a fineor senior living sentence or both. A general authorization for the release of medical or other information is not, except inlimited circumstances set forth in this part, sufficient authorization for further disclosure.This document contains private and confidential health information protected by state and federal law. If youhave received this document in error, please call the Tool Die Maker for CDD at ext [phone] [email or web address] [email or web address]

Performed by:
DANIELLE ([id number])

Panel Description: High Sensitivity Urine Test Fi nal High Sensitivity Urine Test 10:11:12 N egativeLot: [id number]: 04/23/2022 Final Advance Directives Directive Yes / No Effective Date File Name No Information Encounters Encounter Description Practice Location Reason(s) For Visit Diagnose s Date Provider Providers Copied on Encounter OFFICE/OUTPATIENT VISIT, NEW [facility], [address] [place], [place], [id number], [place] tel:[phone] [facility] Pelvic Pain (chief complaint) Other sex counselingHuman immunodeficien cy virus [HIV] counselingEncounter for oth general cnsl and advice on contraceptionPelvic and perineal painEncounter for test, result negativeEncntr screen for infections w sexl mode of transmissEncounter for screening for malignant neoplasm of cervixAcute vaginitis Nikki White. [address] [place], [place], [id number], . tel:[phone] Referring Provider: Cindy Jordan, [address] [place] [address], [id number]. tel:[phone] Family History Family Member Diagnosis Age At Onset No Information Immunizations Vaccine Date Status Comments No Information Payers Payer name Insurance type Covered democrat ID Authorization(s ) [facility] CI [id number] Social History Type Description Quantity Date Captured Comments Alcohol Use Details Unknown Caffeine Use Details Unknown Tobacco Use Status Never smoked tobacco Smoking Status Never smoker Sex Female Vital Signs Date / Time: Height Weight BMI Pulse Rate Blood Pressure Temperatu re Respiratory Rate Body Surface Area Head Circumference BMI percentile Pulse Ox In haled Ox 9:57 AM 62.00 in 129.40 lbs 23.67 kg/meter(2) 114/64 m m[Hg] Chief Complaint And Reason For Visit Most recent encounter only, dated '01/01/2021 09:45'. Pelvic Pain (chief complaint) Reason For Referral Reason For Referral No [...] on No Information Assessments Type Assessment Date assessment Other sex counseling assessment Human immunodeficiency virus [HIV] couns eling assessment Encounter for oth general cnsl and advic e on contraception assessment Pelvic and perineal pain assessment Encounter for test, result neg ative assessment Encntr screen for infections w sexl mode of transmiss assessment Encounter for screening for malignant ne oplasm of cervix assessment Acute vaginitis Goals Health Concern Goal Type Priority Status Date No Information Medical Equipment Description Device [employer] Device Identifier Effective Mihai es (start - stop) Status No Information Mental Status Date Cognitive Assessment No Information Health Concerns Observation Date No Information Concern Status Date No Information Physical Examination Exam Findings Details Neurological Normal Level of consciousne ss - Normal. Orientation - Normal. Genitourinary Normal Urethral meatus - No rmal. Urethra - Normal. External genitalia - Normal. Glands - Normal. Perineum - Normal. Anus - Normal. Uterus - Normal. Adnexa - Normal. Genitourinary * Vagina - bloody disc harge. Cervix - red patchy areas, ectropion and discharge. Uterus - Uterine orientation: Ant.
--- OUTSIDE RECORDS SUMMARY | 2021-02-26 07:24 | CCD | Continuity of Care Document ---
Author Author Vicky SONG [place] Organization Unknown Address [address] [place] [address] [place] [address] Phone [phone] Care Team Providers Care Garden Worker Name Role Phone [facility]M [phone] Problems Description No Information Available Social History [...] Available Procedures Date Code Description Status 12/13/2020 83701 Office/Outpatient Established Lo w MDM 20-29 Min Completed 09/20/2020 60545 Office/Outpatient Established Lo w MDM 20-29 Min [...]
--- OUTSIDE RECORDS SUMMARY | 2021-02-26 07:24 | CCD | Continuity of Care Document ---
Author Author Vicky SONG [place] Organization Unknown Address [address] [place] [address] [place] [address] Phone [phone] Care Team Providers Care Car Salter Name Role Phone [facility]M [phone] Problems Description No Information Available Social History [...] day x 5 days 10tabs J20.9 Aurora hGosh JR. 09/20/2020 - 11/16/2019 No Active Medications [...] Available Procedures Date Code Description Status 12/13/2020 01400 Office/Outpatient Established Lo w MDM 20-29 Min Completed 09/20/2020 22638 Office/Outpatient Established Lo w MDM 20-29 Min [...]
--- OUTSIDE RECORDS SUMMARY | 2021-02-26 07:24 | CCD ---
Author Author [facility] Organization [facility] Address Unknown Phone Unavailable Care Team Providers Care Lawn Service Supervisor Name Role Phone Calebdanelle Maya Unavailable PROBLEMS Type Condition ICD9-CM Code [id number] Code Onset Dates Condition S tatus W/U Status Risk SNOMED Code Notes Problem Late menses N92.6 Active confirmed 78047066 Problem Menorrhagia with regular cycle N92.0 Active confir med 993830449 Problem Nabothian cyst N88.8 Active confirmed 89943 6009 Problem Abnormal uterine bleeding (AUB) N93.9 Active confirmed 40171379433218 Problem Diffuse cystic mastopathy of left breast N60.12 Active confirmed 51580766 Problem Diffuse cystic mastopathy of right breast N60.11 Active confirmed 83791649431326789 Problem Dysmenorrhea N94.6 Active confirmed 8678018 00 Problem Encounter for surveillance of contraceptive pills Z30.41 Active confirmed 4289416 ALLERGIES No Known Allergies ENCOUNTERS from 1999 to 2020-12-07 Encounter Location Date Provider Diagnosis [facility] [address] [place] [address] [place] [address] 16 Nov, 2020 Maya Hester IMMUNIZATIONS Vaccine Route Administration Date Status Influenza 6mo & up Fluzone Unknown Feb 11, 2017 Other s Influenza 6mo & up Fluzone Unknown Nov 08, 2016 Other s Influenza 6mo & up Fluzone Unknown Dec 22, 2014 Admin istered Influenza 6mo & up Fluzone Unknown May 04, 2014 Other s SOCIAL HISTORY Tobacco Use: Social History Observation Description Date Details (start date - stop date) Never Smoker Sex Assigned At : Social History Observation Description Sex Assigned At Unknown Education: Question Answer Notes Level of Education: High School Protestant: Question Answer Notes Protestant 21 Islam Sexual Hx: Question Answer Notes Had sex in the last 12 months (vaginal, oral, or anal)? Yes LMP: 11/25/18 Have you ever had an STD? No with Men only Use protection? Yes How often? All of the time Alcohol Screening: Question Answer Notes Did you have a drink containing alcohol in the past year? No Points 0 Interpretation Negative Tobacco Use: Question Answer Notes Are you a: never smoker never smoker REASON FOR REFERRAL No Information VITAL SIGNS No information MEDICATIONS Medication SIG (Take, Route, Frequency, Duration) Notes Start Da te End Date Status Bactrim DS 800-160 MG 1 tablet Orally Twice a day for 7 day(s) Jun, Not-Taking PROCEDURES No Information RESULTS No Results REASON FOR VISIT ABNORMAL SPOTTING MEDICAL (GENERAL) HISTORY Type Description Date Medical History No chronic medical problems Surgical History T & A 2009 Surgical History Colonoscopy/EGD 04/2017 Goals Section No Information Health Concerns No Information MEDICAL EQUIPMENT No Information MENTAL STATUS No Information FUNCTIONAL STATUS No Information ASSESSMENTS No Information PLAN OF TREATMENT No Information Insurance Providers Payer Name Payer Address Payer Phone Insured Name Patient Relati onship to Insured Coverage Start Date Coverage End Date [facility] COMMUNITY PLAN [facility] [address] [facility] [address] CAITLIN MYERS self
--- OUTSIDE RECORDS SUMMARY | 2021-02-26 07:24 | CCD | Continuity of Care Document ---
Author Author Vicky DUNHAM PA-C Organization Unknown Address [address] [place] [address] [address] [place] [address] Phone [phone] Care Team Providers Care Illuminator Name Role Phone Sumit Kallie Caruso SCREEN REPAIRER [facility] [phone] Problems Description No Information Available Social History [...] Information Available Procedures Date Code Description Status 11/23/2020 55134 Office/Outpatient Established Mo d MDM 30-39 Min Completed 10/19/2020 50755 Office/Outpatient Established Lo w MDM 20-29 Min Completed 09/28/2020 02141 MRI Upper Extremity Any Joint Co mpleted 09/05/2020 06914 Office/Outpatient Established Mo d MDM 30-39 Min Completed 08/04/2020 09069 Office/Outpatient Established Mo d MDM 30-39 Min Completed Medical Devices Description No Information Available Encounters Type Date Location Provider Dx Diagnosis Office Visit 11/23/2020 8:45a Graham Dunham PA-C S6 6.812D Strain of musc/fasc/tend at wrs/hnd lv, left hand, subs Office Visit 10/19/2020 9:15a [place] Brenda Dunham PA-C S6 6.812D Strain of musc/fasc/tend at wrs/hnd lv, left hand, subs Office Visit 09/05/2020 8:45a [place] PA-C S6 7.42xD Crushing injury of left wrist and hand, subsequent encounter S56.512D Strain of extn musc/fasc/ten d at forarm lv, left arm, subs Office Visit 08/04/2020 2:00p [place] Dun[place] PA-C S6 7.42xA Crushing injury of left wrist and hand, initial encounter S56.512A Strain of extn musc/fasc/ten d at forarm lv, left arm, init Assessments Date Code Description Provider 11/23/2020 S66.812D Strain of other spec ified [...] encounter Brenda Dunham PA-C Plan of Treatment 11/23/2020 - Brenda Dunham PA-C* S66.812D Strain of other specified muscles, fascia and tendons at wrist and hand level, left hand, subsequent encounter* New Orders:* Lue EMG, Ordered: 11/23/20 * Follow up:* LUE EMG results with BMS Functional Status Description No Information Available Mental Status Description No Information Available Referrals Refer to Dr Reason for Referral Status Appt Date Judah Quezada MD MRI LT WRIST WRITTEN AUTH PASSED TO [facility]. [facility] Created [address] [facility], [place] [address] [phone] Judah Quezada MD PT LT WRIST WRITTEN AUTH PAS SED TO CHART GOING TO [place]. [facility] Created [address] [facility], [address] [address] [phone] Pauline Quezada PA-C DME LT WRIST [employer]. OK TO SUP PLY HERE. [facility] Created [facility] [place] [address] [phone]
--- OUTSIDE RECORDS SUMMARY | 2021-02-26 07:24 | CCD ---
Author Author [facility] Organization [facility] Address Unknown Phone Unavailable Care Team Providers Care Dredging Inspector Name Role Phone Melody Turk Unavailable PROBLEMS Type Condition ICD9-CM Code HOR71-AR Code Onset Dates Condition S tatus W/U Status Risk SNOMED Code Notes Problem Late menses N92.6 Active confirmed 18988919 Problem Menorrhagia with regular cycle N92.0 Active confir med 492554098 Problem Nabothian cyst N88.8 Active confirmed 53825 6009 Problem Abnormal uterine bleeding (AUB) N93.9 Active confirmed 87820992683907 Problem Diffuse cystic mastopathy of left breast N60.12 Active confirmed 20315998 Problem Diffuse cystic mastopathy of right breast N60.11 Active confirmed 39921112467018295 Problem Dysmenorrhea N94.6 Active confirmed 9285087 00 Problem Encounter for surveillance of contraceptive pills Z30.41 Active confirmed 2609035 ALLERGIES No Known Allergies ENCOUNTERS from 1999 to 2020-12-13 Encounter Location Date Provider Diagnosis [facility] [address] [place] [address] [place] [address] Nov, Melody Turk IMMUNIZATIONS Vaccine Route Administration Date Status Influenza [...] Answer Notes Level of Education: High School Nondenominational: Question Answer Notes Nondenominational 21 Nondenominational Sexual Hx: Question Answer Notes Had sex [...] Information RESULTS No Results REASON FOR VISIT btb on ocp MEDICAL (GENERAL) HISTORY Type Description Date Medical [...] Insured Coverage Start Date Coverage End Date [facility] COMM[facility] PLAN [facility] [address] [facility] [address] CAITLIN MYERS self
--- OUTSIDE RECORDS SUMMARY | 2021-02-26 07:25 | CCD ---
Author Author [facility] Organization [facility] Address Unknown Phone Unavailable Care Team Providers Care Tissue Technician Name Role Phone Ryan Dunham Unavailable Unavailable Ryan Dunham Unavailable Unavailable Ryan Dunham Unavailable Unavailable Ryan Dunham Unavailable Unavailable Ryan Dunham Unavailable Unavailable Ryan Dunham Unavailable Unavailable Ryan Dunham Unavailable Unavailable Ryan Dunham Unavailable Unavailable Ryan Dunham Unavailable Unavailable Ryan Dunham Unavailable Unavailable Ryan Dunham Unavailable Unavailable Ryan Dunham Unavailable Unavailable Ryan Dunham Unavailable Unavailable Ryan Dunham Unavailable Unavailable Dunham, M Barratt PA Unavailable [...] Unavailable Dunham, M Barratt PA Unavailable Unavailable Lawtell, J Cindy PA Unavailable Unavailable Lawtell, J Cindy PA Unavailable Unavailable Lawtell, J Cindy PA Unavailable Unavailable Lawtell, J Cindy PA Unavailable Unavailable Lawtell, J Cindy PA Unavailable Unavailable Lawtell, J Cindy PA Unavailable Unavailable Lawtell, J Cindy PA Unavailable Unavailable Lawtell, J Cindy PA Unavailable Unavailable Lawtell, J Cindy PA Unavailable Unavailable Lawtell, J Cindy PA Unavailable Unavailable Lawtell, J Cindy PA Unavailable Unavailable Lawtell, J Cindy PA Unavailable Unavailable Lawtell, J Cindy PA Unavailable Unavailable Lawtell, J Cindy PA Unavailable Unavailable Lawtell, J Cindy PA Unavailable Unavailable Lawtell, J Cindy PA Unavailable Unavailable Lawtell, J Cindy PA Unavailable Unavailable Lawtell, J Cindy PA Unavailable Unavailable Lawtell, J Cindy PA Unavailable Unavailable Lawtell, J Cindy PA Unavailable Unavailable Lawtell, J Cindy PA Unavailable Unavailable Lawtell, J Cindy PA Unavailable Unavailable GEETHA URBINA Unavailable Unavailable Maria L Cardenas MD Unavailable Unavailable Maria L Cardenas MD Unavailable Unavailable Maria L Cardenas MD Unavailable Unavailable Maria L Cardenas MD Unavailable Unavailable Maria L Cardenas MD Unavailable Unavailable Maria L Cardenas MD Unavailable Unavailable Maria L Cardenas MD Unavailable Unavailable Maria L Cardenas MD Unavailable Unavailable Maria L Cardenas MD Unavailable Unavailable Maria L Cardenas MD Unavailable Unavailable Maria L Cardenas MD Unavailable Unavailable Maria L Cardenas MD Unavailable Unavailable Maria L Cardenas MD Unavailable Unavailable Maria L Cardenas MD Unavailable Unavailable Maria L Cardenas MD Unavailable Unavailable Maria L Cardenas MD Unavailable Unavailable Maria L Cardenas MD Unavailable Unavailable Cardenas, Maria L Prajapati MD Unavailable Unavailable Cardenas, Maria L Prajapati MD Unavailable Unavailable Cardenas, Maria L Prajapati MD Unavailable Unavailable Cardenas, Maria L Prajapati MD Unavailable Unavailable Cardenas, Maria L Prajapati MD Unavailable Unavailable Cardenas, Maria L Prajapati MD Unavailable Unavailable Cardenas, Maria L Prajapati MD Unavailable Unavailable Cardenas, Maria L Prajapati MD Unavailable Unavailable Cardenas, Maria L Prajapati MD Unavailable Unavailable Cardenas, Maria L Prajapati MD Unavailable Unavailable Cardenas, Maria L Prajapati MD Unavailable Unavailable Cardenas, Maria L Prajapati MD Unavailable Unavailable Cardenas, Maria L Prajapati MD Unavailable Unavailable Cardenas, Maria L Prajapati MD Unavailable Unavailable Cardenas, Maria L Praajpati MD Unavailable Unavailable Cardenas, Maria L Prajapati MD Unavailable Unavailable Cardenas, Maria L Prajapati MD Unavailable Unavailable Cardenas, Maria L Prajapati MD Unavailable Unavailable Cardenas, Maria L Prajapati MD Unavailable Unavailable Cardenas, Maria L Prajapati MD Unavailable Unavailable Cardenas, Maria L Prajapati MD Unavailable Unavailable Cardenas, Maria L Prajapati MD Unavailable Unavailable Cardenas, Maria L Prajapati MD Unavailable Unavailable Cardenas, Maria L Prajapati MD Unavailable Unavailable Cardenas, Maria L Prajapati MD Unavailable Unavailable Cardenas, Maria L Prajapati MD Unavailable Unavailable Cardenas, Maria L Prajapati MD Unavailable Unavailable Cardenas, Maria L Prajapati MD Unavailable Unavailable [id number], [id number] Unavailable Unavailable Adrien Lion MD Unavailable Unavailable Adrien Lion MD Unavailable Unavailable Adrien Lion MD Unavailable Unavailable Adrien Lion MD Unavailable Unavailable Adrien Lion MD Unavailable Unavailable Adrien Lion MD Unavailable Unavailable Adrien Lion MD Unavailable Unavailable Adrien Lion MD Unavailable Unavailable Adrien Lion MD Unavailable Unavailable Adrien Lion MD Unavailable Unavailable Adrien Lion MD Unavailable Unavailable Adrien Lion MD Unavailable Unavailable Adrien Lion MD Unavailable Unavailable Adrien Lion MD Unavailable Unavailable Adrien Lion MD Unavailable Unavailable Adrien Lion MD Unavailable Unavailable Adrien Lion MD Unavailable Unavailable Adrien Lion MD Unavailable Unavailable Adrien Lion MD Unavailable Unavailable Adrien Lion MD Unavailable Unavailable Adrien Lion MD Unavailable Unavailable Adrien Lion MD Unavailable Unavailable Adrien Lion MD Unavailable Unavailable Adrien Lion MD Unavailable Unavailable Adrien Lion MD Unavailable Unavailable Adrien Lion MD Unavailable Unavailable Ayad, Adrien Carpenter MD Unavailable Unavailable Ayad, Adrien Carpenter MD Unavailable Unavailable Ayad, Adrien Carpenter MD Unavailable Unavailable Ayad, Adrien Carpenter MD Unavailable Unavailable Ayad, Adrien Carpenter MD Unavailable Unavailable Ayad, Adrien Carpenter MD Unavailable Unavailable Ayad, Adrien Carpenter MD Unavailable Unavailable Ayad, Adrien Carpenter MD Unavailable Unavailable Ayad, Adrien Carpenter MD Unavailable Unavailable Ayad, A Pauline RENTERIA Unavailable Unavailable Ayad, A Pauline RENTERIA Unavailable Unavailable Ayad, A Paulnie RENTERIA Unavailable Unavailable Ayad, A Pauline RENTERIA Unavailable Unavailable Ayad, A Pauline RENTERIA Unavailable Unavailable Ayad, Adrien Carpenter MD Unavailable Unavailable Ayad, Adrien Carpenter MD Unavailable Unavailable Ayad, Adrien Carpenter MD Unavailable Unavailable Ayad, A Pauline RENTERIA Unavailable Unavailable Ayad, A Pauline RENTERIA Unavailable Unavailable Ayad, A Pauline RENTERIA Unavailable Unavailable Ayad, A Pauline RENTERIA Unavailable Unavailable Ayad, A Pauilne RENTERIA Unavailable Unavailable Ayad, A Pauline RENTERIA Unavailable Unavailable Ayad, A Pauline RENTERIA Unavailable Unavailable Ayad, A Pauline RENTERIA Unavailable Unavailable Ayad, A Pauline RENTERIA Unavailable Unavailable Ayad, A Pauline RENTERIA Unavailable Unavailable Ayad, A Pauline RENTERIA Unavailable Unavailable Ayad, A Pauline RENTERIA Unavailable Unavailable Ayad, Adrien Carpenter MD Unavailable Unavailable Ayad, Adrien Carpenter MD Unavailable Unavailable Ayad, Adrien Carpenter MD Unavailable Unavailable Ayad, A Pauline RENTERIA Unavailable Unavailable Ayad, A Pauline RENTERIA Unavailable Unavailable Ayad, A Pauline RENTERIA Unavailable Unavailable Yaad, A Pauline RENTERIA Unavailable Unavailable Ayad, A Pauline RENTERIA Unavailable Unavailable Ayad, A Pauline RENTERIA Unavailable Unavailable Ayad, Adrien Carpenter MD Unavailable Unavailable Ayad, Adrien Carpenter MD Unavailable Unavailable Ayad, Adrien Carpenter MD Unavailable Unavailable Ayad, Adrien Carpenter MD Unavailable Unavailable Ayad, Adrien Carpenter MD Unavailable Unavailable Ayad, Adrien Carpenter MD Unavailable Unavailable Ayad, Adrien Carpenter MD Unavailable Unavailable Ayad, Adrien Carpenter MD Unavailable Unavailable Ayad, Adrien Carpenter MD Unavailable Unavailable Ayad, Adrien Carpenter MD Unavailable Unavailable Ayad, Adrien Carpenter MD Unavailable Unavailable Ayad, A Pauline RENTERIA Unavailable Unavailable Ayad, A Pauline RENTERIA Unavailable Unavailable Ayad, A Pauline RENTERIA Unavailable Unavailable Ayad, A Pauline RENTERIA Unavailable Unavailable Ayad, Adrien Carpenter MD Unavailable Unavailable Ayad, Adrien Carpenter MD Unavailable Unavailable Ayad, Adrien Carpenter MD Unavailable Unavailable Ayad, Adrien Carpenter MD Unavailable Unavailable Ryan Dunham Unavailable Unavailable Ryan Dunham Unavailable Unavailable Ryan Dunham Unavailable Unavailable Ryan Dunham Unavailable Unavailable Dunham, M Barratt PA Unavailable [...] Unavailable Unavailable ANDREIA, JAYLA PA Unavailable Unavailable BAR, J NEIL PA Unavailable Unavailable BAR, J NEIL PA Unavailable Unavailable BAR, J NEIL PA Unavailable Unavailable BAR, J NEIL PA Unavailable Unavailable BAR, J NEIL PA Unavailable Unavailable BAR, J NEIL PA Unavailable Unavailable BAR, J NEIL PA Unavailable Unavailable BAR, J NEIL PA Unavailable Unavailable BAR, J NEIL PA Unavailable Unavailable BAR, J NEIL PA Unavailable Unavailable BAR, J NEIL PA Unavailable Unavailable BAR, J NEIL PA Unavailable Unavailable BAR, J NEIL PA Unavailable Unavailable BAR, J NEIL PA Unavailable Unavailable BAR, J NEIL PA Unavailable Unavailable BAR, J NEIL PA Unavailable Unavailable BAR, J NEIL PA Unavailable Unavailable BAR, J NEIL PA Unavailable Unavailable BAR, J NEIL PA Unavailable Unavailable BAR, J NEIL PA Unavailable Unavailable BAR, J NEIL PA Unavailable Unavailable BAR, J NEIL PA Unavailable Unavailable BAR, J NEIL PA Unavailable Unavailable BAR, J NEIL PA Unavailable Unavailable BAR, J NEIL PA Unavailable Unavailable BAR, J NEIL PA Unavailable Unavailable BAR, J NEIL PA Unavailable Unavailable BEAGLE, SUJEY YENIFER Unavailable Unavailable Gore, Mei PRODUCT DEVELOPMENT DIRECTOR Unavailable Unavailable Gore, Mei PRODUCT DEVELOPMENT DIRECTOR Unavailable Unavailable Gore, Mei PRODUCT DEVELOPMENT DIRECTOR Unavailable Unavailable Gore, Mei PRODUCT DEVELOPMENT DIRECTOR Unavailable Unavailable Gore, Mei PRODUCT DEVELOPMENT DIRECTOR Unavailable Unavailable Gore, Mei PRODUCT DEVELOPMENT DIRECTOR Unavailable Unavailable Gore, Mei PRODUCT DEVELOPMENT DIRECTOR Unavailable Unavailable Gore, Mei PRODUCT DEVELOPMENT DIRECTOR Unavailable Unavailable Gore, Mei PRODUCT DEVELOPMENT DIRECTOR Unavailable Unavailable Gore, Mei PRODUCT DEVELOPMENT DIRECTOR Unavailable Unavailable Gore, Mei PRODUCT DEVELOPMENT DIRECTOR Unavailable Unavailable Gore, Mei PRODUCT DEVELOPMENT DIRECTOR Unavailable Unavailable Gore, Mei PRODUCT DEVELOPMENT DIRECTOR Unavailable Unavailable Gomez, Darek Unavailable Unavailable Gomez, Darek Unavailable Unavailable Gomez, Darek Unavailable Unavailable Gomez, Darek Unavailable Unavailable Gomez, Darek Unavailable Unavailable Gomez, Darek Unavailable Unavailable Gomez, Darek Unavailable Unavailable Gomez, Darek Unavailable Unavailable Gomez, Darek Unavailable Unavailable Gomez, Darek Unavailable Unavailable Gomez, Darek Unavailable Unavailable Gomez, Darek Unavailable Unavailable Gomez, Darek Unavailable Unavailable Gomez, Darek Unavailable Unavailable Gomez, Darek Unavailable Unavailable Gomez, Darek Unavailable Unavailable Gomez, Darek Unavailable Unavailable Gomez, Darek Unavailable Unavailable Gomez, Darek Unavailable Unavailable Gomez, Darek Unavailable Unavailable Gomez, Darek Unavailable Unavailable Gomez, Darek Unavailable Unavailable Gomez, Darek Unavailable Unavailable Gomez, Darek Unavailable Unavailable Gomez, Darek Unavailable Unavailable Gomez, Darek Unavailable Unavailable Gomez, Darek Unavailable Unavailable Gomez, Darek Unavailable Unavailable Gomez, Darek Unavailable Unavailable Gomez, Darek Unavailable Unavailable Gomez, Darek Unavailable Unavailable Gomez, Darek Unavailable Unavailable Gomez, Darek Unavailable Unavailable Gomez, Darek Unavailable Unavailable Gomez, Darek Unavailable Unavailable Gomez, Darek Unavailable Unavailable Gomez, Darek Unavailable Unavailable Gomez, Darek Unavailable Unavailable Gomez, Darek Unavailable Unavailable Gomez, Darek Unavailable Unavailable Gomez, Darek Unavailable Unavailable Gomez, Darek Unavailable Unavailable Gomez, Darek Unavailable Unavailable Gomez, Darek Unavailable Unavailable Gomez, Darek Unavailable Unavailable Sumit, Katarina Kallie ANP-BC Unavailable Unavailable Sumit, Katarina Kallie ANP-BC Unavailable Unavailable Sumit, Katarina Kallie ANP-BC Unavailable Unavailable Sumit, Katarina Kallie ANP-BC Unavailable Unavailable Sumit, Katarina Kallie ANP-BC Unavailable Unavailable Sumit, Katarina Kallie ANP-BC Unavailable Unavailable Sumit, Katarina Kallie ANP-BC Unavailable Unavailable Sumit, Katarina Kallie ANP-BC Unavailable Unavailable Sumit, Katarina Kallie ANP-BC Unavailable Unavailable Sumit, Katarina Kallie ANP-BC Unavailable Unavailable Sumit, Katarina Kallie ANP-BC Unavailable Unavailable Sumit, Katarina Kallie ANP-BC Unavailable Unavailable Sumit, Katarina Kallie ANP-BC Unavailable Unavailable Sumit, Katarina Kallie ANP-BC Unavailable Unavailable Sumit, Katarina Kallie ANP-BC Unavailable Unavailable Sumit, Katarina Kallie ANP-BC Unavailable Unavailable Sumit, Katarina Kallie ANP-BC Unavailable Unavailable Sumit, Katarina Kallie ANP-BC Unavailable Unavailable Sumit, Katarina Kallie ANP-BC Unavailable Unavailable Sumit, Katarina Kallie ANP-BC Unavailable Unavailable Sumit, Katarina Kallie ANP-BC Unavailable Unavailable Sumit, Katarina Kallie ANP-BC Unavailable Unavailable Sumit, Katarina Kallie ANP-BC Unavailable Unavailable Sumit, Katarina Kallie ANP-BC Unavailable Unavailable Sumit, Katarina Kallie ANP-BC Unavailable Unavailable Sumit, Katarina Kallie ANP-BC Unavailable Unavailable Sumit, Katarina Kallie ANP-BC Unavailable Unavailable Sumit, Katarina Kallie ANP-BC Unavailable Unavailable Sumit, Katarina Kallie ANP-BC Unavailable Unavailable Sumit, Katarina Kallie ANP-BC Unavailable Unavailable Sumit, Katarina Kallie ANP-BC Unavailable Unavailable Sumit, Katarina Kallie ANP-BC Unavailable Unavailable Sumit, Katarina Kallie ANP-BC Unavailable Unavailable Sumit, Katarina Kallie ANP-BC Unavailable Unavailable Sumit, Katarina Kallie ANP-BC Unavailable Unavailable Sumit, Katarina Kallie ANP-BC Unavailable Unavailable Sumit, Katarina Kallie ANP-BC Unavailable Unavailable Sumit, Katarina Kallie ANP-BC Unavailable Unavailable Sumit, Katarina Kallie ANP-BC Unavailable Unavailable Sumit, Katarina Kallie ANP-BC Unavailable Unavailable Sumit, Katarina Kallie ANP-BC Unavailable Unavailable Sumit, Katarina Kallie ANP-BC Unavailable Unavailable Sumit, Katarina Kallie ANP-BC Unavailable Unavailable Sumit, Katarina Kallie ANP-BC Unavailable Unavailable Sumit, Katarina Kallie ANP-BC Unavailable Unavailable Sumit, Katarina Kallie ANP-BC Unavailable Unavailable Sumit, Katarina Kallie ANP-BC Unavailable Unavailable Sumit, Katarina Kallie ANP-BC Unavailable Unavailable Sumit, Katarina Kallie ANP-BC Unavailable Unavailable Sumit, Katarina Kallie ANP-BC Unavailable Unavailable Sumit, Katarina Kallie ANP-BC Unavailable Unavailable Sumit, Katarina Kallie ANP-BC Unavailable Unavailable Sumit, Katarina Kallie ANP-BC Unavailable Unavailable Sumit, Katarina Kallie ANP-BC Unavailable Unavailable Sumit, Katarina Kallie ANP-BC Unavailable Unavailable Sumit, Katarina Kallie ANP-BC Unavailable Unavailable Sumit, Katarina Kallie ANP-BC Unavailable Unavailable Sumit, Katarina Kallie ANP-BC Unavailable Unavailable Sumit, Katarina Kallie ANP-BC Unavailable Unavailable Sumit, Katarina Kallie ANP-BC Unavailable Unavailable Sumit, Katarina Kallie ANP-BC Unavailable Unavailable Sumit, Katarina Kallie ANP-BC Unavailable Unavailable Sumit, Katarina Kallie ANP-BC Unavailable Unavailable Sumit, Katarina Kallie ANP-BC Unavailable Unavailable Sumit, Katarina Akllie ANP-BC Unavailable Unavailable Sumit, Katarina Kallie ANP-BC Unavailable Unavailable LETTIERE, A HARRIET PA Unavailable Unavailable LETTIERE, A HARRIET PA Unavailable Unavailable LETTIERE, A HARRIET PA Unavailable Unavailable LETTIERE, A HARRIET PA Unavailable Unavailable LETTIERE, A HARRIET PA Unavailable Unavailable LETTIERE, A HARRIET PA Unavailable Unavailable LETTIERE, A HARRIET PA Unavailable Unavailable LETTIERE, A HARRIET PA Unavailable Unavailable LETTIERE, A HARRIET PA Unavailable Unavailable LETTIERE, A HARRIET PA Unavailable Unavailable LETTIERE, A HARREIT PA Unavailable Unavailable LETTIERE, A HARRIET PA Unavailable Unavailable LETTIERE, A HARRIET PA Unavailable Unavailable LETTIERE, A HARRIET PA Unavailable Unavailable LETTIERE, A HARRIET PA Unavailable Unavailable LETTIERE, A HARRIET PA Unavailable Unavailable LETTIERE, A HARRIET PA Unavailable Unavailable LETTIERE, A HARRIET PA Unavailable Unavailable LETTIERE, A HARRIET PA Unavailable Unavailable LETTIERE, A HARRIET PA Unavailable Unavailable LETTIERE, A HARRIET PA Unavailable Unavailable LETTIERE, A HARRIET PA Unavailable Unavailable LETTIERE, A HARRIET PA Unavailable Unavailable LETTIERE, A HARRIET PA Unavailable Unavailable LETTIERE, A HARRIET PA Unavailable Unavailable LETTIERE, A HARRIET PA Unavailable Unavailable LETTIERE, A HARRIET PA Unavailable Unavailable LETTIERE, A HARRIET PA Unavailable Unavailable LETTIERE, A HARRIET PA Unavailable Unavailable LETTIERE, A HARRIET PA Unavailable Unavailable LETTIERE, A HARRIET PA Unavailable Unavailable Wilsie, A Jaylin NURSES' AIDE Unavailable Unavailable Nevills, C Pauline PRODUCT DEVELOPMENT DIRECTOR Unavailable Unavailable Nevills, C Pauline PRODUCT DEVELOPMENT DIRECTOR Unavailable Unavailable Nevills, C Pauline PRODUCT DEVELOPMENT DIRECTOR Unavailable Unavailable Nevills, C Pauline PRODUCT DEVELOPMENT DIRECTOR Unavailable Unavailable Nevills, C Pauline PRODUCT DEVELOPMENT DIRECTOR Unavailable Unavailable Nevills, C Pauline PRODUCT DEVELOPMENT DIRECTOR Unavailable Unavailable Nevills, C Pauline PRODUCT DEVELOPMENT DIRECTOR Unavailable Unavailable Nevills, C Pauline PRODUCT DEVELOPMENT DIRECTOR Unavailable Unavailable Nevills, C Pauline PRODUCT DEVELOPMENT DIRECTOR Unavailable Unavailable Nevills, C Pauline PRODUCT DEVELOPMENT DIRECTOR Unavailable Unavailable Nevills, C Pauline PRODUCT DEVELOPMENT DIRECTOR Unavailable Unavailable Nevills, C Pauline PRODUCT DEVELOPMENT DIRECTOR Unavailable Unavailable Nevills, C Pauline PRODUCT DEVELOPMENT DIRECTOR Unavailable Unavailable Nevills, C Pauline PRODUCT DEVELOPMENT DIRECTOR Unavailable Unavailable Nevills, C Pauline PRODUCT DEVELOPMENT DIRECTOR Unavailable Unavailable Nevills, C Pauline PRODUCT DEVELOPMENT DIRECTOR Unavailable Unavailable Nevills, C Pauline PRODUCT DEVELOPMENT DIRECTOR Unavailable Unavailable Nevills, C Pauline PRODUCT DEVELOPMENT DIRECTOR Unavailable Unavailable Nevills, C Pauline PRODUCT DEVELOPMENT DIRECTOR Unavailable Unavailable Nevills, C Pauline PRODUCT DEVELOPMENT DIRECTOR Unavailable Unavailable Nevills, C Pauline PRODUCT DEVELOPMENT DIRECTOR Unavailable Unavailable Nevills, C Pauline PRODUCT DEVELOPMENT DIRECTOR Unavailable Unavailable Nevills, C Pauline PRODUCT DEVELOPMENT DIRECTOR Unavailable Unavailable Nevills, C Pauline PRODUCT DEVELOPMENT DIRECTOR Unavailable Unavailable Nevills, C Pauline PRODUCT DEVELOPMENT DIRECTOR Unavailable Unavailable Nevills, C Pauline PRODUCT DEVELOPMENT DIRECTOR Unavailable Unavailable Nevills, C Pauline PRODUCT DEVELOPMENT DIRECTOR Unavailable Unavailable Nevills, C Pauline PRODUCT DEVELOPMENT DIRECTOR Unavailable Unavailable Nevills, C Pauline PRODUCT DEVELOPMENT DIRECTOR Unavailable Unavailable Nevills, C Pauline PRODUCT DEVELOPMENT DIRECTOR Unavailable Unavailable Nevills, C Pauline PRODUCT DEVELOPMENT DIRECTOR Unavailable Unavailable Nevills, C Pauline PRODUCT DEVELOPMENT DIRECTOR Unavailable Unavailable Nevills, C Pauline PRODUCT DEVELOPMENT DIRECTOR Unavailable Unavailable Nevills, C Pauline PRODUCT DEVELOPMENT DIRECTOR Unavailable Unavailable HOUGH, G EDWARD RPA Unavailable Unavailable HOUGH, G EDWARD RPA Unavailable Unavailable HOUGH, G EDWARD RPA Unavailable Unavailable HOUGH, G EDWARD RPA Unavailable Unavailable HOUGH, G EDWARD RPA Unavailable Unavailable HOUGH, G EDWARD RPA Unavailable Unavailable HOUGH, G EDWARD RPA Unavailable Unavailable HOUGH, G EDWARD RPA Unavailable Unavailable HOUGH, G EDWARD RPA Unavailable Unavailable HOUGH, G EDWARD RPA Unavailable Unavailable HOUGH, G EDWARD RPA Unavailable Unavailable HOUGH, G EDWARD RPA Unavailable Unavailable HOUGH, G EDWARD RPA Unavailable Unavailable HOUGH, G EDWARD RPA Unavailable Unavailable HOUGH, G EDWARD RPA Unavailable Unavailable HOUGH, G EDWARD RPA Unavailable Unavailable HOUGH, G EDWARD RPA Unavailable Unavailable HOUGH, G EDWARD RPA Unavailable Unavailable HOUGH, G EDWARD RPA Unavailable Unavailable HOUGH, G EDWARD RPA Unavailable Unavailable HOUGH, G EDWARD RPA Unavailable Unavailable HOUGH, G EDWARD RPA Unavailable Unavailable HOUGH, G EDWARD RPA Unavailable Unavailable HOUGH, G EDWARD RPA Unavailable Unavailable HOUGH, G EDWARD RPA Unavailable Unavailable HOUGH, G EDWARD RPA Unavailable Unavailable HOUGH, G EDWARD RPA Unavailable Unavailable HOUGH, G EDWARD RPA Unavailable Unavailable HOUGH, G EDWARD RPA Unavailable Unavailable HOUGH, G EDWARD RPA Unavailable Unavailable HOUGH, G EDWARD RPA Unavailable Unavailable HOUGH, G EDWARD RPA Unavailable Unavailable HOUGH, G EDWARD RPA Unavailable Unavailable HOUGH, G EDWARD RPA Unavailable Unavailable HOUGH, G EDWARD RPA Unavailable Unavailable HOUGH, G EDWARD RPA Unavailable Unavailable HOUGH, G EDWARD RPA Unavailable Unavailable Sumit, Katarina Kallie ANP-BC Unavailable Unavailable Sumit, Katarina Kallie ANP-BC Unavailable Unavailable Sumit, Katarina Kallie ANP-BC Unavailable Unavailable Sumit, Katarina Kallie ANP-BC Unavailable Unavailable Sumit, Katarina Kallie ANP-BC Unavailable Unavailable Sumit, Katarina Kallie ANP-BC Unavailable Unavailable Sumit, Katarina Kallie ANP-BC Unavailable Unavailable Sumit, Katarina Kallie ANP-BC Unavailable Unavailable Sumit, Katarina Kallie ANP-BC Unavailable Unavailable Sumit, Katarina Kallie ANP-BC Unavailable Unavailable Sumit, Katarina Kallie ANP-BC Unavailable Unavailable Sumit, Katarina Kallie ANP-BC Unavailable Unavailable Sumit, Katarina Kallie ANP-BC Unavailable Unavailable Sumit, Katarina Kallie ANP-BC Unavailable Unavailable Sumit, Katarina Kallie ANP-BC Unavailable Unavailable Sumit, Katarina Kallie ANP-BC Unavailable Unavailable Sumit, Katarina Kallie ANP-BC Unavailable Unavailable Sumit, Katarina Kallie ANP-BC Unavailable Unavailable Sumit, Katarina Kallie ANP-BC Unavailable Unavailable Sumit, Katarina Kallie ANP-BC Unavailable Unavailable Sumit, Katarina Kallie ANP-BC Unavailable Unavailable Sumit, Katarina Kallie ANP-BC Unavailable Unavailable Sumit, Katarina Kallie ANP-BC Unavailable Unavailable Sumit, Katarina Kallie ANP-BC Unavailable Unavailable Sumit, Katarina Kallie ANP-BC Unavailable Unavailable Sumit, Katarina Kallie ANP-BC Unavailable Unavailable Sumit, Katarina Kallie ANP-BC Unavailable Unavailable Sumit, Katarina Kallie ANP-BC Unavailable Unavailable Sumit, Katarina Kallie ANP-BC Unavailable Unavailable Sumit, Katarina Kallie ANP-BC Unavailable Unavailable Sumit, Katarina Kallie ANP-BC Unavailable Unavailable Sumit, Katarina Kallie ANP-BC Unavailable Unavailable Sumit, Katarina Kallie ANP-BC Unavailable Unavailable Sumit, Katarina Kallie ANP-BC Unavailable Unavailable Sumit, Katarina Kallie ANP-BC Unavailable Unavailable Sumit, Katarina Kallie ANP-BC Unavailable Unavailable Sumit, Katarina Kallie ANP-BC Unavailable Unavailable Sumit, Katarina Kallie ANP-BC Unavailable Unavailable Sumit, Katarina Kallie ANP-BC Unavailable Unavailable Sumit, Katarina Kallie ANP-BC Unavailable Unavailable Sumit, Katarina Kallie ANP-BC Unavailable Unavailable Sumit, Katarina Kallie ANP-BC Unavailable Unavailable Sumit, Katarina Kallie ANP-BC Unavailable Unavailable Sumit, Katarina Kallie ANP-BC Unavailable Unavailable Sumit, Katarina Kallie ANP-BC Unavailable Unavailable Sumit, Katarina Kallie ANP-BC Unavailable Unavailable Sumit, Katarina Kallie ANP-BC Unavailable Unavailable Sumit, Katarina Kallie ANP-BC Unavailable Unavailable Sumit, Katarina Kallie ANP-BC Unavailable Unavailable Sumit, Katarina Kallie ANP-BC Unavailable Unavailable Sumit, Katarina Kallie ANP-BC Unavailable Unavailable Sumit, Katarina Kallie ANP-BC Unavailable Unavailable Sumit, Katarina Kallie ANP-BC Unavailable Unavailable Sumit, Katarina Kallie ANP-BC Unavailable Unavailable Sumit, Katarina Kallie ANP-BC Unavailable Unavailable Sumit, Katarina Kallie ANP-BC Unavailable Unavailable Sumit, Katarina Kallie ANP-BC Unavailable Unavailable Sumit, Katarina Kallie ANP-BC Unavailable Unavailable Sumit, Katarina Kallie ANP-BC Unavailable Unavailable Sumit, Katarina Kallie ANP-BC Unavailable Unavailable Sumit, Katarina Kallie ANP-BC Unavailable Unavailable Sumit, Katarina Kallie ANP-BC Unavailable Unavailable Sumit, Katarina Kallie ANP-BC Unavailable Unavailable Sumit, Katarina Kallie ANP-BC Unavailable Unavailable Sumit, Katarina Kallie ANP-BC Unavailable Unavailable Sumit, Katarina Kallie ANP-BC Unavailable Unavailable Re-disclosure Warning [...] is protected by Article 27-F of the [facility] Public Health law. If you continue you may have access to information: Regarding HIV / AIDS; Provided by facilities licensed or operated by the [facility] Office of Mental Health; or Provided by the [facility] Office for People With Developmental Disabilities. If such information is present, then the following [facility] mandated warning applies: This information has been [...] law may result in a fine or snf sentence or both. A general authorization for the release of medical or other information is NOT sufficient authorization for further disc losure. Family History Family Member Name Family Member Gender Family Member Status Date o f Status Description Data Source(s) Unknown Male Problem MEDENT ([facility]) Encounters Encounter Providers Location Date Indications Data Source(s ) Outpatient Attender: Brenda NEGRETE Physical Therapy 02:45:00 PM EST MEDENT ([facility]) Outpatient Attender: Brenda Dunham PAConsultant: Pauline dickerson PRODUCT DEVELOPMENT DIRECTOR 02/06/2021 07:02:00 AM EST - 02/06/2021 08:02:00 AM EST [facility] Patient discharged. Outpatient Attender: HARRIET stevens 01/23/2021 08:35:00 AM EDT [facility] ([facility]) Attender: Pauline Stevenson 11:50:00 AM EDT - 01/18/2021 11:50:00 AM EDT [facility] ([facility]) Attender: Pauline Stevenson 01:28:00 PM EDT - 01/16/2021 01:28:00 PM EDT [facility] ([facility]) Outpatient Attender: Brenda NEGRETE Physical Therapy 01:15:00 PM EDT MEDENT ([facility]) Attender: Cindy Lewis 01/15 10:13:00 AM EDT - 01/15/2021 10:13:00 AM EDT [facility] ([facility]) Outpatient Attender: Darek Gomez Physical Therapy 01/04/2021 02:30:0 0 PM EDT MEDENT ([facility]) OutpatientOFFICE/OUTPATIENT VISIT, NEW Attender: Cindy Lewis 01/01/2021 09:45:00 AM EDT - 01/01/2021 09:45:00 AM ED T Acute vaginitisEncounter for screening for malignant neoplasm of cervixEncntr screen for infections w sexl mode of transmissEncounter for test, result negativePelvic and perineal painEncounter for oth general cnsl and advice on contraceptionHuman immunodeficiency virus [HIV] counselingOther sex counseling Next[facility] ([facility]) Acute vaginitis Encounter for screening for malignant ne oplasm of cervix Encntr screen for infections w sexl mode of transmiss Encounter for test, result neg ative Pelvic and perineal pain Encounter for oth general cnsl and advic e on contraception Human immunodeficiency virus [HIV] couns eling Other sex counseling Outpatient Attender: HARRIET Schwab rodney 12/13/2020 10:25:00 AM EDT [facility] ([facility]) Unknown [address] [facility] [address] 12/13/2020 12:00:00 AM EDT eCW1 ([facility]) Outpatient Attender: ABHISHEK HOUGH RPA 12/11 08:22:46 AM EDT - 12/11/2020 10:39:55 AM EDT DocuTap ([facility] ) Unknown [address] [facility] [address] 12/07/2020 12:00:00 AM EDT eCW1 ([facility]) Outpatient Attender: Brenda NEGRETE Physical Therapy 08:45:00 AM EDT MEDENT ([facility]) Recurring Patient Referrer: Kallie ROSE-JEANNIE 11/02/2020 1 2:03:13 PM EDT [facility] Recurring Patient Referrer: Brenda NEGRETE 11/02/2020 11:50:37 AM EDT [facility] OFFICE OUTPATIENT VISIT 15 MINUTES Attender: Brenda NEGRETE Physical Therapy 10/19/2020 09:15:00 AM EDT MEDENT ([facility]) Outpatient Attender: YENIFER Mason nder: GEETHA URBINAConsultant: Victorina Cardenas MD 09/29/2020 12:52:00 PM EDT - 09/29/2020 12:52:00 PM EDT [facility] Unknown [address] [facility] [address] 09/27/2020 12:00:00 AM EDT eCW1 ([facility]) Outpatient Attender: HARRIET stevens 09/20/2020 12:00:00 PM EDT [facility] ([facility]) Outpatient Attender: NEIL BAR PAConsultant: Victorina Cardenas MD 09/15/2020 04:48:00 PM EDT - 09/15/2020 04:48:00 PM EDT [facility] Outpatient Attender: [id number] 09/15/2020 02:00:00 PM EDT [facility] ([facility]) Outpatient Attender: YENIFER Harringtonant: Victorina beltrán MD 09/15/2020 01:04:00 PM EDT - 09/15/2020 01:04:00 PM EDT [facility] Outpatient Attender: Brenda NEGRETE Physical Therapy 08:45:00 AM EDT MEDENT ([facility]) Outpatient Attender: YENIFER Harringtonant: Victorina beltrán MD 08/25/2020 12:51:00 PM EDT - 08/25/2020 12:51:00 PM EDT [facility] (WC 20ESGYN) WCenter 20 Min Est Geotechnicial Properties Technician [address] [place] [address] 08/10/2020 12:00:00 AM EDT eCW1 ([facility]) Outpatient Attender: Brenda NEGRETE Physical Therapy 02:00:00 PM EDT MEDENT ([facility]) Outpatient Attender: Jaylin Shultz LMSWConsultant: Sonal Cardenas MD 07/26/2020 09:58:00 AM EDT - 07/26/2020 09:58:00 AM EDT [facility] Outpatient Attender: JAYLA burns 06/04/2020 01:10:00 PM EDT [facility] ([facility]) Outpatient [address] [facility] [address] 04/24/2020 12:00:00 AM EST eCW1 ([facility]) Outpatient Attender: Kallie OVALLEBCConsultant: Victorina Cardenas MD 03/31/2020 02:08:35 PM EST [facility] OFFICE OUTPATIENT VISIT 15 MINUTES Attender: Brenda NEGRETE Physical Therapy 03/28/2020 12:30:00 PM EST MEDENT ([facility]) OFFICE OUTPATIENT VISIT 15 MINUTES Attender: Brenda NEGRETE Physical Therapy 02/28/2020 08:00:00 AM EST MEDENT ([facility]) Outpatient Attender: Kallie WILLISonsultant: Victorina Cardenas MD 01/25/2020 03:16:00 PM EST - 01/25/2020 03:16:00 PM EST [facility] Outpatient Attender: Mei agudelo 01/14/2020 07:10:00 PM EDT [facility] ([facility]) Medications Medication Brand Name Start Date Product Form Dose Route Admi nistrative Instructions Pharmacy Instructions Status Indications Reaction Description Data Source(s) tizanidine 4 MG Oral Tablet Tizanidine HCL 02/13/2021 12:00:00 AM EST ORAL active MEDENT ([facility] Ketorolac Tromethamine 5 MG/ML Ophthalmic Solution Ketorolac Tromethamine 01/23/2021 12:00:00 AM EDT active MEDENT ([facility]) Tobramycin 3 MG/ML Ophthalmic Solution Tobramycin 01/23/2021 12:0 0:00 AM EDT active MEDENT ([facility]) Metronidazole 500 MG Oral Tablet metronidazole 500 mg tablet metronidazole 500 mg tablet 01/01/2021 12:00:00 AM EDT active 1 tab po bid x 7d (#14) NextGen ([facility]) Metronidazole 500 MG Oral Tablet METRONIDAZOLE 01/01/2021 12:0 0:00 AM EDT tablet 14 TAKE ONE TABLET BY MOUTH TWICE A DAY FOR 7 DAYS TAKE ONE TABLET BY MOUTH TWICE A DAY FOR 7 DAYS SOLD: 01/01/2021 [facility] 200 ACTUAT Albuterol 0.09 MG/ACTUAT Metered Dose Inhaler [Pr oAir] Proair HFA 12/13/2020 12:00:00 AM EDT RESPIRATORY completed MEDENT ([facility]) Amoxicillin 875 MG Oral Tablet Amoxicillin 09/20/2020 12:00:00 AM EDT completed MEDENT ([facility]) Prednisone 20 MG Oral Tablet Prednisone 09/20/2020 12:00:00 AM EDT completed MEDENT ([facility]) No Active Medications 09/15/2020 12:00:00 AM EDT active MEDENT ([facility]) No Active Medications 06/18/2020 12:00:00 AM EDT completed MEDENT ([facility]) Fluticasone Propionate Fluticasone Propionate 06/04/2020 12:00:[address] completed [facility] ([facility]) 12 HR Pseudoephedrine Hydrochloride 120 MG Extended Re lease Oral Tablet Sinus 12 Hour 06/04/2020 12:00:00 AM EST completed MEDENT ([facility]) Fluticasone Propionate Fluticasone Propionate 06/04/2020 12:00:[address] completed MED[facility] ([facility]) 12 HR Pseudoephedrine Hydrochloride 120 MG Extended Re lease Oral Tablet Pseudoephedrine HCL ER 06/04/2020 12:00:00 AM EST ORAL completed MEDENT ([facility]) No Active Medications 06/04/2020 12:00:00 AM EST completed MED[facility] ([facility]) Enskyce Enskyce 06/01/2020 12:00:00 AM EST complet ed MEDENT ([facility]) Paroxetine HCL Paroxetine HCL 01/25/2020 12:00:00 AM EST ORAL active [facility] ([facility]) Prednisone 20 MG Oral Tablet Prednisone 01/15/2020 12:00:00 AM EDT completed MED[facility] ([facility]) Prednisone 20 MG Oral Tablet Prednisone 01/14/2020 12:00:00 AM EDT completed [facility] ([facility]) Mirtazapine 7.5 MG Oral Tablet Mirtazapine 09/02/2019 12:00:00 AM EDT ORAL completed MEDENT ([facility]) Insurance Providers Payer name Policy type / Coverage type Policy ID Covered alliance party ID Covered alliance party's relationship to mcbride Policy Mcbride Plan Information Medicaid-Pcap Medicaid [id number] Family Dependent [id number] Medicaid-Pcap Medicaid [id number] Family Dependent Medicaid-Pcap Medicaid [id number] Family Dependent [id number] Medicaid-Pcap Medicaid [id number] Family Dependent [id number] Medicaid-Pcap Medicaid [id number] Family Dependent [id number] Medicaid-Pcap Medicaid [id number] Family Dependent [id number] Medicaid-Pcap Medicaid [id number] Family Dependent [id number] Medicaid-Pcap Medicaid [id number] Family Dependent [id number] [place] Medig[place] Part B [id number] Family Dependent [id number] [place] [id number] Self Pupil Benefits (pr) Commercial [id number] Self Pupil Benefits (pr) Commercial [id number] Family Dependent [id number] Hmo Blue Option Health Maintenance Organization (HMO) [id number] 09 [id number] Family Dependent [id number] Hmo [employer] Health Maintenance Organization (HMO) [id number] Family Dependent [id number] Hmo [employer] Health Maintenance Organization (HMO) [id number] Family Dependent Hmo [employer] Option Health Maintenance Organization (HMO) [id number] 09 [id number] Family Dependent [id number] Hmo [employer] Health Maintenance Organization (HMO) [id number] Family Dependent [id number] Hmo [employer] Health Maintenance Organization (HMO) [id number] Family Dependent [id number] Hmo [employer] Health Maintenance Organization (HMO) [id number] 09 [id number] Family Dependent [id number] Hmo [employer] Health Maintenance Organization (HMO) [id number] 09 [id number] Family Dependent [id number] Medicaid Dental S [id number] [facility] Community Plan Health Maintenance Organization (HMO) [id number] Self [id number] [facility] Community Plan Health Maintenance Organization (HMO) [id number] Self [id number] [facility] I [id number] Self [id number] [facility] Community Plan Health Maintenance Organization (HMO) [id number] Family Dependent [facility] Community Plan Medigap Part B [id number] Self [id number] [facility] Community Plan Medigap Part B [id number] Family Dependen t [id number] [facility] Community Plan Medigap Part B [id number] Self [id number] [facility] B [id number] Self [id number] [facility] I [id number] Self [id number] Medicaid-Pcap Medicaid [id number] 5.0 Self [id number] Medicaid-Pcap Medicaid [id number] 5.0 Self [id number] Medicaid-Pcap Medicaid [id number] [id number] [id number] Self [id number] Medicaid-Pcap Medicaid [id number] [id number] 5.0 Self [id number] Medicaid-Pcap Medicaid [id number] [id number] [id number] Self [id number] Medicaid-Pcap Medicaid [id number] [id number] [id number] Self [id number] MEDICAID [id number] SP [id number] Medicaid-Pcap Medicaid [id number] [id number] [id number] Self [id number] MVP [id number] Self [id number] Managed Care Health Maintenance Organization (HMO) [id number] Self [id number] [facility] Managed Care Health Maintenance Organization (HMO) [id number] Self [id number] [facility] Care Health Maintenance Organization ([facility] [id number] Self [id number] [facility] Care Health Maintenance Organization ([facility]) [id number] Self [id number] [facility] Care Health Maintenance Organization ([facility]) [id number] Self [id number] [facility] I [id number] Self [id number] [employer] (WC[place] [id number] Self TA [id number] Guard Ins (WC) Workers [place] TA [id number] Self TA [id number] [facility] Health Maintenance Organization ([facility]) [id number] Self [id number] [facility] [id number] Self [id number] [facility] I [id number] Self [id number] [facility] [employer] [id number] Self [id number] [place] 2 [id number] SELF [id number] ANSI-Not a Secondary Insurance [id number] ANSI-Not a Secondary Insurance [id number] [facility] [id number] MVP MCDO [id number] SP [id number] ANSI-Medicaid [id number] [facility] COMMUNITY PLAN MCDO [id number] SP [id number] ANSI-Medicaid [id number] [facility] Communty Plan Medicaid [id number] Self [id number] [facility] COMMUNITY PLAN XIX [id number] 18 [id number] D Managed Care [facility] P [id number] S [id number] [facility] HEALTH CARE O [id number] S [id number] Self Pay P [id number] S [id number] MICHAEL GALLOWAY WORKER COMP [id number] SP [id number] [facility] Communty Plan Medicaid [id number] Self [id number] [facility] MEDICAID HMO -O/P [id number] 18 [id number] [facility] Health Maintenance Organization (HMO) [id number] Self [id number] [facility] COMMUNTY PLAN [id number] 18 [id number] ANSI-Medicaid [id number] HMO BLUE [id number] SP [id number] [facility] Communty Plan Medicaid [id number] Self [id number] MEDICAID [place] [id number] S [id number] [facility] HMO [id number] S [id number] [facility]Community [facility] Health Maintenance Organization (O) [id number] Self [id number] MVP [id number] [id number] SP [id number] Medicaid S UNAVAILABLE S UNAVAILA BLE Managed Care - MVP P UNAVAILABLE S UNAVAILABLE UNHC COMMUNITY PLAN XIX [id number] 18 [id number] [facility] HEALTH CARE O [id number] S [id number] [facility] COMMUNITY PLAN MCDO [id number] SP [id number] [facility] [id number] S [id number] MEDICAID M [id number] S [id number] MEDICAID [id number] SP [id number] [facility] O [id number] S [id number] [facility] O [id number] S [id number] [facility] HMO [id number] S [id number] [facility] HMO [id number] S [id number] [facility] O [id number] S [id number] [facility](MCAID) O [id number] S [id number] EMEDNY [id number] SP [id number] [facility] COMMUNTY PLAN [id number] 18 [id number] [facility] COMMUNITY PLAN [place] [id number] 18 [id number] UNHC COMMUNITY PLAN MCDO [id number] SP [id number] [facility](MCAID) O [id number] S [id number] MEDICAID -RECURRING [id number] MICHAEL GALLOWAY -O/P CAITLIN BRANCATELLA 18 CAITLIN BRANCATELLA MVP/Hmo Health Maintenance Organization (HMO) [id number] Self [id number] MVP/Hmo Health Maintenance Organization (HMO) [id number] 1 [id number] Self [id number] D [facility] [id number] S [id number] UN AMERICHOICE XIX -[facility] [id number] 18 [id number] ANSI-Not a Secondary Insurance [id number] [facility] [id number] SP [id number] [facility] [id number] SP [id number] [facility]/o Health Maintenance Organization (HMO) [id number] Self [id number] [facility] [id number] S [id number] [employer] INSURANCE [id number] S [id number] [employer] HEALTH STRATEGIES [id number] S [id number] Problems, Conditions, and Diagnoses Code Display Name Description Problem Type Effective Dates Data Source(s) M542 Cervicalgia Cervicalgia Diagnosis 02/06/2021 07:02:00 AM [facility] F5000 Anorexia nervosa, unspecified Anorexia nervosa, unspec ified Diagnosis 09/15/2020 04:48:00 PM EDT [facility] F438 Other reactions to severe stress Other reactions to severe stress Diagnosis 09/15/2020 04:48:00 PM EDT [facility] 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 01/25/2020 03:16:00 PM [facility] F419 Anxiety disorder, unspecified Anxiety disorder, unspec ified Diagnosis 01/25/2020 03:16:00 PM [facility] F330 Major depressive disorder, recurrent, mi ld Major depressive disorder, recurrent, mild Diagnosis 01/25/2020 03:16:00 PM [facility] [id number] Atypical squamous cells of u ndetermined significance on cervical Papanicolaou smear Atypical squamous cells of undetermined significance on cervical Papanicolaou smear Problem 01/01/2021 12:00:00 AM EDT Next [facility] ([facility]) N93.9 [id number] Abnormal uterine bleeding (AUB) Problem 08/10/2020 12:00:00 AM EDT eCW1 ([facility]) Surgeries/Procedures Procedure Description Date Indications Data Source(s) OFFICE OUTPATIENT VISIT 25 MINUTES 02/13/2021 12:00:00 AM EST MEDENT ([facility] ) OFFICE OUTPATIENT VISIT 15 MINUTES 01/23/2021 12:00:00 AM EDT MEDENT ([facility]) OFFICE OUTPATIENT VISIT 25 MINUTES 01/15/2021 12:00:00 AM EDT MEDENT ([facility] ) Needle electromyography, each extremity, with related paraspinal areas, when performed, done with nerve conduction, amplitude and latency/velocity study; complete, five or more muscles studied, innervated by three or more nerves or four or more spinal levels (list separately in addition to the code for primary procedure). 01/04/2021 12:00:00 AM EDT MEDEN T ([facility]) Nerve Conduction 9-10 Studies 01/04/2021 12:00:00 AM E DT MEDENT ([facility] ) OFFICE CONSULTATION NEW/ESTAB PATIENT 60 MIN 12:00:00 AM EDT MEDENT ([facility] ) CVR Kiln Tender.Svc. Contraceptive 01/01/2021 12 :00:00 AM EDT - 01/01/2021 12:00:00 AM EDT [facility] ([facility]) CVR Kiln Tender.Svc. STI / H 01/01/2021 12:00:00 AM EDT - 01/01/2021 12:00:00 AM EDT [facility] ([facility]) CVR Med.Svc. Height/Weight 01/01/2021 12 :00:00 AM EDT - 01/01/2021 12:00:00 AM EDT [facility] ([facility]) CVR Blood Pressure 01/01/2021 12:00:00 AM EDT - 2020 12:00:00 AM EDT [facility] ([facility]) SMEAR, WET MOUNT, SALINE/INK 01/01/2021 12:00:00 AM EDT - 01/01/2021 12:00:00 AM EDT [facility] ([facility]) HCS Without Test 01/01/2021 12:00:00 AM EDT - 01/02/20 12:00:00 AM EDT [facility] ([facility]) CYTOPATH, C/V, INTERPRET 01/01/2021 12:0 0:00 AM EDT - 01/01/2021 12:00:00 AM EDT [facility] ([facility]) CYTOPATH, C/V, THIN LAYER 01/01/2021 12: 00:00 AM EDT - 01/01/2021 12:00:00 AM EDT [facility] ([facility]) N.GONORRHOEAE, SWAB 01/01/2021 12:00:00 AM EDT - 01/01 12:00:00 AM EDT [facility] ([facility]) CHYLMD TRACH, SWAB 01/01/2021 12:00:00 AM EDT - 2020 12:00:00 AM EDT [facility] ([facility]) URINE TEST 01/01/2021 12:00:00 AM EDT - 01/01/2021 12:00:00 AM EDT [facility] ([facility]) OFFICE/OUTPATIENT VISIT, NEW 01/01/2021 12:00:00 AM EDT - 01/01/2021 12:00:00 AM EDT [facility] ([facility]) OFFICE OUTPATIENT VISIT 15 MINUTES 12/13/2020 12:00:00 AM EDT MEDENT ([facility]) OFFICE OUTPATIENT VISIT 25 MINUTES 11/23/2020 12:00:00 AM EDT MEDENT ([facility]) OFFICE OUTPATIENT VISIT 15 MINUTES 10/19/2020 12:00:00 AM EDT MED[facility] ([facility]) OFFICE OUTPATIENT VISIT 25 MINUTES 10/19/2020 12:00:00 AM EDT MEDENT ([facility]) MRI Upper Extremity Any Joint 09/28/2020 12:00:00 AM E DT MEDENT ([facility]) OFFICE OUTPATIENT VISIT 15 MINUTES 09/20/2020 12:00:00 AM EDT MEDENT ([facility]) PREVENT MED FACE AND FILL PACKER&/RISK FACTOR REDJ SPX 30 MIN 09/15 12:00:00 AM EDT MEDENT ([facility]) OFFICE OUTPATIENT VISIT 25 MINUTES 09/05/2020 12:00:00 AM EDT MEDENT ([facility] ) OFFICE OUTPATIENT VISIT 25 MINUTES 08/04/2020 12:00:00 AM EDT MEDENT ([facility]) Psychiatric Diagnostic Evaluation 07/26/2020 12:00:00 AM EDT MED[facility] ([facility]) OFFICE OUTPATIENT VISIT 25 MINUTES 06/04/2020 12:00:00 AM EST MED[facility] ([facility]) OFFICE OUTPATIENT VISIT 15 MINUTES 03/28/2020 12:00:00 AM EST MED[facility] ([facility] ) RADEX SHOULDER COMPLETE MINIMUM 2 VIEWS 02/28/2020 12: 00:00 AM EST [facility] ([facility]) Results ID Date Data Source [id number] 02/06/2021 05:49:[address] [facility] [address] [place] [address] PHONE: [phone] FAX: [phone] Name .................. : LOUIS Jurado Acct Number.................. : [id number] ROOM. ................. : MR Number ................... : [id number] Stay type ............. : O/P Discharge Date......... ... : 02/06/21 Admit Date ......... : 02/06/21 Admit Phys .................... : PRESTON CAMPBELL Date of ....... : 2000 Family Phys ................... : TOM MAGANA Phone .................. : [phone] Age ................................ : 20 Film# .................. .:[id number] Sex ................................. : F Unsigned transcriptions are preliminary reports and do not represent a medical or legal document MRI CERVICAL SPINE W/O CONTRA [id number] COMPLETE:02/06/21 07:[address] [facility] [id number] Reason for Exam: CERVICALGIA CERVICAL SPINE MRI WITHOUT IV CONTRAST INDICATION: Cervicalgia. Rule out herniation. Neck and left arm pain after left arm injured by machine July 2020. Left hand numbness and tingling. COMPARISON: None CONTRAST: None TECHNIQUE: Multiple MRI sequences of the cervical spine were obtained in the sagittal and axial planes. FINDINGS: The visualized vertebral bodies are normal height. No fracture or focal bone lesion. Cervical spinal cord is normal in course, caliber, and signal intensity. The disk spaces are well preserved. No disk herniation, spinal canal narrowing, or compression of the thecal sac. IMPRESSION: Negative exam. Electronically Reviewed and Signed By Sumit Machado MD , 02/06/21 17:49, DCB Transcribe Initials: [facility], Transcribe Date: 02/06/21 09:27, Dictation Date: Copy for: PRESTON NEGRETE via fax Copy for: [address] [place] [address] REC Page 1 of 1 Name Value Range Interpretation Code Description Data Melina rce(s) Supporting Document(s) ID Date Data Source [id number] 01/01/2021 10:52:38 AM EDT [facility] ([facility]) Name Value Range Interpretation Code Description Data Melina rce(s) Supporting Document(s) Hyphae/Mansi: no; Budding yeast: no; Trich: no; Clue cells: yes (>=20%); WBCs: yes (few); Amine/Whiff test: positive Abnormal ( applies to non-numeric results) Wet Prep [facility] ([facility]) ID Date Data Source [id number] 01/01/2021 10:11:12 AM EDT [facility] ([facility]) Name Value Range Interpretation Code Description Data Melina rce(s) Supporting Document(s) NegativeLot: [id number]: 04/23/2022 High Sensitivity Urine Test NextGen ([facility]) ID Date Data Source [id number] 01/01/2021 12:00:00 AM EDT [facility] ([facility]) Name Value Range Interpretation Code Description Data Melina rce(s) Supporting Document(s) Negative Normal (applies to non-numer ic results) [place] Amplified CT/GC Combo - GC NextGen ([facility]) : NoThis information has been di sclosed to you from confidential records which are protected by law. Privacy laws prohibityou from making any further disclosure of this information without the specific written consent of the person to whom itpertains, or otherwise permitted by law. Any unauthorized further disclosure in violation of the law may result in a fineor snf sentence or both. A general authorization for the release of medical or other information is not, except inlimited circumstances set forth in this part, sufficient authorization for further disclosure.This document contains private and confidential health information protected by state and federal law. If youhave received this document in error, please call the Senior Product Manager for [employer] at ext [phone] [email or web address]-mail [email or web address] Performed by: DANIELLE ([id number]) ID Date Data Source [id number] 01/01/2021 12:00:00 AM EDT [facility] ([facility]) Name Value Range Interpretation Code Description Data Emlina rce(s) Supporting Document(s) Negative Normal (applies to non-numer ic results) [place] Amplified CT/GC Combo - CT [facility]) ID Date Data Source [id number] 12/13/2020 12:00:00 AM EDT [facility] Name Value Range Interpretation Code Description Data Melina rce(s) Supporting Document(s) SARS-CoV2 Rapid Antigen Not Detected [facility] This lab was reported by Graham Garcia. ID Date Data Source [id number] 12/11/2020 08:30:00 AM EDT [facility] Name Value Range Interpretation Code Description Data Melina rce(s) Supporting Document(s) SARS-CoV-2 RNA Resp Ql RADHA+probe NOT DETECTED [facility] This lab was ordered by MELVIN knowles and reported by MELVIN Rascon. ID Date Data Source [id number] 09/18/2020 01:36:00 PM EDT [facility] Name Value Range Interpretation Code Description Data Melina rce(s) Supporting Document(s) HCG URINE QUAL NEGATIVE NORMAL: NEGATIVE [facility] HCG URINE QL REENTER NEGATIVE NORMAL: NEGATIVE [facility] { KIT LOT # [id number] ){ KIT EXP DATE 02/20/22 ){ PROCEDURAL CONTROL VALID ) ID Date Data Source [id number] 09/15/2020 02:51:00 PM EDT MEDENT ([facility]) Name Value Range Interpretation Code Description Data Melina rce(s) Supporting Document(s) Choriogonadotropin.beta subunit ( test) [Pres ence] in Urine Laboratory test result [facility] ([facility]) ID Date Data Source [id number] 09/15/2020 02:51:00 PM EDT [facility] ([facility]) Name Value Range Interpretation Code Description Data Melina rce(s) Supporting Document(s) HCG Urine Qual Laboratory test result [facility] ([facility]) .~.~N91.2 HCG Urine QL Reenter Laboratory test result [facility] ([facility]) .~.~N91.2 ID Date Data Source [id number] 09/25/2020 06:43:00 AM EDT [facility] Name Value Range Interpretation Code Description Data Melina rce(s) Supporting Document(s) Drugs identified in Urine FINAL Cart [facility] TOXASSURE SELECT 13 (MW) Test Result Flag Units NO DRUGS DETECTED. Loan t Result Flag Units Ref Range Creatinine 76 mg/dL > =20 Declared Medications: The flagging and interpretation on this report are based on the following declared medications. Unexpected results may arise from inaccuracies in the declared medications. No medication use reported. For clinical consultation, please call . Report . 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 ID Date Data Source [id number] 07/10/2020 02:00:00 PM EDT [facility] ([facility]) Name Value Range Interpretation Code Description Data Melina rce(s) Supporting Document(s) Laboratory test finding (navigational concept) Laboratory test result [facility] ([facility]) ASSAY INFORMATION: Real Time RT-PCR NOTE: The COVID-19 assay has been cleared by the U.S. Food and Drug Administration under the Emergency Use Authorization (EUA). [facility] are designated as high complexity laboratories by the Clinical Laboratory Improvement Amendments of 1988(CLIA) and are qualified to perform this test. Not Detected ID Date Data Source [id number] 06/26/2020 02:00:00 PM EDT [facility] Name Value Range Interpretation Code Description Data Melina rce(s) Supporting Document(s) SARS-CoV-2 (COVID-19) RNA [Presence] in Respiratory specimen by RADHA with probe detection Not Detected [facility] This lab was ordered by [employer] [place] and reported by [employer] ID Date Data Source [id number] 06/26/2020 02:00:00 PM EDT [facility] ([facility]) Name Value Range Interpretation Code Description Data Melina rce(s) Supporting Document(s) Laboratory test finding (navigational concept) Laboratory test result [facility] ([facility]) NOTE: The COVID-19 assay is under Emerge ncy Use Authorization (EUA) by the U.S. Food and Drug Administration. [facility] and [facility] are designated as high complexity laboratories by the Clinical Laboratory Improvement Amendments of 1988(CLIA) and are qualified to perform this test. ASSAY INFORMATION: Real Time RT-PCR Not Detected ID Date Data Source [id number] 04/05/2020 09:31:00 PM EST [facility] ([facility]) Name Value Range Interpretation Code Description Data Melina rce(s) Supporting Document(s) Thyroxine (T4) free [Mass/volume] in Serum or Plasma 0.95 ng/dL 0.78-1.33 Normal (applies to non-numeric results) [facility] ([facility]) <content>note:<nlbl:demographic_changed> </content>
<content></content> ID Date Data Source [id number] 04/05/2020 09:31:00 PM EST [facility] ([facility]) Name Value Range Interpretation Code Description Data Melina rce(s) Supporting Document(s) Glucose, Fasting 92 mg/dL 70-100 Normal (applies to non-numeric results) [facility] ([facility]) Blood Urea Nitrogen 10 mg/dL 7-18 Normal (applies to non-nume arben results) [facility] ([facility]) Creatinine For GFR 0.80 mg/dL 0.55-1.30 Normal (applies to non -numeric results) [facility] ([facility]) Potassium Serum 4.0 meq/L 3.5-5.1 Normal (applies to non-numeric results) [facility] ([facility]) Sodium Level 138 meq/L 136-145 Normal (applies to non-numeric res ults) [facility] ([facility]) Carbon Dioxide Level 25 meq/L 21-32 Normal (applies to non-num tawanda results) [facility] ([facility]) Chloride Level 104 meq/L 98-107 Normal (applies to non-numeric r esults) [facility] ([facility]) Calcium Level 9.6 mg/dL 8.5-10.1 Normal (applies to non-numeric re sults) [facility] ([facility]) Anion Gap 9 meq/L 8-16 Normal (applies to non-numeric resul ts) [facility] ([facility]) ID Date Data Source [id number] 04/05/2020 09:31:00 PM EST [facility] ([facility]) Name Value Range Interpretation Code Description Data Melina rce(s) Supporting Document(s) CPK Creatine Phosphokinase 80 U/L 26-192 Claudia l (applies to non-numeric results) [facility] ([facility]) MB/CK Relative Index 1.25 Normal (applies to non-num tawnada results) [facility] ([facility]) <content>DIAGNOSIS CRITERIA</content>
<content>MMB ng/ml Relative Index (RI)</content>
<content>NON-AMI < or = 5 N/A</content>
<content>REN ZONE > 5 < or = 4</content>
<content>AMI > 5 > 4</content>
<content></content> CK-MB Value Mass Laboratory test result Normal ( applies to non-numeric results) [facility] ([facility]) Troponin I Laboratory test result Normal (applies to non-n umeric results) [facility]) <content>Troponin I Reference Interval f or [facility] [place] LOCI:</content>
<content></content>
<content>99th Percentile= 0.00-0.045 ng/ml</content>
<content></content>
<content>Risk Stratification:</content>
<content><= 0.10 ng/ml Decreased Risk for Adverse Clinical</content>
<content>Events.</content>
<content>0.10-1.50 ng/ml Increased Risk for Adverse Clinical</content>
<content>Events. Evaluation of additional</content>
<content>criterion and/or repeat testing in 2-6</content>
<content>hours is suggested to rule out myocardial</content>
<content>damage.</content>
<content>>= 1.50 ng/ml Indicative of Myocardial Injury.</content>
<content></content> ID Date Data Source [id number] 04/05/2020 09:31:00 PM EST [facility] ([facility]) Name Value Range Interpretation Code Description Data Melina rce(s) Supporting Document(s) Fibrin D-dimer FEU [Mass/volume] in Platelet poor plasma Lab oratory test result Normal (applies to non-numeric results) [facility]) ID Date Data Source [id number] 04/05/2020 09:31:00 PM EST [facility] ([facility]) Name Value Range Interpretation Code Description Data Melina rce(s) Supporting Document(s) White Blood Count 6.5 10 4.0-10.0 Normal (applies to non-numeri c results) [facility]) Hemoglobin 14.7 g/dL 12.0-15.5 Normal (applies to non-numeric resul ts) [facility]) Red Blood Count 5.20 10 4.00-5.40 Normal (applies to non-numeric results) [facility]) Hematocrit 45.4 % 36.0-47.0 Normal (applies to non-numeric resul ts) [facility]) Mean Corpuscular Volume 87.3 fl 80.0-96.0 Normal ( applies to non-numeric results) [facility]) Mean Corpuscular HGB Conc 32.4 g/dL 32.0-36.5 Normal (applies to non-numeric results) [facility]) Mean Corpuscular Hemoglobin 28.3 pg 27.0-33.0 Norm al (applies to non-numeric results) [facility]) Red Cell Distribution Width 12.4 % 11.5-14.5 Norm al (applies to non-numeric results) [facility] ([facility]) Platelet Count, Automated 384 10 150-450 Normal (applies to non-numeric results) [facility] ([facility]) Lymph % 41.0 % 24.0-44.0 Normal (applies to non-numeric resul ts) [facility] ([facility]) Neutrophils % 50.1 % 36.0-66.0 Normal (applies to non-numeric re sults) [facility] ([facility]) Eos % 1.2 % 0.0-3.0 Normal (applies to non-numeric resul ts) [facility] ([facility]) Hand % 6.6 % 0.0-5.0 Above high normal [facility] ([facility]) Baso % 0.9 % 0.0-1.0 Normal (applies to non-numeric resul ts) [facility] ([facility]) Immature Granulocyte % 0.2 % 0-3.0 Normal (applies to non-n umeric results) [facility] ([facility]) Neutrophils # 3.3 10 1.5-8.5 Normal (applies to non-numeric re sults) [facility] ([facility]) Nucleated Red Blood Cell % 0.0 % 0-0 Normal (applies to n on-numeric results) [facility] ([facility]) Lymph # 2.7 10 1.5-5.0 Normal (applies to non-numeric resul ts) [facility] ([facility]) Hand # 0.4 10 0.0-0.8 Normal (applies to non-numeric resul ts) [facility] ([facility]) Baso # 0.1 10 0.0-0.2 Normal (applies to non-numeric resul ts) [facility] ([facility]) Eos # 0.1 10 0.0-0.5 Normal (applies to non-numeric resul ts) [facility] ([facility]) ID Date Data Source [id number] 01/15/2020 04:43:00 PM EDT [facility] ([facility] Name Value Range Interpretation Code Description Data Melina rce(s) Supporting Document(s) Throat Culture Laboratory test result [facility] ([facility]) FULL REPORT IN LAB NOTES (eCW and Medent ). NORMAL POONAM PRESENT ID Date Data Source [id number] 01/14/2020 07:31:00 PM EDT [facility] ([facility]) Name Value Range Interpretation Code Description Data Melina rce(s) Supporting Document(s) Bacteria identified in Throat by Culture Laboratory test result [facility] ([facility]) Procedure Social History Code Duration Value Status Description Data Source(s ) Smoking 01/18/2021 12:00:00 AM EDT Never smoker completed Never s moker [facility] ([facility]) Smoking 12/13/2020 12:00:00 AM EDT Patient has never smoked co mpleted Patient has never smoked [facility] ([facility]) Smoking 08/10/2020 12:00:00 AM EDT Never Smoker completed Never S moker eCW1 ([facility]) Smoking 08/10/2020 12:00:00 AM EDT Never Smoker completed Never S moker eCW1 ([facility]) Smoking 08/10/2020 12:00:00 AM EDT Never Smoker completed Never S moker eCW1 ([facility]) Smoking 08/10/2020 12:00:00 AM EDT Never Smoker completed Never S moker eCW1 ([facility]) Smoking 04/24/2020 12:00:00 AM EST Never Smoker completed Never S moker eCW1 ([facility]) Vital Signs ID Date Data Source [id number] Name Value Range Interpretation Code Description Data Source(s) Body height 62 [in_i] 62 [in_i] [facility] ([facility]) 5'2" Heart rate 71 /min 71 /min [facility] ([facility]) Respiratory rate 16 /min 16 /min [facility] ( [facility]) Body mass index (BMI) [Ratio] 22.9 kg/m2 22.9 k g/m2 [facility] ([facility]) Systolic blood pressure 118 mm[Hg] 118 mm[Hg] M EDENT ([facility], [facility]) Body temperature 98.5 [degF] 98.5 [degF] [facility]ENT ([facility], [facility]) Body weight 125.00 [lb_av] 125.00 [lb_av] MEDEN T ([facility], [facility]) Oxygen saturation in Arterial blood by Pulse oximetry 100 % 100 % [facility] ([facility], [facility]) Diastolic blood pressure 81 mm[Hg] 81 mm[Hg] [facility] ([facility], [facility]) Body height 157.48 cm 157.48 cm [facility] ([facility]) Body weight 58.695 kg 58.695 kg [facility] ([facility]) Systolic blood pressure 114 mm[Hg] 114 mm[Hg] N extGen ([facility]) Diastolic blood pressure 64 mm[Hg] 64 mm[Hg] [facility] ([facility]) Body mass index (BMI) [Ratio] 23.67 kg/m2 23.67 kg/m2 [facility] ([facility]) Body mass index (BMI) [Ratio] 20.8 kg/m2 20.8 k g/m2 [facility] ([facility], [facility]) Body weight 114.00 [lb_av] 114.00 [lb_av] MEDEN T ([facility], [facility]) Systolic blood pressure 122 mm[Hg] 122 mm[Hg] M EDENT ([facility], [facility]) Diastolic blood pressure 84 mm[Hg] 84 mm[Hg] [facility] ([facility], [facility]) Heart rate 74 /min 74 /min [facility] ([facility], [facility]) Respiratory rate 18 /min 18 /min [facility] ( [facility], [facility]) Oxygen saturation in Arterial blood by Pulse oximetry 99 % 99 % [facility] ([facility], [facility]) Body temperature 98.6 [degF] 98.6 [degF] [facility] ([facility], [facility]) Body height 62 [in_i] 62 [in_i] [facility] ([facility], [facility]) 5'2" Systolic blood pressure 106 mm[Hg] 106 mm[Hg] M EDENT ([facility], [facility]) Diastolic blood pressure 70 mm[Hg] 70 mm[Hg] [facility] ([facility], [facility]) Heart rate 69 /min 69 /min [facility] ([facility], [facility]) Respiratory rate 15 /min 15 /min [facility] ( [facility], [facility]) Oxygen saturation in Arterial blood by Pulse oximetry 99 % 99 % [facility] ([facility], [facility]) Body temperature 97.5 [degF] 97.5 [degF] [facility] ([facility], [facility]) Body weight 114.00 [lb_av] 114.00 [lb_av] MEDEN T ([facility], [facility]) Body height 62 [in_i] 62 [in_i] [facility] ([facility]) 5'2" Body mass index (BMI) [Ratio] 20.8 kg/m2 20.8 k g/m2 [facility] ([facility], [facility]) Systolic blood pressure--sitting 103 mm[Hg] 103 mm[Hg] [facility] ([facility]) Diastolic blood pressure--sitting 71 mm[Hg] 71 mm[Hg] [facility] ([facility]) Heart rate 63 /min 63 /min [facility] ([facility]) Body temperature 97.8 [degF] 97.8 [degF] [facility] ([facility]) Oral Respiratory rate 16 /min 16 /min [facility] ( [facility]) Oxygen saturation in Arterial blood by Pulse oximetry 100 % 100 % [facility] ([facility]) Body mass index (BMI) [Ratio] 21.9 kg/m2 21.9 k g/m2 [facility] ([facility]) Body surface area Derived from formula 1.54 m2 1.54 m2 [facility] ([facility]) Body weight 120.00 [lb_av] 120.00 [lb_av] MEDEN T ([facility]) Body weight 54.432 kg 54.432 kg MEDENT ([facility]) Body height 62 [in_i] 62 [in_i] MED[facility] ([facility]) 5'2" Diastolic blood pressure 68 mm[Hg] 68 mm[Hg] eCW1 ([facility]) Body weight 118 [lb_av] 118 [lb_av] eCW1 ([facility]) Body weight 53.52 kg 53.52 kg eCW1 ([facility]) Body height 62 [in_i] 62 [in_i] eCW1 ([facility]) Body mass index (BMI) [Ratio] 21.58 kg/m2 21.58 kg/m2 eCW1 ([facility]) Systolic blood pressure 102 mm[Hg] 102 mm[Hg] e CW1 ([facility]) Body temperature 97.1 [degF] 97.1 [degF] [facility] ([facility]) Body height 62.5 [in_i] 62.5 [in_i] [facility] ([facility]) 5'2.50" Body weight 119.25 [lb_av] 119.25 [lb_av] MEDEN T ([facility]) Body mass index (BMI) [Ratio] 21.5 kg/m2 21.5 k g/m2 [facility] ([facility]) Systolic blood pressure 113 mm[Hg] 113 mm[Hg] M EDENT ([facility], [facility]) Diastolic blood pressure 64 mm[Hg] 64 mm[Hg] MED[facility] ([facility], [facility]) Heart rate 70 /min 70 /min [facility] ([facility], [facility]) Respiratory rate 18 /min 18 /min MED[facility] ( [facility], [facility]) Oxygen saturation in Arterial blood by Pulse oximetry 98 % 98 % MED[facility] ([facility], [facility]) Body temperature 98.0 [degF] 98.0 [degF] MED[facility] ([facility], [facility]) Body weight 114.00 [lb_av] 114.00 [lb_av] MEDEN T ([facility], [facility]) Body height 62 [in_i] 62 [in_i] MEDENT ([facility], [facility]) 5'2" Body mass index (BMI) [Ratio] 20.8 kg/m2 20.8 k g/m2 MED[facility] ([facility], [facility]) Body weight 128 [lb_av] 128 [lb_av] eCW1 ([facility]) Body weight 58.06 kg 58.06 kg W1 ([facility]) Body height 62 [in_i] 62 [in_i] eCW1 ([facility]) Body mass index (BMI) [Ratio] 23.41 kg/m2 23.41 kg/m2 eCW1 ([facility]) Systolic blood pressure 118 mm[Hg] 118 mm[Hg] e CW1 ([facility]) Diastolic blood pressure 68 mm[Hg] 68 mm[Hg] eCW1 ([facility]) Body height 62 [in_i] 62 [in_i] MEDENT ([facility] ) 5'2" Body weight 125.00 [lb_av] 125.00 [lb_av] MEDEN T ([facility] ) Body mass index (BMI) [Ratio] 22.9 kg/m2 22.9 k g/m2 MEDENT ([facility] ) Body temperature 97.1 [degF] 97.1 [degF] MEDENT ([facility] ) Respiratory rate 16 /min 16 /min MEDENT ( [facility], [facility]) Oxygen saturation in Arterial blood by Pulse oximetry 98 % 98 % MEDENT ([facility], [facility]) Body temperature 98.3 [degF] 98.3 [degF] MEDENT ([facility], [facility]) Body weight 125.00 [lb_av] 125.00 [lb_av] MEDEN T ([facility], [facility]) Body height 62 [in_i] 62 [in_i] MEDENT ([facility], [facility]) 5'2" Body mass index (BMI) [Ratio] 22.9 kg/m2 22.9 k g/m2 MEDENT ([facility], [facility]) Systolic blood pressure 116 mm[Hg] 116 mm[Hg] M EDENT ([facility], [facility]) Diastolic blood pressure 81 mm[Hg] 81 mm[Hg] MEDENT ([facility], [facility]) Heart rate 91 /min 91 /min MEDENT ([facility], [facility]) Body height 62 [in_i] 62 [in_i] MEDENT ([facility]) 5'2" Body surface area Derived from formula 1.56 m2 1.56 m2 [facility] ([facility]) Body temperature 98.0 [degF] 98.0 [degF] MEDENT ([facility]) Systolic blood pressure 104 mm[Hg] 104 mm[Hg] M EDENT ([facility]) Diastolic blood pressure 68 mm[Hg] 68 mm[Hg] MEDENT ([facility]) Heart rate 86 /min 86 /min MEDENT ([facility]) Respiratory rate 16 /min 16 /min [facility] ( [facility]) Oxygen saturation in Arterial blood by Pulse oximetry 97 % 97 % [facility] ([facility]) Body weight 123.38 [lb_av] 123.38 [lb_av] MEDEN T ([facility]) Body weight 55.963 kg 55.963 kg MEDENT ([facility]) Body mass index (BMI) [Ratio] 22.6 kg/m2 22.6 k g/m2 [facility] ([facility]) Oxygen saturation in Arterial blood by Pulse oximetry 100 % 100 % MEDENT ([facility], [facility]) Systolic blood pressure 118 mm[Hg] 118 mm[Hg] M EDENT ([facility], [facility]) Body mass index (BMI) [Ratio] 22.9 kg/m2 22.9 k g/m2 MEDENT ([facility], [facility]) Body height 62 [in_i] 62 [in_i] MEDENT ([facility], [facility]) 5'2" Diastolic blood pressure 79 mm[Hg] 79 mm[Hg] MEDENT ([facility], [facility]) Heart rate 91 /min 91 /min MEDENT ([facility], [facility]) Respiratory rate 14 /min 14 /min MEDENT ( [facility], [facility]) Body temperature 98.6 [degF] 98.6 [degF] MEDENT ([facility], [facility]) Body weight 125.00 [lb_av] 125.00 [lb_av] [facility]) Body weight 125.00 [lb_av] 125.00 [lb_av] [facility]) Body temperature 99.1 [degF] 99.1 [degF] [facility] ([facility], [facility]) Systolic blood pressure 135 mm[Hg] 135 mm[Hg] [facility] ([facility], [facility]) Diastolic blood pressure 82 mm[Hg] 82 mm[Hg] [facility] ([facility], [facility]) Heart rate 102 /min 102 /min [facility] ([facility], [facility]) Respiratory rate 16 /min 16 /min [facility] ( [facility], [facility]) Body height 62 [in_i] 62 [in_i] [facility] ([facility], [facility]) 5'2" Oxygen saturation in Arterial blood by Pulse oximetry 98 % 98 % [facility] ([facility], [facility]) Body mass index (BMI) [Ratio] 22.9 kg/m2 22.9 k g/m2 [facility] ([facility], [facility]) Patient Treatment Plan of Care Planned Activity Planned Date Details Description Data Source (s) Metronidazole 500 MG Oral Tablet 01/01/2021 12:00:00 AM EDT [facility] ([facility])
--- OUTSIDE RECORDS SUMMARY | 2021-02-26 10:52 | CCD ---
Author Author [facility] Organization [facility] Address Unknown Phone Unavailable Care Team Providers Care Cold Working Inspector Name Role Phone Ryan Dunham Unavailable Unavailable [...] Unavailable Dunham, M Barratt PA Unavailable Unavailable Jasper, J Cindy PA Unavailable Unavailable Jasper, J Cindy PA Unavailable Unavailable Jasper, J Cindy PA Unavailable Unavailable Jasper, J Cindy PA Unavailable Unavailable Jasper, J Cindy PA Unavailable Unavailable Jasper, J Cindy PA Unavailable Unavailable Jasper, J Cindy PA Unavailable Unavailable Jasper, J Cindy PA Unavailable Unavailable Jasper, J Cindy PA Unavailable Unavailable Jasper, J Cindy PA Unavailable Unavailable Jasper, J Cindy PA Unavailable Unavailable Jasper, J Cindy PA Unavailable Unavailable Jasper, J Cindy PA Unavailable Unavailable Jasper, J Cindy PA Unavailable Unavailable Jasper, J Cindy PA Unavailable Unavailable Jasper, J Cindy PA Unavailable Unavailable Jasper, J Cindy PA Unavailable Unavailable Jasper, J Cindy PA Unavailable Unavailable Jasper, J Cindy PA Unavailable Unavailable Jasper, J Cindy PA Unavailable Unavailable Jasper, J Cindy PA Unavailable Unavailable Jasper, J Cindy PA Unavailable Unavailable GEETHA URBINA [...] Cardenas, Maria L Prajapati MD Unavailable Unavailable [facility]_510, [id number] Unavailable Unavailable Adrien Lion MD Unavailable Unavailable [...] Unavailable Ayad, Adrien Carpenter MD Unavailable Unavailable Ayda, Adrien Carpenter MD Unavailable Unavailable Ayad, Adrien Carpenter MD Unavailable Unavailable Ayad, A Pauline RENTERIA Unavailable Unavailable Ayad, A Pauline RENTERIA Unavailable Unavailable Ayad, A Pauline RENTERIA Unavailable Unavailable Ayad, A Pauline RENTERIA Unavailable Unavailable Ayad, A Pauline RENTERIA Unavailable Unavailable Ayad, Adrien Carpenter MD Unavailable Unavailable Ayad, Ardien Carpenter MD Unavailable Unavailable Ayad, Adrien Carpenter [...] BEAGLE, SUJEY YENIFER Unavailable Unavailable Gore, Mei GRAIN ORIGINATION SPECIALIST Unavailable Unavailable Gore, Mei GRAIN ORIGINATION SPECIALIST Unavailable Unavailable Gore, Mei GRAIN ORIGINATION SPECIALIST Unavailable Unavailable Gore, Mei GRAIN ORIGINATION SPECIALIST Unavailable Unavailable Gore, Mei GRAIN ORIGINATION SPECIALIST Unavailable Unavailable Gore, Mei GRAIN ORIGINATION SPECIALIST Unavailable Unavailable Gore, Mei GRAIN ORIGINATION SPECIALIST Unavailable Unavailable Gore, Mei GRAIN ORIGINATION SPECIALIST Unavailable Unavailable Gore, Mei GRAIN ORIGINATION SPECIALIST Unavailable Unavailable Gore, Mei GRAIN ORIGINATION SPECIALIST Unavailable Unavailable Gore, Mei GRAIN ORIGINATION SPECIALIST Unavailable Unavailable Gore, Mei GRAIN ORIGINATION SPECIALIST Unavailable Unavailable Gore, Mei GRAIN ORIGINATION SPECIALIST Unavailable Unavailable Gomez, Darek Unavailable Unavailable Gomez, [...] HARRIET PA Unavailable Unavailable Wilsie, A Jaylin SLIP MIXER Unavailable Unavailable Nevills, C Pauline GRAIN ORIGINATION SPECIALIST Unavailable Unavailable Nevills, C Pauline GRAIN ORIGINATION SPECIALIST Unavailable Unavailable Nevills, C Pauline GRAIN ORIGINATION SPECIALIST Unavailable Unavailable Nevills, C Pauline GRAIN ORIGINATION SPECIALIST Unavailable Unavailable Nevills, C Pauline GRAIN ORIGINATION SPECIALIST Unavailable Unavailable Nevills, C Pauline GRAIN ORIGINATION SPECIALIST Unavailable Unavailable Nevills, C Pauline GRAIN ORIGINATION SPECIALIST Unavailable Unavailable Nevills, C Pauline GRAIN ORIGINATION SPECIALIST Unavailable Unavailable Nevills, C Pauline GRAIN ORIGINATION SPECIALIST Unavailable Unavailable Nevills, C Pauline GRAIN ORIGINATION SPECIALIST Unavailable Unavailable Nevills, C Pauline GRAIN ORIGINATION SPECIALIST Unavailable Unavailable Nevills, C Pauline GRAIN ORIGINATION SPECIALIST Unavailable Unavailable Nevills, C Pauline GRAIN ORIGINATION SPECIALIST Unavailable Unavailable Nevills, C Pauline GRAIN ORIGINATION SPECIALIST Unavailable Unavailable Nevills, C Pauline GRAIN ORIGINATION SPECIALIST Unavailable Unavailable Nevills, C Pauline GRAIN ORIGINATION SPECIALIST Unavailable Unavailable Nevills, C Pauline GRAIN ORIGINATION SPECIALIST Unavailable Unavailable Nevills, C Pauline GRAIN ORIGINATION SPECIALIST Unavailable Unavailable Nevills, C Pauline GRAIN ORIGINATION SPECIALIST Unavailable Unavailable Nevills, C Pauline GRAIN ORIGINATION SPECIALIST Unavailable Unavailable Nevills, C Pauline GRAIN ORIGINATION SPECIALIST Unavailable Unavailable Nevills, C Pauline GRAIN ORIGINATION SPECIALIST Unavailable Unavailable Nevills, C Pauline GRAIN ORIGINATION SPECIALIST Unavailable Unavailable Nevills, C Pauline GRAIN ORIGINATION SPECIALIST Unavailable Unavailable Nevills, C Pauline GRAIN ORIGINATION SPECIALIST Unavailable Unavailable Nevills, C Pauline GRAIN ORIGINATION SPECIALIST Unavailable Unavailable Nevills, C Pauline GRAIN ORIGINATION SPECIALIST Unavailable Unavailable Nevills, C Pauline GRAIN ORIGINATION SPECIALIST Unavailable Unavailable Nevills, C Pauline GRAIN ORIGINATION SPECIALIST Unavailable Unavailable Nevills, C Pauline GRAIN ORIGINATION SPECIALIST Unavailable Unavailable Nevills, C Pauline GRAIN ORIGINATION SPECIALIST Unavailable Unavailable Nevills, C Pauline GRAIN ORIGINATION SPECIALIST Unavailable Unavailable Nevills, C Pauline GRAIN ORIGINATION SPECIALIST Unavailable Unavailable Nevills, C Pauline GRAIN ORIGINATION SPECIALIST Unavailable Unavailable HOUGH, G EDWARD RPA Unavailable [...] Sumit, Katarina Kallie ANP-BC Unavailable Unavailable Sumit, Katarnia Kallie ANP-BC Unavailable Unavailable Sumit, Katarina Kallie [...] Unavailable Sumit, Katarina Kallie ANP-BC Unavailable Unavailable Sumti, Katarina Kallie ANP-BC Unavailable Unavailable Sumit, Katarina [...] is protected by Article 27-F of the [facility] Public Health law. If you continue you may have access to information: Regarding HIV / AIDS; Provided by facilities licensed or operated by the [facility] Office of Mental Health; or Provided by the [facility] Office for People With Developmental Disabilities. If such information is present, then the following [facility] mandated warning applies: This information has been [...] may result in a fine or senior living sentence or both. A general authorization for the release of medical or other information is NOT sufficient authorization for further disc losure. Family History Family Member Name Family Member Gender Family Member Status Date o f Status Description Data Source(s) Unknown Male Problem [facility] ([facility]) Encounters Encounter Providers Location Date Indications Data Source(s ) Outpatient Attender: Brenda NEGRETE Physical Therapy 02:45:00 PM EST [facility] ([facility]) Outpatient Attender: Brenda Dunham PAConsultant: Pauline dickerson GRAIN ORIGINATION SPECIALIST 02/06/2021 07:02:00 AM EST - 02/06/2021 08:02:00 AM EST [facility] Patient discharged. Outpatient Attender: HARRIET stevens 01/23/2021 08:35:00 AM EDT [facility] ([facility]) Attender: Pauline Stevenson 11:50:00 AM EDT - 01/18/2021 11:50:00 AM EDT [facility] ([facility]) Attender: Pauline Stevenson 01:28:00 PM EDT - 01/16/2021 01:28:00 PM EDT [facility] ([facility]) Outpatient Attender: Brenda NEGRETE Physical Therapy 01:15:00 PM EDT [facility] ([facility]) Attender: Cindy Lewis 01/15 10:13:00 AM EDT - 01/15/2021 10:13:00 AM EDT [facility] ([facility]) Outpatient Attender: Darek Gomez Physical Therapy 01/04/2021 02:30:0 0 PM EDT [facility] ([facility]: [facility] 01/01/2021 09:45:00 AM EDT - 01/01/2021 09:45:00 AM ED T Acute vaginitisEncounter for screening for malignant neoplasm of cervixEncntr screen for infections w sexl mode of transmissEncounter for test, result negativePelvic and perineal painEncounter for oth general cnsl and advice on contraceptionHuman immunodeficiency virus [HIV] counselingOther sex counseling [facility] ([facility]) Acute vaginitis Encounter for screening for malignant ne oplasm of cervix Encntr screen for infections w sexl mode of transmiss Encounter for test, result neg ative Pelvic and perineal pain Encounter for oth general cnsl and advic e on contraception Human immunodeficiency virus [HIV] couns eling Other sex counseling Outpatient Attender: HARRIET Schwab rodney 12/13/2020 10:25:00 AM EDT [facility] ([facility]) [place] [address] [address] 12/13/2020 12:00:00 AM EDT eCW1 ([facility]) Outpatient Attender: ABHISHEK HOUGH RPA 12/11 08:22:46 AM EDT - 12/11/2020 10:39:55 AM EDT [facility] ([facility] ) [place] [address] [facility] [address] 12/07/2020 12:00:00 AM EDT eCW1 ([facility]) Outpatient Attender: Brenda NEGRETE Physical Therapy 08:45:00 AM EDT [facility] ([facility]) Recurring Patient Referrer: Kallie ROSE-JEANNIE 11/02/2020 1 2:03:13 PM EDT [facility] Recurring Patient Referrer: Brenda NEGRETE 11/02/2020 11:50:37 AM EDT [facility] OFFICE OUTPATIENT VISIT 15 MINUTES Attender: Brenda NEGRETE Physical Therapy 10/19/2020 09:15:00 AM EDT [facility] ([facility]) Outpatient Attender: YENIFER Mason nder: GEETHA URBINAConsultant: Victorina Cardenas MD 09/29/2020 12:52:00 PM EDT - 09/29/2020 12:52:00 PM EDT [facility] Unknown [address] [facility] [address] 09/27/2020 12:00:00 AM EDT eCW1 ([facility]) Outpatient Attender: HARRIET stevens 09/20/2020 12:00:00 PM EDT [facility] ([facility]) Outpatient Attender: NEIL BAR PAConsultant: Victorina Cardenas MD 09/15/2020 04:48:00 PM EDT - 09/15/2020 04:48:00 PM EDT [facility] Outpatient Attender: [id number] [id number] 09/15/2020 02:00:00 PM EDT [facility] ([facility]) Outpatient Attender: YENIFER Harringtonant: Victorina beltrán MD 09/15/2020 01:04:00 PM EDT - 09/15/2020 01:04:00 PM EDT [facility] Outpatient Attender: Brenda NEGRETE Physical Therapy 08:45:00 AM EDT [facility] ([facility]) Outpatient Attender: YENIFER Harringtonant: Victorina beltrán MD 08/25/2020 12:51:00 PM EDT - 08/25/2020 12:51:00 PM EDT [facility] (WC 20ESGYN) WCenter 20 Min Est Facility Manager [address] [place] [address] 08/10/2020 12:00:00 AM EDT eCW1 ([facility]) Outpatient Attender: Brenda NEGRETE Physical Therapy 02:00:00 PM EDT [facility] ([facility]) Outpatient Attender: Jaylin Shultz LMSWConsultant: Sonal Cardenas MD 07/26/2020 09:58:00 AM EDT - 07/26/2020 09:58:00 AM EDT [facility] Outpatient Attender: JAYLA burns 06/04/2020 01:10:00 PM EDT [facility] ([facility]) [place] [address] [facility] [address] 04/24/2020 12:00:00 AM EST eCW1 ([facility]) Outpatient Attender: Kallie OVALLEBCConsultant: Victorina Cardenas MD 03/31/2020 02:08:35 PM EST [facility] OFFICE OUTPATIENT VISIT 15 MINUTES Attender: Brenda NEGRETE Physical Therapy 03/28/2020 12:30:00 PM EST [facility] ([facility]) OFFICE OUTPATIENT VISIT 15 MINUTES Attender: Brenda NEGRETE Physical Therapy 02/28/2020 08:00:00 AM EST [facility] ([facility]) Outpatient Attender: Kallie WILLISonsultant: Victorina Cardenas MD 01/25/2020 03:16:00 PM EST - 01/25/2020 03:16:00 PM EST [facility] Outpatient Attender: Mei agudelo 01/14/2020 07:10:00 PM EDT [facility] ([facility]) Medications Medication Brand Name Start Date Product Form Dose Route Admi nistrative Instructions Pharmacy Instructions Status Indications Reaction Description Data Source(s) tizanidine 4 MG Oral Tablet Tizanidine HCL 02/13/2021 12:00:00 AM EST ORAL active [facility] ([facility] Ketorolac Tromethamine 5 MG/ML Ophthalmic Solution Ketorolac Tromethamine 01/23/2021 12:00:00 AM EDT active [facility] ([facility]) Tobramycin 3 MG/ML Ophthalmic Solution Tobramycin 01/23/2021 12:0 0:00 AM EDT active [facility] ([facility]) Metronidazole 500 MG Oral Tablet metronidazole 500 mg tablet metronidazole 500 mg tablet 01/01/2021 12:00:00 AM EDT active 1 tab po bid x 7d (#14) [facility] ([facility]) Metronidazole 500 MG Oral Tablet METRONIDAZOLE 01/01/2021 12:0 0:00 AM EDT tablet 14 TAKE ONE TABLET BY MOUTH TWICE A DAY FOR 7 DAYS TAKE ONE TABLET BY MOUTH TWICE A DAY FOR 7 DAYS SOLD: 01/01/2021 [facility] 200 ACTUAT Albuterol 0.09 MG/ACTUAT Metered Dose Inhaler [Pr oAir] Proair HFA 12/13/2020 12:00:00 AM EDT RESPIRATORY completed [facility] ([facility]) Amoxicillin 875 MG Oral Tablet Amoxicillin 09/20/2020 12:00:00 AM EDT completed [facility] ([facility]) Prednisone 20 MG Oral Tablet Prednisone 09/20/2020 12:00:00 AM EDT completed [facility] ([facility]) No Active Medications 09/15/2020 12:00:00 AM EDT active [facility] ([facility]) No Active Medications 06/18/2020 12:00:00 AM EDT completed [facility] ([facility]) Fluticasone Propionate Fluticasone Propionate 06/04/2020 12:00:[address] completed [facility] ([facility]) 12 HR Pseudoephedrine Hydrochloride 120 MG Extended Re lease Oral Tablet Sinus 12 Hour 06/04/2020 12:00:00 AM EST completed [facility] ([facility]) Fluticasone Propionate Fluticasone Propionate 06/04/2020 12:00:[address] completed [facility] ([facility]) 12 HR Pseudoephedrine Hydrochloride 120 MG Extended Re lease Oral Tablet Pseudoephedrine HCL ER 06/04/2020 12:00:00 AM EST ORAL completed [facility] ([facility]) No Active Medications 06/04/2020 12:00:00 AM EST completed [facility] ([facility]) Enskyce Enskyce 06/01/2020 12:00:00 AM EST complet ed [facility] ([facility]) Paroxetine HCL Paroxetine HCL 01/25/2020 12:00:00 AM EST ORAL active [facility] ([facility]) Prednisone 20 MG Oral Tablet Prednisone 01/15/2020 12:00:00 AM EDT completed [facility] ([facility]) Prednisone 20 MG Oral Tablet Prednisone 01/14/2020 12:00:00 AM EDT completed [facility] ([facility]) Mirtazapine 7.5 MG Oral Tablet Mirtazapine 09/02/2019 12:00:00 AM EDT ORAL completed [facility] ([facility]) Insurance Providers Payer name Policy type / Coverage type Policy ID Covered democrat ID Covered democrat's relationship to mcbride Policy Mcbride Plan Information Medicaid-Pcap Medicaid [id number] Family Dependent [id number] Medicaid-Pcap Medicaid [id number] Family Dependent Medicaid-Pcap Medicaid [id number] Family Dependent [id number] Medicaid-Pcap Medicaid [id number] Family Dependent [id number] Medicaid-Pcap Medicaid [id number] Family Dependent [id number] Medicaid-Pcap Medicaid [id number] Family Dependent [id number] Medicaid-Pcap Medicaid [id number] Family Dependent [id number] Medicaid-Pcap Medicaid [id number] Family Dependent [id number] Medicaid [place] Medigap Part B [id number] Family Dependent [id number] [place] [id number] Self Pupil Benefits (pr) Commercial [id number] Self Pupil Benefits (pr) Commercial [id number] Family Dependent [id number] Hmo Blue Option Health Maintenance Organization (HMO) [id number] Family Dependent [id number] Hmo [employer] Health Maintenance Organization (HMO) [id number] Family Dependent [id number] Hmo [employer] Health Maintenance Organization (HMO) [id number] Family Dependent Hmo [employer] Health Maintenance Organization (HMO) [id number] Family Dependent [id number] Hmo [employer] Health Maintenance Organization (HMO) [id number] Family Dependent [id number] Hmo [employer] Health Maintenance Organization (HMO) [id number] Family Dependent [id number] Hmo [employer] Health Maintenance Organization (HMO) [id number] 09 [id number] Family Dependent [id number] Hmo [employer] Health Maintenance Organization (HMO) [id number] 09 [id number] Family Dependent [id number] Medicaid Dental S [id number] [facility] Community Plan Health Maintenance Organization (HMO) [id number] Self [id number] [facility] Community Plan Health Maintenance Organization (HMO) [id number] Self [id number] [facility] I [id number] Self [id number] [facility] Community Plan Health Maintenance Organization (HMO) [id number] Family Dependent [facility] Community Plan Medigap Part B [id number] Self [id number] [facility] Community Plan Medigap Part B [id number] Family Dependen t [id number] [facility] Community Plan Medigap Part B [id number] Self [id number] [facility] B [id number] Self [id number] [facility] I [id number] Self [id number] Medicaid-Pcap Medicaid [id number] 5.0 Self [id number] Medicaid-Pcap Medicaid [id number] [id number] 5.0 Self [id number] Medicaid-Pcap Medicaid [id number] [id number] [id number] Self [id number] Medicaid-Pcap Medicaid [id number] [id number]877.1871 5.0 Self [id number] Medicaid-Pcap Medicaid [id number] [id number] [id number] Self [id number] Medicaid-Pcap Medicaid [id number] 2.16840.1.248080.3.227.99.4877.1 [id number] Self [id number] MEDICAID [id number] SP [id number] Medicaid-Pcap Medicaid [id number] 2.16840.1.253769.3.227.99.4877.1 [id number] Self [id number] MVP H [id number] Self [id number] Managed Care Health Maintenance Organization (HMO) [id number] [id number] Self [id number] [facility] Managed Care Health Maintenance Organization (HMO) [id number] 00 [id number] Self [id number] [facility] Care Health Maintenance Organization ([facility]) [id number] 00 2.16.840.1.425050.3.227.99.4877.79101.0 Self [id number] [facility] Care Health Maintenance Organization ([facility]) [id number] Self [id number] [facility] Care Health Maintenance Organization ([facility]) [id number] Self [id number] [facility] I [id number] Self [id number] [employer] (WC[place] [id number] Self TA [id number] Guard Ins (WC) Workers [place] TA [id number] Self TA [id number] [facility] Health Maintenance Organization ([facility]) [id number] 1 [id number] Self [id number] [facility] [id number] Self [id number] [facility] I [id number] Self [id number] [facility] [employer] [id number] Self [id number] [place] 2 [id number] SELF [id number] ANSI-Not a Secondary Insurance [id number] ANSI-Not a Secondary Insurance [id number] [facility] [id number] MVP MCDO [id number] SP [id number] ANSI-Medicaid [id number] [facility] COMMUNITY PLAN MCDO [id number] SP [id number] ANSI-Medicaid [id number] [facility] Communty Plan Medicaid [id number] Self [id number] [facility] COMMUNITY PLAN XIX [id number] 18 [id number] D Managed Care [facility] P [id number] S [id number] [facility] HEALTH CARE O [id number] S [id number] Self Pay P [id number] S [id number] MICHAEL GALLOWAY WORKER COMP [id number] SP [id number] [facility] Communty Plan Medicaid [id number] Self [id number] [facility] MEDICAID HMO -O/P [id number] 18 [id number] [facility] Health Maintenance Organization (HMO) [id number] Self [id number] [facility] COMMUNTY PLAN [id number] 18 [id number] ANSI-Medicaid [id number] HMO BLUE [id number] SP [id number] [facility] Communty Plan Medicaid [id number] Self [id number] MEDICAID [place] [id number] S [id number] [facility] HMO [id number] S [id number] [facility]Community [facility] Health Maintenance Organization (O) [id number] Self [id number] MVP [id number] SP [id number] Medicaid S UNAVAILABLE S UNAVAILA BLE Managed Care - MVP P UNAVAILABLE S UNAVAILABLE UNHC COMMUNITY PLAN XIX [id number] 18 [id number] [facility] HEALTH CARE O [id number] S [id number] [facility] COMMUNITY PLAN MCDO [id number] SP [id number] [facility] [id number] S [id number] MEDICAID M [id number] S [id number] MEDICAID [id number] SP [id number] [facility] O [id number] S [id number] [facility] O [id number] S [id number] [facility] HMO [id number] S [id number] [facility] HMO [id number] S [id number] [facility] O [id number] S [id number] [facility](MCAID) O [id number] S [id number] [place] [id number] SP [id number] [facility] COMMUNTY PLAN [id number] 18 [id number] [facility] COMMUNITY PLAN [place] [id number] 18 [id number] UNHC COMMUNITY PLAN MCDO [id number] SP [id number] [facility](MCAID) O [id number] S [id number] MEDICAID -RECURRING [id number] MICHAEL GALLOWAY -O/P CAITLIN BRANCATELLA 18 CAITLIN BRANCATELLA [facility] Health Maintenance Organization (HMO) [id number] Self [id number] [facility] Health Maintenance Organization (HMO) [id number] 1 [id number] Self [id number] D [facility] [id number] S [id number] UN AMERICHOICE XIX -[facility] [id number] 18 [id number] ANSI-Not a Secondary Insurance [id number] [place] [facility] [id number] SP [id number] [address] [facility] [id number] SP [id number] [address] [facility]/o Health Maintenance Organization (HMO) [id number] Self [id number] [facility] [id number] S [id number] [employer] INSURANCE [id number] S [id number] [employer] HEALTH STRATEGIES [id number] S [id number] Problems, Conditions, and Diagnoses Code Display Name Description Problem Type Effective Dates Data Source(s) M542 Cervicalgia Cervicalgia Diagnosis 02/06/2021 07:02:00 AM [facility] F5000 Anorexia nervosa, unspecified Anorexia nervosa, unspec ified Diagnosis 09/15/2020 04:48:00 PM EDT [facility] F438 Other reactions to severe stress Other reactions to severe stress Diagnosis 09/15/2020 04:48:00 PM EDT [facility] 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 01/25/2020 03:16:00 PM [facility] F419 Anxiety disorder, unspecified Anxiety disorder, unspec ified Diagnosis 01/25/2020 03:16:00 PM [facility] F330 Major depressive disorder, recurrent, mi ld Major depressive disorder, recurrent, mild Diagnosis 01/25/2020 03:16:00 PM [facility] [id number] Atypical squamous cells of u ndetermined significance on cervical Papanicolaou smear Atypical squamous cells of undetermined significance on cervical Papanicolaou smear Problem 01/01/2021 12:00:00 AM EDT Next en ([facility]) N93.9 [id number] Abnormal uterine bleeding (AUB) Problem 08/10/2020 12:00:00 AM EDT eCW1 ([facility]) Surgeries/Procedures Procedure Description Date Indications Data Source(s) OFFICE OUTPATIENT VISIT 25 MINUTES 02/13/2021 12:00:00 AM EST MEDENT ([facility] ) OFFICE OUTPATIENT VISIT 15 MINUTES 01/23/2021 12:00:00 AM EDT MEDENT ([facility]) OFFICE OUTPATIENT VISIT 25 MINUTES 01/15/2021 12:00:00 AM EDT MEDENT ([facility] ) Needle electromyography, each extremity, with related paraspinal areas, when performed, done with nerve conduction, amplitude and latency/velocity study; complete, five or more muscles studied, innervated by three or more nerves or four or more spinal levels (list separately in addition to the code for primary procedure). 01/04/2021 12:00:00 AM EDT MEDEN T ([facility]) Nerve Conduction 9-10 Studies 01/04/2021 12:00:00 AM E DT MEDENT ([facility] ) OFFICE CONSULTATION NEW/ESTAB PATIENT 60 MIN 12:00:00 AM EDT MEDENT ([facility] ) CVR Tool Designer.Svc. Contraceptive 01/01/2021 12 :00:00 AM EDT - 01/01/2021 12:00:00 AM EDT [facility] ([facility]) CVR Tool Designer.Svc. STI / H 01/01/2021 12:00:00 AM EDT - 01/01/2021 12:00:00 AM EDT [facility] ([facility]) CVR Med.Svc. Height/Weight 01/01/2021 12 :00:00 AM EDT - 01/01/2021 12:00:00 AM EDT [facility] ([facility]) CVR Blood Pressure 01/01/2021 12:00:00 AM EDT - 2020 12:00:00 AM EDT [facility] ([facility]) SMEAR, WET MOUNT, SALINE/INK 01/01/2021 12:00:00 AM EDT - 01/01/2021 12:00:00 AM EDT [facility] ([facility]) HCS Without Test 01/01/2021 12:00:00 AM EDT - 01/02/20 12:00:00 AM EDT [facility] ([facility]) CYTOPATH, C/V, INTERPRET 01/01/2021 12:0 0:00 AM EDT - 01/01/2021 12:00:00 AM EDT [facility] ([facility]) CYTOPATH, C/V, THIN LAYER 01/01/2021 12: 00:00 AM EDT - 01/01/2021 12:00:00 AM EDT [facility] ([facility]) N.GONORRHOEAE, SWAB 01/01/2021 12:00:00 AM EDT - 01/01 12:00:00 AM EDT [facility] ([facility]) CHYLMD TRACH, SWAB 01/01/2021 12:00:00 AM EDT - 2020 12:00:00 AM EDT [facility] ([facility]) URINE TEST 01/01/2021 12:00:00 AM EDT - 01/01/2021 12:00:00 AM EDT [facility] ([facility]) OFFICE/OUTPATIENT VISIT, NEW 01/01/2021 12:00:00 AM EDT - 01/01/2021 12:00:00 AM EDT [facility] ([facility]) OFFICE OUTPATIENT VISIT 15 MINUTES 12/13/2020 12:00:00 AM EDT MEDENT ([facility]) OFFICE OUTPATIENT VISIT 25 MINUTES 11/23/2020 12:00:00 AM EDT MED[facility] ([facility]) OFFICE OUTPATIENT VISIT 15 MINUTES 10/19/2020 12:00:00 AM EDT MED[facility] ([facility]) OFFICE OUTPATIENT VISIT 25 MINUTES 10/19/2020 12:00:00 AM EDT MED[facility] ([facility]) MRI Upper Extremity Any Joint 09/28/2020 12:00:00 AM E DT MEDENT ([facility]) OFFICE OUTPATIENT VISIT 15 MINUTES 09/20/2020 12:00:00 AM EDT MED[facility] ([facility]) 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) OFFICE OUTPATIENT VISIT 25 MINUTES 09/05/2020 12:00:00 AM EDT MEDENT ([facility] ) OFFICE OUTPATIENT VISIT 25 MINUTES 08/04/2020 12:00:00 AM EDT MEDENT ([facility]) Psychiatric Diagnostic Evaluation 07/26/2020 12:00:00 AM EDT [facility] ([facility]) OFFICE OUTPATIENT VISIT 25 MINUTES 06/04/2020 12:00:00 AM EST MED[facility] ([facility]) OFFICE OUTPATIENT VISIT 15 MINUTES 03/28/2020 12:00:00 AM EST MED[facility] ([facility] ) RADEX SHOULDER COMPLETE MINIMUM 2 VIEWS 02/28/2020 12: 00:00 AM EST MEDENT ([facility]) Results ID Date Data Source [id number] 02/06/2021 05:49:00 PM [facility] [address] [place] [address] PHONE: [phone] FAX: [phone] Name .................. : LOUIS Jurado Acct Number.................. : [id number] ROOM. ................. : MR Number ................... : [id number] Stay type ............. : O/P Discharge Date......... ... : 02/06/21 Admit Date ......... : 02/06/21 Admit Phys .................... : PRESTON CAMPBELL Date of ....... : 2000 Family Phys ................... : TOM MAGANA Phone .................. : [phone] Age ................................ : 20 Film# .................. .:[id number] Sex ................................. : F Unsigned transcriptions are preliminary reports and do not represent a medical or legal document MRI CERVICAL SPINE W/O CONTRA [id number] COMPLETE:02/06/21 07:50 [facility] [id number] Reason for Exam: CERVICALGIA CERVICAL SPINE MRI [...] By Sumit Machado MD , 02/06/21 17:49, KYB Transcribe Initials: [facility], Transcribe Date: 02/06/21 09:27, Dictation Date: Copy for: PRESTON NEGRETE via fax Copy for: [address] [place] [address] REC Page 1 of 1 Name Value Range Interpretation Code Description Data Melina rce(s) Supporting Document(s) ID Date Data Source [id number] 01/01/2021 10:52:38 AM EDT [facility] ([facility]) Name Value Range Interpretation Code Description Data Melina rce(s) Supporting Document(s) Hyphae/Mansi: no; Budding yeast: no; Trich: no; Clue cells: yes (>=20%); WBCs: yes (few); Amine/Whiff test: positive Abnormal ( applies to non-numeric results) Wet Prep Next[facility] ([facility]) ID Date Data Source [id number] 01/01/2021 10:11:12 AM EDT [facility] ([facility]) Name Value Range Interpretation Code Description Data Melina rce(s) Supporting Document(s) NegativeLot: [id number]: 04/23/2022 High Sensitivity Urine Test Next[facility] ([facility]) ID Date Data Source [id number] 01/01/2021 12:00:00 AM EDT [facility] ([facility] Name Value Range Interpretation Code Description Data Melina rce(s) Supporting Document(s) Negative Normal (applies to non-numer ic results) [place] Amplified CT/GC Combo - GC NextGen ([facility]) : NoThis information has been di sclosed [...] this document in error, please call the Strip Mine Supervisor for CDD at ext [phone] [email or web address] Performed by: DANIELLE ([id number]) ID Date Data Source [id number] 01/01/2021 12:00:00 AM EDT [facility] ([facility]) Name Value Range Interpretation Code Description Data Melina rce(s) Supporting Document(s) Negative Normal (applies to non-numer ic results) [place] Amplified CT/GC Combo - CT Next[facility] ([facility]) ID Date Data Source [id number] 12/13/2020 12:00:00 AM EDT [facility] Name Value Range Interpretation Code Description Data Melina rce(s) Supporting Document(s) SARS-CoV2 Rapid Antigen Not Detected [facility] This lab was reported by Graham Garcia. ID Date Data Source [id number] 12/11/2020 08:30:00 AM EDT [facility] Name Value Range Interpretation Code Description Data Melina rce(s) Supporting Document(s) SARS-CoV-2 RNA Resp Ql RADHA+probe NOT DETECTED [facility] This lab was ordered by MELVIN knowles and reported by MELVIN Rascon. ID Date Data Source [id number] 09/18/2020 01:36:00 PM EDT [facility] Name Value Range Interpretation Code Description Data Melina rce(s) Supporting Document(s) HCG URINE QUAL NEGATIVE NORMAL: NEGATIVE [facility] HCG URINE QL REENTER NEGATIVE NORMAL: NEGATIVE [facility] { KIT LOT # [id number] ){ KIT EXP DATE 02/20/22 ){ PROCEDURAL CONTROL VALID ) ID Date Data Source [id number] 09/15/2020 02:51:00 PM EDT MEDENT ([facility]) Name Value Range Interpretation Code Description Data Melina rce(s) Supporting Document(s) Choriogonadotropin.beta subunit ( test) [Pres ence] in Urine Laboratory test result [facility] ([facility]) ID Date Data Source [id number] 09/15/2020 02:51:00 PM EDT MEDENT ([facility]) Name Value Range Interpretation Code Description Data Melina rce(s) Supporting Document(s) HCG Urine Qual Laboratory test result MEDENT ([facility]) .~.~N91.2 HCG Urine QL Reenter Laboratory test result MEDENT ([facility]) .~.~N91.2 ID Date Data Source [id number] 09/25/2020 06:43:00 AM EDT [facility] Name Value Range Interpretation Code Description Data Melina rce(s) Supporting Document(s) Drugs identified in Urine FINAL Cart [facility] TOXASSURE SELECT 13 (MW) [...] clinical consultation, please call . Report . [facility] ID Date Data Source [id number] 09/15/2020 02:43:00 PM EDT MEDENT ([facility]) Name Value Range Interpretation Code Description Data Melina rce(s) Supporting Document(s) Laboratory test finding (navigational concept) Laboratory test result MEDENT (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 ID Date Data Source [id number] 07/10/2020 02:00:00 PM EDT MEDENT ([facility]) Name Value Range Interpretation Code Description Data Melina rce(s) Supporting Document(s) Laboratory test finding (navigational concept) Laboratory test result MEDENT ([facility]) ASSAY INFORMATION: Real Time RT-PCR NOTE: The COVID-19 assay has been cleared by the U.S. Food and Drug Administration under the Emergency Use Authorization (EUA). [employer] and [employer] are designated as high complexity laboratories by the Clinical Laboratory Improvement Amendments of 1988(CLIA) and are qualified to perform this test. Not Detected ID Date Data Source [id number] 06/26/2020 02:00:00 PM EDT [facility] Name Value Range Interpretation Code Description Data Melina rce(s) Supporting Document(s) SARS-CoV-2 (COVID-19) RNA [Presence] in Respiratory specimen by RADHA with probe detection Not Detected [facility] This lab was ordered by [employer] and reported by [employer] ID Date Data Source [id number] 06/26/2020 02:00:00 PM EDT [facility] ([facility]) Name Value Range Interpretation Code Description Data Melina rce(s) Supporting Document(s) Laboratory test finding (navigational concept) Laboratory test result [facility] ([facility]) NOTE: The COVID-19 assay is under Emerge ncy Use Authorization (EUA) by the U.S. Food and Drug Administration. [employer] and [employer] are designated as high complexity laboratories by the Clinical Laboratory Improvement Amendments of 1988(CLIA) and are qualified to perform this test. ASSAY INFORMATION: Real Time RT-PCR Not Detected ID Date Data Source [id number] 04/05/2020 09:31:00 PM EST [facility] ([facility]) Name Value Range Interpretation Code Description Data Melina rce(s) Supporting Document(s) Thyroxine (T4) free [Mass/volume] in Serum or Plasma 0.95 ng/dL 0.78-1.33 Normal (applies to non-numeric results) [facility] ([facility]) <content>note:<nlbl:demographic_changed> </content>
<content></content> ID Date Data Source [id number] 04/05/2020 09:31:00 PM EST [facility] ([facility]) Name Value Range Interpretation Code Description Data Melina rce(s) Supporting Document(s) Glucose, Fasting 92 mg/dL 70-100 Normal (applies to non-numeric results) [facility] ([facility]) Blood Urea Nitrogen 10 mg/dL 7-18 Normal (applies to non-nume arben results) [facility] ([facility]) Creatinine For GFR 0.80 mg/dL 0.55-1.30 Normal (applies to non -numeric results) [facility] ([facility]) Potassium Serum 4.0 meq/L 3.5-5.1 Normal (applies to non-numeric results) [facility] ([facility]) Sodium Level 138 meq/L 136-145 Normal (applies to non-numeric res ults) [facility] ([facility]) Carbon Dioxide Level 25 meq/L 21-32 Normal (applies to non-num tawanda results) [facility] ([facility]) Chloride Level 104 meq/L 98-107 Normal (applies to non-numeric r esults) [facility] ([facility]) Calcium Level 9.6 mg/dL 8.5-10.1 Normal (applies to non-numeric re sults) [facility] ([facility]) Anion Gap 9 meq/L 8-16 Normal (applies to non-numeric resul ts) [facility] ([facility]) ID Date Data Source [id number] 04/05/2020 09:31:00 PM EST [facility] ([facility]) Name Value Range Interpretation Code Description Data Melina rce(s) Supporting Document(s) CPK Creatine Phosphokinase 80 U/L 26-192 Claudia l (applies to non-numeric results) [facility] ([facility]) MB/CK Relative Index 1.25 Normal (applies to non-num tawanda results) [facility] ([facility]) <content>DIAGNOSIS CRITERIA</content>
<content>MMB ng/ml Relative Index (RI)</content>
<content>NON-AMI < or = 5 N/A</content>
<content>REN ZONE > 5 < or = 4</content>
<content>AMI > 5 > 4</content>
<content></content> CK-MB Value Mass Laboratory test result Normal ( applies to non-numeric results) [facility] ([facility]) Troponin I Laboratory test result Normal (applies to non-n umeric results) [facility]) <content>Troponin I Reference Interval f or Siemens [place] LOCI:</content>
<content></content>
<content>99th Percentile= 0.00-0.045 ng/ml</content>
<content></content>
<content>Risk Stratification:</content>
<content><= 0.10 ng/ml Decreased Risk for Adverse Clinical</content>
<content>Events.</content>
<content>0.10-1.50 ng/ml Increased Risk for Adverse Clinical</content>
<content>Events. Evaluation of additional</content>
<content>criterion and/or repeat testing in 2-6</content>
<content>hours is suggested to rule out myocardial</content>
<content>damage.</content>
<content>>= 1.50 ng/ml Indicative of Myocardial Injury.</content>
<content></content> ID Date Data Source [id number] 04/05/2020 09:31:00 PM EST [facility] ([facility]) Name Value Range Interpretation Code Description Data Melina rce(s) Supporting Document(s) Fibrin D-dimer FEU [Mass/volume] in Platelet poor plasma Lab oratory test result Normal (applies to non-numeric results) [facility]) ID Date Data Source [id number] 04/05/2020 09:31:00 PM EST [facility] ([facility]) Name Value Range Interpretation Code Description Data Melina rce(s) Supporting Document(s) White Blood Count 6.5 10 4.0-10.0 Normal (applies to non-numeri c results) [facility]) Hemoglobin 14.7 g/dL 12.0-15.5 Normal (applies to non-numeric resul ts) [facility]) Red Blood Count 5.20 10 4.00-5.40 Normal (applies to non-numeric results) [facility]) Hematocrit 45.4 % 36.0-47.0 Normal (applies to non-numeric resul ts) [facility]) Mean Corpuscular Volume 87.3 fl 80.0-96.0 Normal ( applies to non-numeric results) [facility]) Mean Corpuscular HGB Conc 32.4 g/dL 32.0-36.5 Normal (applies to non-numeric results) [facility]) Mean Corpuscular Hemoglobin 28.3 pg 27.0-33.0 Norm al (applies to non-numeric results) [facility]) Red Cell Distribution Width 12.4 % 11.5-14.5 Norm al (applies to non-numeric results) [facility] ([facility]) Platelet Count, Automated 384 10 150-450 Normal (applies to non-numeric results) [facility] ([facility]) Lymph % 41.0 % 24.0-44.0 Normal (applies to non-numeric resul ts) [facility] ([facility]) Neutrophils % 50.1 % 36.0-66.0 Normal (applies to non-numeric re sults) [facility] ([facility]) Eos % 1.2 % 0.0-3.0 Normal (applies to non-numeric resul ts) [facility] ([facility]) Maverick % 6.6 % 0.0-5.0 Above high normal [facility] ([facility]) Baso % 0.9 % 0.0-1.0 Normal (applies to non-numeric resul ts) [facility] ([facility]) Immature Granulocyte % 0.2 % 0-3.0 Normal (applies to non-n umeric results) [facility] ([facility]) Neutrophils # 3.3 10 1.5-8.5 Normal (applies to non-numeric re sults) [facility] ([facility]) Nucleated Red Blood Cell % 0.0 % 0-0 Normal (applies to n on-numeric results) [facility] ([facility]) Lymph # 2.7 10 1.5-5.0 Normal (applies to non-numeric resul ts) [facility] ([facility]) Maverick # 0.4 10 0.0-0.8 Normal (applies to non-numeric resul ts) [facility] ([facility]) Baso # 0.1 10 0.0-0.2 Normal (applies to non-numeric resul ts) [facility] ([facility]) Eos # 0.1 10 0.0-0.5 Normal (applies to non-numeric resul ts) [facility] ([facility]) ID Date Data Source [id number] 01/15/2020 04:43:00 PM EDT [facility]ENT ([facility] Name Value Range Interpretation Code Description Data Melina rce(s) Supporting Document(s) Throat Culture Laboratory test result MEDENT ([facility]) FULL REPORT IN LAB NOTES (eCW and Medent ). NORMAL POONAM PRESENT ID Date Data Source [id number] 01/14/2020 07:31:00 PM EDT MED[facility] ([facility]) Name Value Range Interpretation Code Description Data Melina rce(s) Supporting Document(s) Bacteria identified in Throat by Culture Laboratory test result [facility] ([facility]) Procedure Social History Code Duration Value Status Description Data Source(s ) Smoking 01/18/2021 12:00:00 AM EDT Never smoker completed Never s moker [facility] ([facility]) Smoking 12/13/2020 12:00:00 AM EDT Patient has never smoked co mpleted Patient has never smoked [facility] ([facility]) Smoking 08/10/2020 12:00:00 AM EDT Never Smoker completed Never S moker eCW1 ([facility]) Smoking 08/10/2020 12:00:00 AM EDT Never Smoker completed Never S moker eCW1 ([facility]) Smoking 08/10/2020 12:00:00 AM EDT Never Smoker completed Never S moker eCW1 ([facility]) Smoking 08/10/2020 12:00:00 AM EDT Never Smoker completed Never S moker eCW1 ([facility]) Smoking 04/24/2020 12:00:00 AM EST Never Smoker completed Never S moker eCW1 ([facility]) Vital Signs ID Date Data Source [id number] Name Value Range Interpretation Code Description Data Source(s) Body height 62 [in_i] 62 [in_i] MED[facility] ([facility]) 5'2" Respiratory rate 16 /min 16 /min [facility] ( [facility]) Systolic blood pressure 118 mm[Hg] 118 mm[Hg] M EDENT ([facility]) Body temperature 98.5 [degF] 98.5 [degF] [facility] ([facility]) Body weight 125.00 [lb_av] 125.00 [lb_av] MEDEN T ([facility]) Oxygen saturation in Arterial blood by Pulse oximetry 100 % 100 % [facility] ([facility]) Diastolic blood pressure 81 mm[Hg] 81 mm[Hg] [facility] ([facility]) Body mass index (BMI) [Ratio] 22.9 kg/m2 22.9 k g/m2 [facility] ([facility], [facility]) Heart rate 71 /min 71 /min [facility] ([facility]) Body height 157.48 cm 157.48 cm [facility] ([facility]) Body weight 58.695 kg 58.695 kg [facility] ([facility]) Systolic blood pressure 114 mm[Hg] 114 mm[Hg] N ext[facility] ([facility]) Diastolic blood pressure 64 mm[Hg] 64 mm[Hg] [facility] ([facility]) Body mass index (BMI) [Ratio] 23.67 kg/m2 23.67 kg/m2 [facility] ([facility]) Body weight 114.00 [lb_av] 114.00 [lb_av] MEDEN T ([facility], [facility]) Body mass index (BMI) [Ratio] 20.8 kg/m2 20.8 k g/m2 [facility] ([facility], [facility]) Systolic blood pressure 122 mm[Hg] 122 mm[Hg] M EDENT ([facility], [facility]) Diastolic blood pressure 84 mm[Hg] 84 mm[Hg] [facility] Urgent [facility], [facility]) Heart rate 74 /min 74 /min [facility] ([facility], [facility]) Respiratory rate 18 /min 18 /min [facility] ( [facility], [facility]) Oxygen saturation in Arterial blood by Pulse oximetry 99 % 99 % [facility] ([facility], [facility]) Body temperature 98.6 [degF] 98.6 [degF] [facility] ([facility], [facility]) Body height 62 [in_i] 62 [in_i] [facility] ([facility], [facility]) 5'2" Systolic blood pressure 106 mm[Hg] 106 mm[Hg] M [facility] ([facility], [facility]) Diastolic blood pressure 70 mm[Hg] 70 mm[Hg] [facility] ([facility], [facility]) Heart rate 69 /min 69 /min [facility] ([facility], [facility]) Respiratory rate 15 /min 15 /min [facility] ( [facility], [facility]) Oxygen saturation in Arterial blood by Pulse oximetry 99 % 99 % [facility] ([facility], [facility]) Body temperature 97.5 [degF] 97.5 [degF] [facility] ([facility], [facility]) Body weight 114.00 [lb_av] 114.00 [lb_av] [facility] T ([facility], [facility]) Body height 62 [in_i] 62 [in_i] [facility] ([facility]) 5'2" Body mass index (BMI) [Ratio] 20.8 kg/m2 20.8 k g/m2 [facility] ([facility], [facility]) Systolic blood pressure--sitting 103 mm[Hg] 103 mm[Hg] [facility] ([facility]) Diastolic blood pressure--sitting 71 mm[Hg] 71 mm[Hg] [facility] ([facility]) Heart rate 63 /min 63 /min [facility] ([facility]) Body temperature 97.8 [degF] 97.8 [degF] [facility] ([facility]) Oral Respiratory rate 16 /min 16 /min [facility] ( [facility]) Oxygen saturation in Arterial blood by Pulse oximetry 100 % 100 % [facility] ([facility]) Body mass index (BMI) [Ratio] 21.9 kg/m2 21.9 k g/m2 [facility] ([facility]) Body surface area Derived from formula 1.54 m2 1.54 m2 [facility] ([facility]) Body weight 120.00 [lb_av] 120.00 [lb_av] [facility] T ([facility]) Body weight 54.432 kg 54.432 kg [facility] ([facility]) Body height 62 [in_i] 62 [in_i] [facility] ([facility]) 5'2" Body mass index (BMI) [Ratio] 21.58 kg/m2 21.58 kg/m2 eCW1 ([facility]) Body weight 118 [lb_av] 118 [lb_av] eCW1 ([facility]) Body weight 53.52 kg 53.52 kg eCW1 ([facility]) Body height 62 [in_i] 62 [in_i] eCW1 ([facility]) Systolic blood pressure 102 mm[Hg] 102 mm[Hg] e CW1 ([facility]) Diastolic blood pressure 68 mm[Hg] 68 mm[Hg] eCW1 ([facility]) Body height 62.5 [in_i] 62.5 [in_i] [facility] ([facility]) 5'2.50" Body temperature 97.1 [degF] 97.1 [degF] [facility] ([facility]) Body weight 119.25 [lb_av] 119.25 [lb_av] [facility] T ([facility]) Body mass index (BMI) [Ratio] 21.5 kg/m2 21.5 k g/m2 [facility] ([facility]) Systolic blood pressure 113 mm[Hg] 113 mm[Hg] M [facility] ([facility], [facility]) Diastolic blood pressure 64 mm[Hg] 64 mm[Hg] [facility] ([facility], [facility]) Heart rate 70 /min 70 /min [facility] ([facility], [facility]) Respiratory rate 18 /min 18 /min [facility] ( [facility], [facility]) Oxygen saturation in Arterial blood by Pulse oximetry 98 % 98 % [facility] ([facility], [facility]) Body temperature 98.0 [degF] 98.0 [degF] [facility] ([facility], [facility]) Body weight 114.00 [lb_av] 114.00 [lb_av] [facility] T ([facility], [facility]) Body height 62 [in_i] 62 [in_i] [facility] ([facility], [facility]) 5'2" Body mass index (BMI) [Ratio] 20.8 kg/m2 20.8 k g/m2 [facility] ([facility], [facility]) Body weight 128 [lb_av] 128 [lb_av] eCW1 ([facility]) Body weight 58.06 kg 58.06 kg W1 ([facility]) Body height 62 [in_i] 62 [in_i] eCW1 ([facility]) Body mass index (BMI) [Ratio] 23.41 kg/m2 23.41 kg/m2 eCW1 ([facility]) Systolic blood pressure 118 mm[Hg] 118 mm[Hg] e CW1 ([facility]) Diastolic blood pressure 68 mm[Hg] 68 mm[Hg] eCW1 ([facility]) Body temperature 97.1 [degF] 97.1 [degF] [facility] ([facility] Body height 62 [in_i] 62 [in_i] [facility] ([facility] ) 5'2" Body weight 125.00 [lb_av] 125.00 [lb_av] [facility] T ([facility] ) Body mass index (BMI) [Ratio] 22.9 kg/m2 22.9 k g/m2 [facility] ([facility] ) Respiratory rate 16 /min 16 /min [facility] ( [facility], [facility]) Systolic blood pressure 116 mm[Hg] 116 mm[Hg] M EDENT ([facility], [facility]) Diastolic blood pressure 81 mm[Hg] 81 mm[Hg] [facility] ([facility], [facility]) Heart rate 91 /min 91 /min [facility] ([facility], [facility]) Oxygen saturation in Arterial blood by Pulse oximetry 98 % 98 % [facility] ([facility], [facility]) Body temperature 98.3 [degF] 98.3 [degF] [facility] ([facility], [facility]) Body weight 125.00 [lb_av] 125.00 [lb_av] MEDEN T ([facility], [facility]) Body height 62 [in_i] 62 [in_i] [facility] ([facility], [facility]) 5'2" Body mass index (BMI) [Ratio] 22.9 kg/m2 22.9 k g/m2 [facility] ([facility], [facility]) Body surface area Derived from formula 1.56 m2 1.56 m2 [facility] ([facility]) Body height 62 [in_i] 62 [in_i] [facility] ([facility]) 5'2" Body temperature 98.0 [degF] 98.0 [degF] [facility] ([facility]) Systolic blood pressure 104 mm[Hg] 104 mm[Hg] M [facility]ENT ([facility]) Diastolic blood pressure 68 mm[Hg] 68 mm[Hg] [facility] ([facility]) Heart rate 86 /min 86 /min [facility] ([facility]) Respiratory rate 16 /min 16 /min [facility] ( [facility]) Oxygen saturation in Arterial blood by Pulse oximetry 97 % 97 % [facility] ([facility]) Body weight 123.38 [lb_av] 123.38 [lb_av] [facility] T ([facility]) Body weight 55.963 kg 55.963 [facility] Body mass index (BMI) [Ratio] 22.6 kg/m2 22.6 k g/m2 [facility] ([facility]) Body mass index (BMI) [Ratio] 22.9 kg/m2 22.9 k g/m2 [facility] ([facility], [facility]) Systolic blood pressure 118 mm[Hg] 118 mm[Hg] M EDENT ([facility], [facility]) Oxygen saturation in Arterial blood by Pulse oximetry 100 % 100 % [facility] ([facility], [facility]) Body height 62 [in_i] 62 [in_i] [facility] ([facility], [facility]) 5'2" Diastolic blood pressure 79 mm[Hg] 79 mm[Hg] [facility] ([facility], [facility]) Heart rate 91 /min 91 /min [facility] ([facility], [facility]) Respiratory rate 14 /min 14 /min [facility] ( [facility], [facility]) Body temperature 98.6 [degF] 98.6 [degF] [facility] ([facility], [facility]) Body weight 125.00 [lb_av] 125.00 [lb_av] [facility] Systolic blood pressure 135 mm[Hg] 135 mm[Hg] [facility]) Diastolic blood pressure 82 mm[Hg] 82 mm[Hg] [facility] ([facility], [facility]) Heart rate 102 /min 102 /min [facility] ([facility], [facility]) Respiratory rate 16 /min 16 /min [facility] ( [facility], [facility]) Body temperature 99.1 [degF] 99.1 [degF] [facility] ([facility], [facility]) Body weight 125.00 [lb_av] 125.00 [lb_av] [facility] Body height 62 [in_i] 62 [in_i] [facility] ([facility], [facility]) 5'2" Oxygen saturation in Arterial blood by Pulse oximetry 98 % 98 % [facility] ([facility], [facility]) Body mass index (BMI) [Ratio] 22.9 kg/m2 22.9 k g/m2 [facility] ([facility], [facility]) Patient Treatment Plan of Care Planned Activity Planned Date Details Description Data Source (s) Metronidazole 500 MG Oral Tablet 01/01/2021 12:00:00 AM [facility])
--- NOTE | 2021-02-28 10:09 | ECGEPIP ---
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
== END 2021-02-26 10:43 | disposition left against medical advice (07) ==
LOC: M ED 07:17
DX: Z53.29 Procedure and treatment not carried out because of patient's decision for other reasons (principal)

== ENCOUNTER → 2021-03-28 | Outpatient (REF) | payer OTHER ==
[2021-03-28 23:18] LABS: RSV AMPLIFICATION NEGATIVE (NEGATIVE)
== END ==
LOC: M LAB REF 18:15
PROVIDERS: ATTEND Physician Assistant
DX: R05.9 Cough, unspecified (principal)

== ENCOUNTER → 2021-05-24 | Outpatient (REF) | payer OTHER | LOC: M WUC 10:06 | PROVIDERS: ATTEND Physician Assistant | DX: J06.9 Acute upper respiratory infection, unspecified (principal) ==

== ENCOUNTER → 2021-09-18 | Outpatient (CLI) | payer OTHER ==
[2021-09-18 10:53] LABS: BASO # 0.1 10^3/uL (0.0-0.2); BASO % 0.6 % (0.0-1.0); EOS # 0.2 10^3/uL (0.0-0.5); EOS % 2.3 % (0.0-3.0); HEMATOCRIT 39.7 % (36.0-47.0); HEMOGLOBIN 12.7 g/dl (12.0-15.5); LYMPH # 2.2 10^3/uL (1.5-5.0); LYMPH % 27.3 % (24.0-44.0); MEAN CORPUSCULAR HEMOGLOBIN 28.5 pg (27.0-33.0); MEAN CORPUSCULAR VOLUME 89.2 fl (80.0-96.0); MONO # 0.6 10^3/uL (0.0-0.8); MONO % 7.1 % (2.0-8.0); NEUTROPHILS # 4.9 10^3/uL (1.5-8.5); NEUTROPHILS % 62.4 % (36.0-66.0); PLATELET COUNT, AUTOMATED 331 10^3/uL (150-450); RED BLOOD COUNT 4.45 10^6/uL (4.00-5.40); WHITE BLOOD COUNT 7.9 10^3/uL (4.0-10.0)
[2021-09-18 11:26] LABS: ALBUMIN 3.6 GM/DL (3.2-5.2); ALT/SGPT 14 U/L (12-78); AMYLASE 63 U/L (25-115); BILIRUBIN,TOTAL 0.3 MG/DL (0.2-1.0); BLOOD UREA NITROGEN 9 MG/DL (7-18); CALCIUM LEVEL 9.6 MG/DL (8.5-10.1); CARBON DIOXIDE LEVEL 26 MEQ/L (21-32); CHLORIDE LEVEL 105 MEQ/L (98-107); CREATININE FOR GFR 0.75 MG/DL (0.55-1.30); GLOMERULAR FILTRATION RATE > 60.0 (>60); GLUCOSE, FASTING 84 MG/DL (70-100); LIPASE 121 U/L (73-393); POTASSIUM SERUM 4.3 MEQ/L (3.5-5.1); SODIUM LEVEL 138 MEQ/L (136-145)
== END ==
LOC: M WUC 08:29
PROVIDERS: ATTEND Physician Assistant
DX: R10.815 Periumbilic abdominal tenderness (principal)

== ENCOUNTER → 2021-10-25 | Outpatient (REF) | payer OTHER | LOC: M PLALAB 16:46 | PROVIDERS: ATTEND Nurse Practitioner Family | DX: Z11.3 Encounter for screening for infections with a predominantly sexual mode of transmission (principal) ==

== ENCOUNTER → 2022-02-26 | Outpatient (REF) | payer OTHER ==
[2022-02-26 22:39] LABS: GC DNA AMPLIFICATION NEGATIVE (NEGATIVE)
== END ==
LOC: M LAB REF 16:14
PROVIDERS: ATTEND Physician Assistant
DX: R10.2 Pelvic and perineal pain (principal)

== ENCOUNTER → 2022-03-05 | Outpatient (CLI) | payer OTHER | LOC: M RAD 15:28 | PROVIDERS: ATTEND Physician Assistant | DX: R10.2 Pelvic and perineal pain (principal); R10.30 Lower abdominal pain, unspecified ==

== ENCOUNTER → 2022-05-28 | Outpatient (CLI) | payer OTHER | LOC: M WHC 13:29 | PROVIDERS: ATTEND Nurse Practitioner Family | DX: E28.2 Polycystic ovarian syndrome (principal) ==

== ENCOUNTER → 2022-07-15 | Outpatient (REF) | payer OTHER | LOC: M PLALAB 13:18 | PROVIDERS: ATTEND Nurse Practitioner Family | DX: Z12.4 Encounter for screening for malignant neoplasm of cervix (principal) ==

== ENCOUNTER → 2023-02-11 | Outpatient (REF) | payer OTHER | LOC: M LAB REF 09:55 | PROVIDERS: ATTEND Physician Assistant | DX: R30.0 Dysuria (principal) ==

== ENCOUNTER → 2023-05-23 | Outpatient (REF) | payer OTHER | LOC: M LAB REF 09:30 | PROVIDERS: ATTEND Nurse Practitioner Family | DX: J06.9 Acute upper respiratory infection, unspecified (principal) ==

== ENCOUNTER → 2023-07-31 | Outpatient (REF) | payer OTHER | LOC: M SFHCWAGY 15:06 | PROVIDERS: ATTEND Nurse Practitioner Family | DX: Z12.4 Encounter for screening for malignant neoplasm of cervix (principal) ==

== ENCOUNTER → 2023-10-21 | Outpatient (REF) | payer OTHER | LOC: M LAB REF 16:11 | PROVIDERS: ATTEND Nurse Practitioner Family | DX: R30.0 Dysuria (principal) ==

== ENCOUNTER → 2025-02-01 | Outpatient (REF) | payer OTHER ==
[~2025-02-01] MED LIST changes: -IBUP-1022 PO; +IBUP600T42 PO
[2025-02-04 14:28] LABS: HPV APTIMA Not Detected (Not Detected)
== END ==
LOC: M SFHCWAGY 13:13
PROVIDERS: ATTEND Advanced Practice Midwife
DX: Z12.4 Encounter for screening for malignant neoplasm of cervix (principal); R87.610 Atypical squamous cells of undetermined significance on cytologic smear of cervix (ASC-US)